=== PATIENT | male | born 1975 | race African-American/Black ===

== ENCOUNTER 2019-08-19 17:01 | Emergency (ER) | payer OTHER, SELFPAY ==
[2019-08-19 17:03] VITALS: BP 161/102; PULSE 132; RESP 18; TEMP 36.7; O2SAT 98; BMI 48.6
--- NOTE | 2019-08-19 17:07 | EKG12_ITS ---
Test Reason : DYSRHYTHMIA Blood Pressure : / mmHG Vent. Rate : 125 BPM Atrial Rate : 125 BPM P-R Int : 154 ms QRS Dur : 088 ms QT Int : 326 ms P-R-T Axes : 057 200 031 degrees QTc Int : 470 ms Sinus tachycardia with occasional Premature ventricular complexes Poor R wave progression Confirmed by AYLIN NAM, YOLANDA ([id number]), magazine editor CAHNTELL SERNA ([id number]) on 08/21/2019 11:11:12 AM Referred By: SKYLA Confirmed By:YOLANDA VIERA MD
--- NOTE | 2019-08-19 17:12 | ED.VIS.GEN ---
History of Present Illness Informant: Patient Onset: Today Context: Sudden Onset Timing: Continuous Quality: Palpitations Location: Chest Current Severity: Severe Maximum Severity: Severe Worsened by: Nothing Relieved by: nothing Associated Symptoms: Lightheadedness Narrative: 43-year-old male with a history of hypertension currently on Lisinopril hydrochlorothiazide presents with palpitations and lightheadedness. Patient ate an edible about an hour ago first time he never done that and now he feels palpitations and lightheadedness. No chest pain. No diaphoresis. No nausea or vomiting. No hallucinations. No recent travel or surgery. No history of DVT or PE. No leg pain or swelling. Over the past several months he has not had any illnesses hospitalizations and has been feeling well <Antione Ramachandran - Last Filed: 08/19/19 17:44> <Elio Ann - Last Filed: 08/19/19 18:33> Chief Complaint: Palpitations Past Medical History Prior records reviewed: Yes Past Medical History: - - HTN Surgical History: no surgical history Lives: With Family Smoking Status: Never smoker Alcohol: Occasional Drugs: Marijuana <Antione Ramachandran - Last Filed: 08/19/19 17:44> <Elio Ann - Last Filed: 08/19/19 18:33> - Allergies and Home Meds Allergies/Adverse Reactions: Allergies No Known Allergies Allergy (Verified 08/19/19 17:05) Primary Care Physician: Neli Flor [Primary Care Provider] - Review of Systems All systems negative except as indicated General: Denies: Chills, Fever, Sweats Eyes: Denies: Visual changes - bilaterally, Diplopia ENT: Denies: Rhinorrhea, Sore throat Cardiovascular: Reports: Palpitations, Heart racing. Denies: Chest pain Respiratory: Denies: Dyspnea, Cough, Dyspnea on exertion Gastrointestinal: Denies: Abdominal pain, Nausea, Vomiting, Diarrhea, Melena, Hematochezia Genitourinary: Denies: Dysuria, Hematuria, Frequency Musculoskeletal: Denies: Back pain, Extremity Pain Skin: Denies: Rash, Wounds Neurological: Denies: Headache, Weakness, Numbness <Antione Ramachandran - Last Filed: 08/19/19 17:44> Physical Exam Vital Signs/Narrative: Vital Signs Temp Pulse Resp BP Pulse Ox 08/19/19 17:03 98.1 F 132 H 18 161/102 H 98 Inital Vital Signs reviewed: Yes General: Well nourished, Well developed, No Acute Distress Head: Normocephalic, Atraumatic Eyes: Perrl, EOMI ENT: Moist mucous membranes, No rhinorrhea Neck: Supple, Nontender Cardiovascular: Regular rhythm, No murmurs, Tachycardia Respiratory: No distress, CTA bilaterally, Chest nontender Abdomen: Soft, Nontender, Nondistended, Normal bowel sounds Back: Nontender, Normal Inspection. Negative for: CVA tenderness, Spinal tenderness Extremities: Nontender, No edema. Negative for: Tenderness, Edema, Calf Tenderness Skin: Normal color, No rash Neurological: Alert, Oriented x3, Cranial nerves II-XII grossly intact, Normal Strength, Normal Sensation, Normal Gait Psychological: Normal affect, Normal Mood <Antione Ramachandran - Last Filed: 08/19/19 17:44> Vital Signs/Narrative: Vital Signs Temp Pulse Resp BP Pulse Ox 08/19/19 17:03 98.1 F 132 H 18 161/102 H 98 <Elio Ann - Last Filed: 08/19/19 18:33> Diagnostic/Tx/Re-eval - Rhythm Strip Rhythm Strip: Sinus Tach Rate: 125 Ectopy: None - EKG Initial EKG Interpretation: Sinus Tachycardia Prior: No Prior - Medical Decision Making EKG was sinus tachycardia rate of 125 bpm with premature ventricular complexes noted but no signs of ischemia. Patient likely having a reaction from the edible. His vital signs stable. 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 Labs are pending. <Antione Ramachandran - Last Filed: 08/19/19 17:44> - Medical Decision Making I supervised the PA and have performed my own pertinent history and physical. Results and treatment plan were discussed. HPI: Patient reports that he ate a marijuana infused gummy. He does not know how much THC he was in this. States that he does not use marijuana typically. Reports that shortly thereafter he began having palpitations and feeling anxious. PE: Vitals: Stable. Afebrile. General: Well-nourished and well-developed. Head: Normocephalic atraumatic. Neck: Supple, no lymphadenopathy. No JVD. Nontender. Cardiovascular: Tachycardic regular rhythm. No murmurs. Respiratory: No respiratory distress. Clear to auscultation bilaterally. Abdominal: Soft, nontender, nondistended, normal bowel sounds. No guarding, rebound, or peritoneal signs. Back: Nontender. Extremities: Nontender, no edema. Skin: Normal color, no rash. Neurologic: Alert and oriented ?3. Cranial nerves II through XII are intact. Normal strength and sensation. Psych: Normal affect. Test results: Abnormal Lab Results 08/19/19 08/19/19 17:20 17:20 WBC 7.2 RBC 5.14 Hgb 14.8 Hct 45.7 MCV 88.9 MCH 28.8 MCHC 32.4 RDW Std Deviation 44.4 H RDW Coeff of Steve 13.7 Plt Count 264 MPV 11.0 Immature Gran % (Auto) 0.100 Neut % (Auto) 41.7 L Lymph % (Auto) 45.6 H [place] % (Auto) 9.0 Eos % (Auto) 3.2 Baso % (Auto) 0.4 Absolute Neuts (auto) 3.0 Absolute Lymphs (auto) 3.29 Nucleated RBC % 0 Sodium 142 Potassium 2.7 L* Chloride 105 Carbon Dioxide 30.0 Anion Gap 7 BUN 13 Creatinine 1.16 Estim Creat Clear Calc 104.55 Est GFR (MDRD) Af Amer 89 Est GFR (MDRD) Non-Af 73 BUN/Creatinine Ratio 11.2 Glucose 118 H Calcium 9.0 TSH 0.55 Emergency Department course: Patient was observed over the course of an hour and a half. His heart rate is decreased into the 90s. He was given 60 mEq of K-Dur p.o. He was also given half a milligram of Ativan p.o. He is resting comfortably. Treatment Plan: The patient is on lisinopril/hydrochlorothiazide. He will have this changed to lisinopril alone. Is given a prescription for 5 days of potassium and instructed to follow-up with his primary care physician to have a repeat potassium obtained and changes in his blood pressure medication if needed. Return to the emergency department for any worsening symptoms. Disposition: Discharged in improved condition. This note was generated with Cortexaation software. It may contain incorrect words, spelling, and punctuation that were not noted in review of the chart prior to signing. <Elio Ann - Last Filed: 08/19/19 18:33> ED Disposition <Antione Ramachandran - Last Filed: 08/19/19 17:44> <Elio Ann - Last Filed: 08/19/19 18:33> - Plan for ED Patient: Disposition: Home or Assisted Living Diagnosis: PVC (premature ventricular contraction), Palpitations, Use of cannabinoid edibles Instructions: Premature Ventricular Contractions, ED Palpitations, Hypokalemia Prescriptions: Potassium Chloride [K-Dur] 40 meq PO DAILY #10 tablet Lisinopril 20 mg PO DAILY #30 tablet Referrals: [facility] Zoraida,Neli Canales [Primary Care Provider] - 3-5 Days
[2019-08-19 17:40] VITALS: BP 143/97; PULSE 105; RESP 18; O2SAT 98
[2019-08-19 17:43] LABS: Absolute Lymphocyte Count 3.29 X10^3/uL (0.83-4.51); Basophil# 0.03 X10^3/uL; Basophil% 0.4 % (0-1); Eosinophil# 0.23 X10^3/uL; Eosinophils% 3.2 % (0-5); Hematocrit 45.7 % (40-54); Hemoglobin 14.8 g/dL (13.0-16.5); Lymphocyte # 3.29 X10^3/ul (4.0); Lymphocyte % 45.6 % (19-41); Mean Corp Hgb Conc 32.4 g/dL (32-36); Mean Corpuscular Hgb 28.8 pg (27.0-32.0); Mean Corpuscular Volume 88.9 fL (80-94); Monocyte# 0.65 X10^3/uL; NRBC Flagged by Analyzer 0 % (0-5); Neutrophil % 41.7 % (47-70); Platelet Count 264 K/mm3 (150-450); RBC Distribution Width CV 13.7 % (11.6-14.6); RBC Distribution Width SD 44.4 fl (35.1-43.9); Red Blood Count 5.14 M/mm3 (4.6-6.2); White Blood Count 7.2 K/mm3 (4.4-11.0)
[2019-08-19 18:16] LABS: Anion Gap 7 (5-15); BUN 13 mg/dL (7-18); BUN/Creat Ratio 11.2 RATIO (10-20); Chloride 105 mmol/L (98-107); Creatinine, Serum 1.16 mg/dL (0.70-1.30); EST Glomerular Filtration Rate 73 mL/min (>60); Est Glom Filt Rate - Afr Amer 89 mL/min (>60); Estimated Creatinine Clearance 104.55 ml/min; Glucose 118 mg/dL (74-106); Sodium Level 142 mmol/L (136-145); Thyroid Stim Hormone (TSH) 0.55 uIU/mL (0.358-3.74)
[2019-08-19 18:17] LABS: Potassium 2.7 mmol/L (3.5-5.1)
[2019-08-19 18:46] VITALS: BP 136/84; PULSE 99; RESP 16; O2SAT 99
[2019-08-19] MEDS: LORazepam 0.5 MG Tablet PO (18:46)
== END 2019-08-19 19:10 | disposition home or self-care (01) ==
PROVIDERS: Emergency Provider Physician Assistant Medical
DX: I49.3 Ventricular premature depolarization (principal); F12.90 Cannabis use, unspecified, uncomplicated; I10 Essential (primary) hypertension; Z79.899 Other long term (current) drug therapy
CPT/HCPCS: 36415; 80048; 84443; 85025; 93005; 99284; A4216

== ENCOUNTER → 2020-01-11 08:51 | Outpatient (CLI) | payer OTHER, SELFPAY ==
[2020-01-11 10:03] LABS: ALB/GLOB Ratio 0.8 RATIO (0.9-2.4); AST(SGOT) 21 U/L (15-37); Alanine Aminotransfer ALT/SGPT 32 U/L (16-61); Albumin, Serum 3.4 g/dL (3.2-5.0); Alkaline Phosphatase 46 U/L (45-117); Anion Gap 7 (5-15); BUN 14 mg/dL (7-18); BUN/Creat Ratio 13.9 RATIO (10-20); Chloride 106 mmol/L (98-107); Creatinine, Serum 1.01 mg/dL (0.70-1.30); EST Glomerular Filtration Rate 86 mL/min (>60); Est Glom Filt Rate - Afr Amer 104 mL/min (>60); Globulin 4.2 g/dL (2.2-4.2); Glucose 102 mg/dL (74-106); Potassium 3.3 mmol/L (3.5-5.1); Protein, Total 7.6 g/dL (6.4-8.2); Sodium Level 141 mmol/L (136-145)
[2020-01-11 10:06] LABS: Vitamin D,25 Hydroxy 27.6 ng/mL
[2020-01-11 10:12] LABS: Hemoglobin A1c 5.7 % (3.8-5.6)
== END ==
LOC: LAB 08:57
PROVIDERS: Visit Provider Family Medicine
DX: I10 Essential (primary) hypertension (principal); R73.01 Impaired fasting glucose; E55.9 Vitamin D deficiency, unspecified
CPT/HCPCS: 36415; 80053; 82306; 83036

== ENCOUNTER 2020-01-11 09:22 | Inpatient (IN) | payer OTHER, SELFPAY ==
[2020-01-11] VITALS (29 sets, daily range): BP systolic 108–160; BP diastolic 59–102; PULSE 83–153; RESP 13–22; TEMP 36.6–37; O2SAT 96–100; BMI 48.8; BMI 48.7
--- NOTE | 2020-01-11 10:06 | ED.DCSUM_ITS ---
History of Present Illness Chief Complaint: Palpitations Informant: Patient Narrative: 44-year old male presenting with a couple of days of upper back pain and slight chest pressure associated with a feeling of dizziness. He denies any cardiac history. He is not had a fever or a cough. He does feel like he short of breath. States that he has an ingrown hair follicle in the back of his head which he thinks is making him feel this way. History of DVT/PE. Patient has sleep apnea and wears a CPAP at night. Otherwise his only medical problem is hypertension. Past Medical History - Allergies and Home Meds Allergies/Adverse Reactions: Allergies No Known Allergies Allergy (Verified 01/11/20 09:22) [facility] - Prior records reviewed: Yes Past Medical History: - - Hypertension, sleep apnea Surgical History: no surgical history Smoking Status: Never smoker Alcohol: Occasional Drugs: None Review of Systems General: Denies: Chills, Fever Eyes: Denies: Visual changes - bilaterally, Diplopia ENT: Denies: Rhinorrhea, Sore throat Cardiovascular: Reports: Chest pain, Palpitations Respiratory: Reports: Dyspnea, Dyspnea on exertion. Denies: Cough Gastrointestinal: Denies: Abdominal pain, Nausea, Vomiting, Diarrhea, Melena, Hematochezia Genitourinary: Denies: Dysuria, Hematuria, Frequency Musculoskeletal: Denies: Back pain, Extremity Pain Skin: Denies: Rash, Wounds Neurological: Denies: Headache, Weakness, Numbness Physical Exam Vital Signs/Narrative: Vital Signs Temp Pulse Resp BP Pulse Ox 01/11/20 09:39 153 H 20 H 118/66 99 01/11/20 09:23 98.5 F 152 H 16 122/102 H 100 General: Obese, No Acute Distress Head: Normocephalic, Atraumatic Eyes: Perrl, EOMI ENT: Moist mucous membranes, No rhinorrhea Cardiovascular: Regular rhythm, Tachycardia Respiratory: No distress, CTA bilaterally Abdomen: Soft Extremities: Nontender, No edema Skin: Normal color, No rash. Negative for: Diaphoresis Neurological: Alert, Oriented x3 Psychological: Normal affect, Normal Mood Diagnostic/Tx/Re-eval Clinical Impression(s) from Imaging Studies Chest X-Ray 01/11/20 11:00 IMPRESSION: Hyperinflation. Electronically Signed: Alphonso Dick, at 12:30 EST , Service support , Laboratory Data 01/11/20 01/11/20 01/11/20 09:50 10:25 10:25 WBC 5.8 RBC 5.02 Hgb 14.6 Hct 45.3 MCV 90.2 MCH 29.1 MCHC 32.2 RDW Std Deviation 46.3 H RDW Coeff of Steve 14.1 Plt Count 239 MPV 11.4 Immature Gran % (Auto) 0.300 Neut % (Auto) 53.4 Lymph % (Auto) 32.2 [place] % (Auto) 11.0 H Eos % (Auto) 2.6 Baso % (Auto) 0.5 Absolute Neuts (auto) 3.1 Absolute Lymphs (auto) 1.87 Nucleated RBC % 0 D-Dimer Quant (PE/DVT) 0.46 Sodium 141 Potassium 3.6 Chloride 104 Carbon Dioxide 32.0 Anion Gap 5 BUN 14 Creatinine 1.02 Estim Creat Clear Calc 117.68 Est GFR (MDRD) Af Amer 103 Est GFR (MDRD) Non-Af 85 BUN/Creatinine Ratio 13.7 Glucose 100 Lactic Acid Calcium 9.0 Total Bilirubin 0.80 AST 18 ALT 33 Alkaline Phosphatase 44 L Troponin I 0.088 H Total Protein 7.7 Albumin 3.4 Globulin 4.3 H Albumin/Globulin Ratio 0.8 L 01/11/20 10:25 WBC RBC Hgb Hct MCV MCH MCHC RDW Std Deviation RDW Coeff of Steve Plt Count MPV Immature Gran % (Auto) Neut % (Auto) Lymph % (Auto) [place] % (Auto) Eos % (Auto) Baso % (Auto) Absolute Neuts (auto) Absolute Lymphs (auto) Nucleated RBC % D-Dimer Quant (PE/DVT) Sodium Potassium Chloride Carbon Dioxide Anion Gap BUN Creatinine Estim Creat Clear Calc Est GFR (MDRD) Af Amer Est GFR (MDRD) Non-Af BUN/Creatinine Ratio Glucose Lactic Acid 1.2 Calcium Total Bilirubin AST ALT Alkaline Phosphatase Troponin I Total Protein Albumin Globulin Albumin/Globulin Ratio - EKG Initial EKG Interpretation: Atrial Flutter - Medical Decision Making Patient presents with feeling of lightheadedness and shortness of breath. This did trigger Covid?19 precautions and is kept in isolation. His initial EKG showed that he was in a flutter and he was given Cardizem twice which did control his rate. He was then given p.o. metoprolol. His chest pressure did improve. X-ray is negative. D-dimer is negative. Troponin was slightly elevated. He was given aspirin. I did address the ingrown hair on the back of his scalp. After further discussion he states this is a sebaceous cyst with Dr. Santos told him did not need to be removed. She did incise and drain it once before. I did crisis intervention counselor him that I could do an incision and drainage on it however this would not be curative the cyst actually has to be removed for it to go away. At this point he does not want me to do any procedure. there is small dense area on the right occiput. He states he will follow-up with Dr. Santos. Impression: 1. Chest pain 2. A flutter 3. Shortness of breath 4. Sebaceous cyst 5. Elevated troponin ED Disposition - Plan for ED Patient: Disposition: Acute Care Hospital [facility] -
[2020-01-11 10:38] LABS: Absolute Lymphocyte Count 1.87 X10^3/uL (0.83-4.51); Absolute Neutrophil Count 3.1 X10^3/uL (2.0-7.7); Basophil# 0.03 X10^3/uL; Basophil% 0.5 % (0-1); Eosinophil# 0.15 X10^3/uL; Eosinophils% 2.6 % (0-5); Hematocrit 45.3 % (40-54); Hemoglobin 14.6 g/dL (13.0-16.5); Lymphocyte # 1.87 X10^3/ul (4.0); Lymphocyte % 32.2 % (19-41); Mean Corp Hgb Conc 32.2 g/dL (32-36); Mean Corpuscular Hgb 29.1 pg (27.0-32.0); Mean Corpuscular Volume 90.2 fL (80-94); Mean Platelet Vol. 11.4 fl (6.2-12.0); Monocyte# 0.64 X10^3/uL; NRBC Flagged by Analyzer 0 % (0-5); Neutrophil # 3.09 X10^3/uL (2.7-7.7); Neutrophil % 53.4 % (47-70); Platelet Count 239 K/mm3 (150-450); RBC Distribution Width CV 14.1 % (11.6-14.6); RBC Distribution Width SD 46.3 fl (35.1-43.9); Red Blood Count 5.02 M/mm3 (4.6-6.2); White Blood Count 5.8 K/mm3 (4.4-11.0)
[2020-01-11 10:47] LABS: D-Dimer Quantitative (DVT/PE) 0.46 FEU/ug/m (0.27-0.49)
[2020-01-11 10:53] LABS: ALB/GLOB Ratio 0.8 RATIO (0.9-2.4); AST(SGOT) 18 U/L (15-37); Alanine Aminotransfer ALT/SGPT 33 U/L (16-61); Albumin, Serum 3.4 g/dL (3.2-5.0); Alkaline Phosphatase 44 U/L (45-117); Anion Gap 5 (5-15); BUN 14 mg/dL (7-18); BUN/Creat Ratio 13.7 RATIO (10-20); Chloride 104 mmol/L (98-107); Creatinine, Serum 1.02 mg/dL (0.70-1.30); EST Glomerular Filtration Rate 85 mL/min (>60); Est Glom Filt Rate - Afr Amer 103 mL/min (>60); Estimated Creatinine Clearance 117.68 ml/min; Globulin 4.3 g/dL (2.2-4.2); Glucose 100 mg/dL (74-106); Potassium 3.6 mmol/L (3.5-5.1); Protein, Total 7.7 g/dL (6.4-8.2); Sodium Level 141 mmol/L (136-145)
[2020-01-11] MEDS: Aspirin 81 MG TAB.CHEW 324 MG PO (10:54)
[2020-01-11] MEDS: 0.9% Normal Saline 1,000 ML 1000 ML IV (10:54)
[2020-01-11 10:55] LABS: Lactic Acid 1.2 mmol/L (0.4-1.9)
[2020-01-11] MEDS: dilTIAZem 25 MG/5 ML Vial IV BOLUS ×2 (10:55→11:45)
--- NOTE | 2020-01-11 11:00 | RAD_ITS ---
STUDY: X-RAY CHEST REASON FOR EXAM: Male, 44 years old. COUGH -- PALPATIONS -- DIZZINESS TECHNIQUE: Single AP portable view of the chest. COMPARISON: Comparison is made with prior study dated 10/25/2012. FINDINGS: Hyperinflation. The lungs are clear. The lungs are clear and expanded. There is no demonstrated pleural abnormality. Normal size heart. Normal mediastinum and shannan. Normal visualized pulmonary arteries. Normal visualized aortic arch and descending thoracic aorta. Normal visualized thoracic spine. Normal visualized ribs, clavicles, and shoulders. There is no demonstrated abnormality of the visualized soft tissue structures of the upper abdomen. RAD/Chest 1 View (Portable) IMPRESSION: Hyperinflation. Electronically Signed: Alphonso Dick, at 12:30 EST , Service support ,
[2020-01-11] MEDS: Metoprolol Tartrate 25 MG Tablet PO (13:19)
[2020-01-11] MEDS: Metoprolol Tartrate 5 MG/5 ML Vial IV (15:01)
--- NOTE | 2020-01-11 15:07 | HP.PCM_ITS ---
Problem List (1) Atrial fibrillation Status: Acute (2) Elevated troponin Status: Acute (3) Infected sebaceous cyst Status: Chronic (4) CHRISTOPHER on CPAP Status: Chronic Comment: Wears CPAP at HS with 14 cmH2O (5) HTN, goal below 130/80 Status: Chronic History of Present Illness Date of Admission: 01/11/20 Chief Complaint: Palpitations, lightheadedness, SOB Mr Patricia is a 44 year old AAM with a PMH of HTN, CHRISTOPHER, infected sebaceous cyst and MO who presented to the ED at [facility] on 01/11/2020 with palpitations, lightheadedness and SOB. He states that he started to have sx on Tuesday while sitting at the bar drinking a Daiquiri and he admits that he has had it ever sin ce then. He came in today because he had and episode where he felt like he was going to pass out. In the ED he was found to have a HR of 150+ and EKG shows A- fib. He was given Cardizem initially and now Metoprolol and his HR are coming down but he remains > 100 BMP. He is afebrile, RR is 16-20 and he is satting 97-99% on RA. Lab work is overall unimpressive except for a troponin of 0.088.His D-dimer was WNL. He also has an infected Sebacceous cyst on the back of his head which he has been dealing with for a good part of 2019. He had an I&D by derm but the sac was not removed. It the recurred but ruptured spontaneously and now occurred for the 3rd time. He states that this happens after he gets his haircut. He is currently on Keflex but it is not improving. I&D was done in the ED today. He admits that he drinks about 2 doubles of vodka and 3 12 oz beers every other day but can go long periods of time without drinking and never has a problem. Past Medical History Past Medical History (Chronic Problems): Chronic Problems Infected sebaceous cyst (Chronic) CHRISTOPHER on CPAP (Chronic) Wears CPAP at HS with 14 cmH2O HTN, goal below 130/80 (Chronic) Allergies No Known Allergies Allergy (Verified 01/11/20 09:22) Home Medications: Ambulatory Orders Medication Instructions Recorded Hydrochlorothiazide [Hctz] 25 mg PO DAILY 01/11/20 Lisinopril 40 mg PO DAILY 01/11/20 Westgate-3/Dha/Epa/Fish Oil [[place] 3 1 cap PO DAILY 01/11/20 500 Softgel] Zinc Sulfate (50mg elemental) 220 mg PO DAILY 01/11/20 [Zinc Sulfate] Surgical History: no surgical history Psychiatric History: No pertinent psych hx Lives: With Family Smoking Status: Never smoker Tobacco Use: Non-smoker Alcohol: Heavy Drugs: None Review of Systems Constitutional: Denies: Anorexia, Chills, Fever, Night Sweats, Malaise, Weakness, Weight Change, Fatigue Eyes: Denies: Blurred vision, Double vision, Drainage, Eyelid Inflammation, Pain, Redness, Vision Change HEENT: Denies: Difficulty Hearing, Difficulty Swallowing, Head Aches, Nasal bleeding, Nasal Congestion, Post Nasal Drip, Sinus Congestion, Sinus Drainage, Sore Throat, Visual Changes Cardiovascular: Reports: Palpitations, - - presyncope. Denies: Chest Pain, Chest Pressure, Chest Tightness, Edema, Heaviness, Light Headedness, Orthopnea, Paroxysmal Noc. Dyspnea, Syncope Respiratory: Reports: Shortness of Breath, Shortness of breath at rest, Shortness of breath upon exertion. Denies: Cough, Hemoptysis, Pleuritic Pain, Sputum production, Wheezing Gastrointestinal: Denies: Abdominal Pain, Constipation, Diarrhea, Dyspepsia, Hematemesis, Hematochezia, Nausea, Melena, Vomiting Genitourinary: Denies: Dysuria, Frequency, Hematuria, Hesitancy, Incontinence, Nocturia, Retention, Urgency Musculoskeletal: Denies: Back Pain, Joint Pain, Joint stiffness, Joint swelling, Joint Tenderness, Muscle pain, Neck Pain Skin: Denies: Dryness, Jaundice, Lesions, Pruritis, Rash, Skin Changes, Wounds Neurological: Denies: Balance problems, Blurred vision, Double vision, Change in Speech, Slurred speech, Confusion, Difficulty swallowing, Focal weakness, Headaches, Incoordination, Numbness, Tingling, Tremor, Seizures Psychiatric: Denies: Anxiety, Depression Endocrine: Denies: Change in Body Habitus, Heat/ Cold Intolerance, Polydipsia Hematologic/ Lymphatic: Denies: Adenopathy, Anemia, Easy Bruising, Easy Bleeding, Petechiae, Purpura VTE Information - Inpt Only VTE Present on Admission: No VTE Mechan Device Prophylaxis: None VTE Pharm Prophylaxis ordered?: Yes - Physical Exam Vitals/I&O's: Vital Signs Temp Pulse Resp BP Pulse Ox 98.5 F 114 H 20 H 119/84 H 100 01/11/20 09:23 01/11/20 15:01 01/11/20 15:01 01/11/20 15:01 01/11/20 15:01 Oxygen Delivery Method Room Air Weight: 186.7 kg Body Mass Index (BMI) 48.8 Intake and Output for Last 24 Hours 01/09/20 01/10/20 01/11/20 23:59 23:59 23:59 Intake Total 1000 / 1000 Balance 1000 / 1000 General: Alert, Oriented x3, Cooperative, Well developed, Well nourished, - - very pleasant MO AAM sitting up in bed talking on phone HEENT: Atraumatic, PERRLA, EOMI, Normocephalic, EAC Clear Oral: Moist Mucosa, No Gingival or Mucosal Lesions/ Ulcerations, - - Mallampati 3-4 Neck: Supple, No JVD, Negative Carotid Bruits, Negative Hepatojugular Reflux, No Nodes, No Nuchal Rigidity, Trachea Midline, Thyroid Normal Size and Texture, - - short thick neck Lungs: Clear to auscultation, Normal air movement, No rhonchi, No wheeze, No rales, - - distant Cardiovascular: Normal S1, Normal S2, No murmurs, Irregular Rate, No rub noted, No Gallop, Tachycardic Abdomen: Bowel Sounds Present, Soft, Non Tender, Non-Distended, No Hepato- splenomegaly, Obese Extremities: No clubbing, No cyanosis, No edema, Capillary Refill Less than 3 Seconds, Peripheral Pulses Normal Skin: No rashes, No breakdown Musculoskeletal: No Tenderness to Palpation of Joints or Extremities, No Muscle Wasting Lymphatic: No Cervical, Supraclavicular, or Inguinal Adenopathy Neurological: Cranial nerves II-XII grossly intact, Deep Tendon Reflexes 2+/4 and Symmetrical, Neuro grossly intact, Motor Exam 5/5 strength throughout, Muscle tone normal, Sensory exam intact to light touch and pain, Coordination normal Psych/Mental Status: Normal Affect, Appropriate Laboratory Results 01/11/20 09:50: D-Dimer Quant (PE/DVT) 0.46 01/11/20 10:15: COVID-19 (TAI) Pending 01/11/20 10:25: WBC 5.8, RBC 5.02, Hgb 14.6, Hct 45.3, MCV 90.2, MCH 29.1, MCHC 32.2, RDW Std Deviation 46.3 H, RDW Coeff of Steve 14.1, Plt Count 239, MPV 11.4, Immature Gran % (Auto) 0.300, Neut % (Auto) 53.4, Lymph % (Auto) 32.2, [place] % (Auto) 11.0 H, Eos % (Auto) 2.6, Baso % (Auto) 0.5, Absolute Neuts (auto) 3.1, Absolute Lymphs (auto) 1.87, Nucleated RBC % 0 01/11/20 10:25: Sodium 141, Potassium 3.6, Chloride 104, Carbon Dioxide 32.0, Anion Gap 5, BUN 14, Creatinine 1.02, Estim Creat Clear Calc 117.68, Est GFR (MDRD) Af Amer 103, Est GFR (MDRD) Non-Af 85, BUN/Creatinine Ratio 13.7, Glucose 100, Calcium 9.0, Total Bilirubin 0.80, AST 18, ALT 33, Alkaline Phosphatase 44 L, Troponin I 0.088 H, Total Protein 7.7, Albumin 3.4, Globulin 4.3 H, Albumin/Globulin Ratio 0.8 L 01/11/20 10:25: Lactic Acid 1.2 Assessment/Plan All Active Problems Atrial fibrillation (Acute) Elevated troponin (Acute) New Onset Atrial Fibrillation -heparin ggt -Metoprolol 100 mg BID -check TSH/tox screen -recommend EtOH cessation -ECHO -Stress test in am -NPO after MN -consult cardiology Elevated Troponin -cycle enzymes -may be only from tachycardia -stress and Echo ordered -check lipids -start baby asa CHRISTOPHER -compliant with CPAP -14 cm H2O with CPAP at HS -device ordered HTN -Hold HCTZ for now -Metoprolol 100 mg BID for HR -hold lisinopril as well (40 mg daily) but use PRN Enaliprilat q 6 hr until we see what that much BB does to BP Infected Sebaceous Cyst -I&D per ED -Bactrim DSto Cover MRSA -blood cx sent but no cx from I&D noted -will need f/u with Derm for sac removal in future MO -recommend wgt loss EtOH Use -recommend cessation -no s/o withdrawal and no drink since yesterday -monitor DVT Prophylaxis -heparin ggt Code Status -Full Inpatient E&M: 00466 Init Hosp L3
--- NOTE | 2020-01-11 18:56 | ECHOCS_ITS ---
Reason For Study: NEW AFIB Procedure This was a 2D Doppler, Color Flow transthoracic echocardiogram. The study was technically difficult. Contrast injection was performed. Exam performed portable in patient room. Left Ventricle Moderately dilated left ventricle. Moderate segmental systolic dysfunction (see wall motion). The estimated ejection fraction is 30 %. There is evidence of diastolic dysfunction. Posterior-Basal: Hypokinetic. Mid-Anterior : Hypokinetic. Mid-Lateral : Hypokinetic. Mid-Posterior: Hypokinetic. Mid- Inferior: Hypokinetic. Mid-inferoseptal : Hypokinetic. Mid-anteroseptal : Hypokinetic. Anterior [place] : Hypokinetic. Inferior [place] : Hypokinetic. Lateral [place] : Hypokinetic. Septal [place] : Hypokinetic. Right Ventricle Normal RV size. Normal systolic function. Atria The left atrium is mildly enlarged. Normal right atrium. No doppler evidence for ASD. Mitral Valve There is no mitral annular calcification. Normal mitral valve. Mild (1+) mitral valve insufficiency. Tricuspid Valve Normal tricuspid valve. Mild tricuspid valve insufficiency. Right ventricular systolic pressure estimated to be 37 mmHg. Aortic Valve The aortic valve is not well visualized. Pulmonic Valve The pulmonic valve is not well visualized. Great Vessels Mildly dilated aortic root. Pericardium/Pleural No pericardial effusion. Medication Diluted definity 3.0ml given slow IV push to enhance endocardial definition. MMode/2D Measurements & Calculations LVIDd: 6.7 cm IVSd: 0.91 cm Ao root diam: 4.0 cm LVIDs: 5.8 cm LVPWd: 0.94 cm RVDd: 3.6 cm FS: 13.1 % LAV(MOD-bp): 59.6 ml LVAd ap4: 50.5 cm2 SV(MOD-sp4): 66.2 ml LAV(MOD-bp) Indexed: 19.6 ml/m2 EDV(MOD-sp4): 231.2 ml LAV(MOD-sp2): 67.2 ml EDV(sp4-el): 237.7 ml LAV(MOD-sp4): 51.6 ml LVAs ap4: 40.8 cm2 ESV(MOD-sp4): 165.0 ml ESV(sp4-el): 162.8 ml EF(MOD-sp4): 28.6 % EF(sp4-el): 31.5 % SV(sp4-el): 74.9 ml LA A4 area: 18.9 cm2 LA dimension(2D): 3.9 cm Time Measurements MV dec time: 0.22 sec Doppler Measurements & Calculations MV E max mal: 115.3 cm/sec Lat Peak E' Mal: 5.4 cm/sec Med Peak E' Mal: 5.9 cm/sec MV A max mal: 68.0 cm/sec E/E' lat: 21.5 E/E' med: 19.4 MV E/A: 1.7 TR max mal: 291.4 cm/sec TR max P.0 mmHg Interpretation Summary The study was technically difficult. Contrast injection was performed. Moderately dilated left ventricle. Moderate segmental systolic dysfunction (see wall motion). The estimated ejection fraction is 30 %. The left atrium is mildly enlarged. Mild (1+) mitral valve insufficiency. Mild tricuspid valve insufficiency. Mildly dilated aortic root. Right ventricular systolic pressure estimated to be 37 mmHg. There is evidence of diastolic dysfunction. Ordering Physician: Marcela Marino Referring Physician: THERON CARBAJAL Performed By: Zoë Ruvalcaba RDCS, KWAME
[2020-01-11] MEDS: dilTIAZem 25 MG/5 ML Vial 20 MG IV BOLUS (20:12)
[2020-01-11 20:45] LABS: International Normalized Ratio 1.1; Prothrombin Time (Protime)PT. 13.7 SECONDS (11.7-14.9)
[2020-01-11 20:46] LABS: Partial Thromboplast Time 26.9 Seconds (24.1-36.2)
[2020-01-11] MEDS: Amiodarone 360 MG in Dextrose 5% Viaflo Bag 192.8 ML 33.3 MG CONT INF (20:56)
[2020-01-11] MEDS: Heparin Injection (Vial) 5,000 UNIT/ML VIAL 15000 UNIT IV (21:14)
[2020-01-11] MEDS: HEPARIN/D5w 25,000 UNITS 25,000 UNITS/250 ML IV.SOLN. 22 UNITS IV (21:15)
[2020-01-11] MEDS: Smz/Tmp Ds Tablet 2 TABLET PO (21:47)
[2020-01-11] MEDS: Digoxin 250 MCG/ML Ampul 500 MCG IV (22:55)
[2020-01-12] VITALS (28 sets, daily range): BP systolic 93–141; BP diastolic 61–100; PULSE 72–91; RESP 15–20; TEMP 36.2–37.1; O2SAT 94–99
[2020-01-12] MEDS: Amiodarone 360 MG in Dextrose 5% Viaflo Bag 192.8 ML 16.7 MG CONT INF (03:15)
[2020-01-12 04:34] LABS: Absolute Lymphocyte Count 2.94 X10^3/uL (0.83-4.51); Absolute Neutrophil Count 3.8 X10^3/uL (2.0-7.7); Basophil# 0.03 X10^3/uL; Basophil% 0.4 % (0-1); Eosinophil# 0.29 X10^3/uL; Eosinophils% 3.8 % (0-5); Hematocrit 42.1 % (40-54); Hemoglobin 13.2 g/dL (13.0-16.5); Lymphocyte # 2.94 X10^3/ul (4.0); Lymphocyte % 38.4 % (19-41); Mean Corp Hgb Conc 31.4 g/dL (32-36); Mean Corpuscular Hgb 28.6 pg (27.0-32.0); Mean Corpuscular Volume 91.1 fL (80-94); Mean Platelet Vol. 11.5 fl (6.2-12.0); Monocyte# 0.61 X10^3/uL; NRBC Flagged by Analyzer 0 % (0-5); Neutrophil # 3.77 X10^3/uL (2.7-7.7); Neutrophil % 49.1 % (47-70); Platelet Count 231 K/mm3 (150-450); RBC Distribution Width CV 14.3 % (11.6-14.6); RBC Distribution Width SD 47.9 fl (35.1-43.9); Red Blood Count 4.62 M/mm3 (4.6-6.2); White Blood Count 7.7 K/mm3 (4.4-11.0)
[2020-01-12 04:35] LABS: Partial Thromboplast Time 76.7 Seconds (24.1-36.2)
[2020-01-12 04:56] LABS: Anion Gap 8 (5-15); BUN 14 mg/dL (7-18); BUN/Creat Ratio 14.3 RATIO (10-20); Calcium,Total 8.3 mg/dL (8.5-10.1); Chloride 105 mmol/L (98-107); Cholesterol 138 mg/dL (200); Creatinine, Serum 0.98 mg/dL (0.70-1.30); EST Glomerular Filtration Rate 89 mL/min (>60); Est Glom Filt Rate - Afr Amer 107 mL/min (>60); Estimated Creatinine Clearance 122.49 ml/min; Glucose 110 mg/dL (74-106); High Density Lipoprotein 41 mg/dL; Potassium 3.3 mmol/L (3.5-5.1); Sodium Level 140 mmol/L (136-145); Thyroid Stim Hormone (TSH) 3.16 uIU/mL (0.358-3.74); Triglycerides 121 mg/dL; Very Low Density Lipoprotein 24 mg/dL (5-40)
--- NOTE | 2020-01-12 07:31 | EKG12_ITS ---
Test Reason : AM EKG Blood Pressure : / mmHG Vent. Rate : 076 BPM Atrial Rate : 076 BPM P-R Int : 164 ms QRS Dur : 090 ms QT Int : 402 ms P-R-T Axes : 056 238 017 degrees QTc Int : 452 ms Normal sinus rhythm Normal ECG When compared with ECG of 12-JAN-2020 07:44, MANUAL COMPARISON REQUIRED, DATA IS UNCONFIRMED Confirmed by PEPE NAM, BRETT ([id number]), book or script editor JOSEPHINE COHEN ([id number]) on 01/15/2020 11:13:52 AM Referred By: LAYLA Confirmed By:BRETT CANTU MD
[2020-01-12] MEDS: HEPARIN/D5w 25,000 UNITS 25,000 UNITS/250 ML IV.SOLN. 22 UNITS IV (07:59)
[2020-01-12 10:55] LABS: Partial Thromboplast Time > 250.0 Seconds (24.1-36.2)
--- NOTE | 2020-01-12 11:02 | NURSING ---
Echo in progress
--- NOTE | 2020-01-12 11:41 | CON.PCM_ITS ---
Problem List (1) Atrial fibrillation/flutter Status: Acute (2) Elevated troponin Status: Acute (3) HTN (hypertension) Status: Chronic (4) CHRISTOPHER on CPAP Status: Chronic Comment: Wears CPAP at HS with 14 cmH2O Reason for Consult Date of Consultation: 01/12/20 History of Present Illness: The patient is a 44 year old -Polish male who presents for evaluation of atrial fibrillation/flutter and abnormal troponin I levels superimposed upon hypertension and CHRISTOPHER. He states for several days now he has been noticing a difference in his underlying heart rate/rhythm. Based upon symptoms yesterday along with having chest discomfort and having episodes of being somewhat lightheaded he presented to the [facility] emergency department for further evaluation. He was found to be in atrial flutter with a rapid ventricular response. He required multiple medications in attempt to slow his rate including IV beta-blockers, IV calcium channel antagonist, and IV digitalis. He was eventually placed on IV calcium channel antagonist and IV amiodarone. Over time his rhythm did slow and he has subsequently converted to sinus rhythm. He states he is usually up and active. On his good days he does feel good with no concerning symptoms. However he states the last several days he has noted the ongoing concerns. He has had no obvious acute orthopnea or PND or worsening peripheral pitting edema. He denies any near-syncope or syncope. He states he has had an occasional alcoholic beverage and noted some change in his sensation of his heart rate following an alcoholic beverage. He states he is also been using an [id number] decongestant prescribed for his mother. He is unsure of the chemical make-up. He states he has occasionally used marijuana to relieve stress. However he states he does not do that on a daily basis. He has been noted to have indeterminate troponin I levels. His ECG demonstrated the appearance of atrial flutter with poor R wave progression with an inferior AR pattern of indeterminate age. His follow-up ECG demonstrated sinus rhythm with poor R wave progression. He states he was evaluated by cardiology many years ago. 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 He does not recall what type of cardiovascular studies he had performed. He believes this was all related to hypertension. States when he does take his antihypertensive therapy his blood pressure is under reasonably good control. He notes there are times that his medications run out. When they do he does not feel good and he states he will ask somebody to drive him to the pharmacy to collect his medications. [] Past Medical History Allergies/Adverse Reactions: Allergies No Known Allergies Allergy (Verified 01/11/20 09:22) Home Medications: Ambulatory Orders Medication Instructions Recorded Hydrochlorothiazide [Hctz] 25 mg PO DAILY 01/11/20 Lisinopril 40 mg PO QHS 01/11/20 Freehold-3/Dha/Epa/Fish Oil [Freehold 3 1 cap PO DAILY 01/11/20 500 Softgel] Zinc Sulfate (50mg elemental) 220 mg PO DAILY 01/11/20 [Zinc Sulfate] Past Medical History (Chronic Problems): Chronic Problems Infected sebaceous cyst (Chronic) CHRISTOPHER on CPAP (Chronic) Wears CPAP at with 14 cmH2O HTN, goal below 130/80 (Chronic) HTN (hypertension) (Chronic) Surgical History: no surgical history Psychiatric History: No pertinent psych hx Lives: With Family Smoking Status: Never smoker Tobacco Use: Non-smoker Alcohol: Occasional Drugs: None Review of Systems - Review of Systems General: Denies: Fever, Night Sweats, Fatigue Cardiovascular: Reports: Chest Discomfort, Chest Discomfort at Rest, Palpitations, Lightheadedness Respiratory: Denies: Cough, Sputum Production, Hemoptysis Gastrointestinal: Denies: Hematemesis, Hematochezia, Melena Genitourinary: Denies: Dysuria, Hematuria Skin: Denies: Rash Subjectve: This is a 44-year-old -Polish male who appears to be resting comfortably in no acute distress. Objective: Vital Signs Temp Pulse Resp BP Pulse Ox 98.1 F 72 18 104/66 96 01/12/20 08:15 01/12/20 09:37 01/12/20 09:37 01/12/20 09:37 01/12/20 09:37 Oxygen Delivery Method Room Air Weight: 411 lb Body Mass Index (BMI) 48.7 Intake and Output for Last 24 Hours 01/10/20 01/11/20 01/12/20 23:59 23:59 23:59 Intake Total 1133.08 / 1508.08 997.23 / 997.23 Balance 1133.08 / 1508.08 997.23 / 997.23 General: Awake, Alert, Oriented x 3, Cooperative, No Acute Distress, Obese HEENT: Atraumatic, Normocephalic, PERRL, EOMI, Sclera Non Icteric Neck: Supple, Good ROM, No JVD Lungs: Clear to auscultation Cardiovascular: Regular Rhythm, Normal S1, Normal S2 Abdomen: Bowel Sounds Present, Soft Extremities: No edema Neurological: No Focal Motor or Sensory Deficit Psych/Mental Status: Appropriate 01/11/20 19:54: Troponin I 0.097 H 01/11/20 19:54: PT 13.7, INR 1.1, APTT 26.9 01/11/20 23:03: Troponin I 0.082 H 01/12/20 01:50: Troponin I 0.130 H 01/12/20 04:00: WBC 7.7, RBC 4.62, Hgb 13.2, Hct 42.1, MCV 91.1, MCH 28.6, MCHC 31.4 L, Plt Count 231, MPV 11.5, Immature Gran % (Auto) 0.300, Neut % (Auto) 49.1, Lymph % (Auto) 38.4, [place] % (Auto) 8.0, Eos % (Auto) 3.8, Baso % (Auto) 0.4, Absolute Neuts (auto) 3.8, Nucleated RBC % 0 01/12/20 04:05: Sodium 140, Potassium 3.3 L, Chloride 105, Carbon Dioxide 27.0, Anion Gap 8, BUN 14, Creatinine 0.98, Est GFR (MDRD) Af Amer 107, Est GFR (MDRD) Non-Af 89, BUN/Creatinine Ratio 14.3, Glucose 110 H, Calcium 8.3 L, Triglycerides 121, Cholesterol 138, LDL Cholesterol 73, VLDL Cholesterol 24, HDL Cholesterol 41 01/12/20 04:05: APTT 76.7 H 01/12/20 10:17: APTT > 250.0 H* Rhythm: Sinus rhythm EKG: As noted above CXR: Preliminary evaluation: No acute cardiopulmonary disease process appreciated: Please see official report Assessment/Plan 1. Atrial fibrillation/flutter The patient presented with findings on ECG compatible with atrial flutter. On his reference test clerk there have been questions of paroxysmal atrial fibrillation. He has been treated with rate control therapy, antiarrhythmic therapy, and anticoagulant therapy. He has had conversion to sinus rhythm. An attempt will be made to alter his IV medications with respect to his rate control and antiarrhythmic medications to oral rate control therapy. Hopefully he will not require long-term antiarrhythmic therapy, however, depending upon his ongoing cardiac rhythm he may need to be considered for this option. Eventually he will be converted from his IV anticoagulant therapy to an oral anticoagulant. In the meantime he is pending further evaluation with a transthoracic echocardiogram to evaluate his atrial and ventricular size as well as his ventricular function. 2. Abnormal cardiac enzymes He does have abnormal troponin I levels. This may be secondary to his atrial dysrhythmia with rapid ventricular response and a type II response. However underlying CAD has not necessarily been excluded. At the present time we will continue his evaluation care as noted. Based upon his concerning symptoms and his objective findings it would not be unreasonable to consider him for further definitive evaluation with diagnostic cardiac catheterization. 3. Hypertension His blood pressure will be followed. He may need readjustment of his antihypertensive therapy. As part of his antihypertensive therapy he was on HCTZ. This may contribute to why his potassium level is somewhat low. He will be receiving potassium supplements. His potassium level can be rechecked. 4. CHRISTOPHER He does have a report of CHRISTOPHER and uses a CPAP therapy. This may be a contributing factor to his atrial dysrhythmia. Overall at the present time it is recommended the patient continue to be monitored, continue medical therapy with adjustment, continue his noninvasive valuation, and be considered for further invasive evaluation as noted. The above has been discussed with the patient. He states he will consider his options, although, he states that he would like to be released home as soon as possible and not remain in the hospital. The patient's case is also been discussed with Tiffany Hannah CNP, of the [facility] staff. This note was generated using a voice recognition system and there may be incorrect words, spelling or punctuation that were not noted when reviewing the office note prior to saving.
[2020-01-12] MEDS: Metoprolol Tartrate 50 MG Tablet PO ×2 (12:07→21:55)
[2020-01-12] MEDS: Smz/Tmp Ds Tablet 2 TABLET PO ×2 (12:07→21:54)
[2020-01-12] MEDS: Aspirin 81 MG TAB.CHEW PO (12:08)
--- NOTE | 2020-01-12 13:25 | PN_ITS ---
<Tiffany Hannah SHAFTING WORKER - Last Filed: 01/12/20 13:39> Patient Problems: Active and Suspected Problems Atrial fibrillation (Acute) Elevated troponin (Acute) Atrial fibrillation/flutter (Acute) Subjective: Patient seen and examined. Denies chest pain. Denies further palpitations, shortness of breath. - Physical Exam Vitals/I&O's: Vital Signs Temp Pulse Resp BP Pulse Ox 98.1 F 80 15 117/87 H 95 01/12/20 08:15 01/12/20 12:07 01/12/20 12:04 01/12/20 12:04 01/12/20 12:04 Oxygen Delivery Method Room Air Weight: 411 lb Body Mass Index (BMI) 48.7 Intake and Output for Last 24 Hours 01/10/20 01/11/20 01/12/20 23:59 23:59 23:59 Intake Total 1133.08 / 1508.08 997.23 / 997.23 Balance 1133.08 / 1508.08 997.23 / 997.23 General: Alert, Oriented x3, Cooperative HEENT: Atraumatic, PERRLA, EOMI, Normocephalic Neck: Supple, No JVD, Negative Carotid Bruits Lungs: Clear to auscultation, Normal air movement Cardiovascular: Regular rate, No murmurs Abdomen: Bowel Sounds Present, Soft, Non Tender, Non-Distended, Obese Extremities: No clubbing, No cyanosis, No edema Skin: No rashes, No breakdown, - - Sebaceous cyst posterior scalp Musculoskeletal: No Tenderness to Palpation of Joints or Extremities Neurological: Cranial nerves II-XII grossly intact, Neuro grossly intact Psych/Mental Status: Normal Affect, Appropriate Microbiology Past 72 Hours 01/11/20 18:05 Mucosa - Nose - Final 01/11/20 10:46 Mucosa - Nasopharyngeal Respiratory Panel (PCR) - Final Laboratory Results 01/11/20 19:54: Troponin I 0.097 H 01/11/20 19:54: PT 13.7, INR 1.1, APTT 26.9 01/11/20 23:03: Troponin I 0.082 H 01/12/20 01:50: Troponin I 0.130 H 01/12/20 04:00: WBC 7.7, RBC 4.62, Hgb 13.2, Hct 42.1, MCV 91.1, MCH 28.6, MCHC 31.4 L, RDW Std Deviation 47.9 H, RDW Coeff of Steve 14.3, Plt Count 231, MPV 11.5, Immature Gran % (Auto) 0.300, Neut % (Auto) 49.1, Lymph % (Auto) 38.4, [place] % (Auto) 8.0, Eos % (Auto) 3.8, Baso % (Auto) 0.4, Absolute Neuts (auto) 3.8, Absolute Lymphs (auto) 2.94, Nucleated RBC % 0 01/12/20 04:05: Sodium 140, Potassium 3.3 L, Chloride 105, Carbon Dioxide 27.0, Anion Gap 8, BUN 14, Creatinine 0.98, Estim Creat Clear Calc 122.49, Est GFR (MDRD) Af Amer 107, Est GFR (MDRD) Non-Af 89, BUN/Creatinine Ratio 14.3, Glucose 110 H, Calcium 8.3 L, Triglycerides 121, Cholesterol 138, LDL Cholesterol 73, VLDL Cholesterol 24, HDL Cholesterol 41, TSH 3.16 01/12/20 04:05: APTT 76.7 H 01/12/20 10:17: APTT > 250.0 H* Current Medications Acetaminophen (Acetaminophen 325 Mg Tablet) 650 mg PO Q6H PRN PRN PRN Reason: Pain Score 1-10/Temp > 100.7 F Al Hydroxide/Mg Hydroxide (Mag Hydrox/Al Hydrox/Simeth 30 Ml Udc) 30 ml PO Q6H PRN PRN PRN Reason: Gastric Burning Albuterol Sulfate (Albuterol 2.5 Mg/3 Ml Vial.Neb.) 2.5 mg INHALATION Q2H PRN PRN PRN Reason: SOB/Wheezing Aspirin (Aspirin 81 Mg Tab.Chew) 81 mg PO DAILY@0800 [place] Last Admin: 01/12/20 12:08 Dose: 81 mg Documented by: Enalaprilat (Enalaprilat 1.25 Mg/Ml Vial) 0.625 mg IV Q6H PRN PRN Reason: SBP> 160 Heparin Sodium (Porcine) (Heparin Injection (Vial) 5,000 Unit/Ml Vial) 0 unit IV UD PRN; Protocol PRN Reason: dose adjustment Diltiazem HCl 125 mg/ Dextrose 125 mls @ 10 mls/hr IV .[id number] [facility]; Protocol Last Admin: 01/12/20 10:48 Dose: 5 mg/hr, 5 mls/hr Documented by: Heparin Sodium/Dextrose () 25,000 units in 250 mls @ 22 mls/hr IV .[id number] [facility]; Protocol Last Titration: 01/12/20 13:15 Dose: 1,900 units/hr, 19 mls/hr Documented by: Ibuprofen (Ibuprofen 400 Mg Tablet) 400 mg PO Q4H PRN PRN PRN Reason: Pain Score 1-10/Temp > 100.7 F Lisinopril (Lisinopril 20 Mg Tablet) 20 mg PO BID [facility] Melatonin (Melatonin 3 Mg Tablet) 3 mg PO QHS PRN PRN PRN Reason: INSOMNIA Metoprolol Tartrate (Metoprolol Tartrate 50 Mg Tablet) 50 mg PO BID [facility] Last Admin: 01/12/20 12:07 Dose: 50 mg Documented by: Ondansetron HCl (Ondansetron 4 Mg/2 Ml Vial) 4 mg IV Q8H PRN PRN PRN Reason: NAUSEA/VOMITING Senna/Docusate Sodium (Senna/Docusate Sodium 1 Tablet) 2 tablet PO BID PRN PRN PRN Reason: Constipation Sodium Chloride (0.9% Saline Lock 10 Ml Syringe) 10 - 40 ml IV UD PRN PRN Reason: SALINE FLUSH Trimethoprim/Sulfamethoxazole (Smz/Tmp Ds Tablet) 2 tablet PO BID [facility] Last Admin: 01/12/20 12:07 Dose: 2 tablet Documented by: Zinc Sulfate (Zinc Sulfate (50mg Elemental) 220 Mg Capsule) 220 mg PO DAILY [facility] Last Admin: 01/12/20 12:08 Dose: 220 mg Documented by: Medical Necessity - Tobacco Use Smoking Status: Never smoker Tobacco Use: Non-smoker Assessment/Plan All Active Problems Atrial fibrillation (Acute) Elevated troponin (Acute) Atrial fibrillation/flutter (Acute) 1. New onset atrial fibrillation-previously on Cardizem drip, converted to sinus rhythm. Continue metoprolol. Heparin drip. Possible cath on Tuesday due to elevated troponin. Echocardiogram pending. 2. Indeterminate troponin-cardiology following, plan per above. Possible demand ischemia as result of #1. 3. Infected sebaceous cyst-posterior skull, neck. On Bactrim. Will need outpatient follow-up with Dr. Santos for removal who has performed I&D in the past. 4. Hypertension-stable, continue lisinopril. HCTZ on hold. 5. CHRISTOPHER-continue home CPAP regimen. 6. Alcohol dependence-encouraged cessation. 7. Morbid obesity-encouraged diet and lifestyle modifications. DVT prophylaxis-Heparin drip This patient was seen by NESSA Denson under the supervision of Dr. Orlando. <Ariadna Orlando - Last Filed: 01/12/20 14:09> - Physical Exam Vitals/I&O's: Vital Signs Temp Pulse Resp BP Pulse Ox 98.1 F 80 15 117/87 H 95 01/12/20 08:15 01/12/20 12:07 01/12/20 12:04 01/12/20 12:04 01/12/20 12:04 Oxygen Delivery Method Room Air Weight: 411 lb Body Mass Index (BMI) 48.7 Intake and Output for Last 24 Hours 01/10/20 01/11/20 01/12/20 23:59 23:59 23:59 Intake Total 1133.08 / 1508.08 1159.78 / 1159.78 Balance 1133.08 / 1508.08 1159.78 / 1159.78 Microbiology Past 72 Hours 01/11/20 18:05 Mucosa - Nose - Final 01/11/20 10:46 Mucosa - Nasopharyngeal Respiratory Panel (PCR) - Final Laboratory Results 01/11/20 19:54: Troponin I 0.097 H 01/11/20 19:54: PT 13.7, INR 1.1, APTT 26.9 01/11/20 23:03: Troponin I 0.082 H 01/12/20 01:50: Troponin I 0.130 H 01/12/20 04:00: WBC 7.7, RBC 4.62, Hgb 13.2, Hct 42.1, MCV 91.1, MCH 28.6, MCHC 31.4 L, RDW Std Deviation 47.9 H, RDW Coeff of Steve 14.3, Plt Count 231, MPV 11.5, Immature Gran % (Auto) 0.300, Neut % (Auto) 49.1, Lymph % (Auto) 38.4, [place] % (Auto) 8.0, Eos % (Auto) 3.8, Baso % (Auto) 0.4, Absolute Neuts (auto) 3.8, Absolute Lymphs (auto) 2.94, Nucleated RBC % 0 01/12/20 04:05: Sodium 140, Potassium 3.3 L, Chloride 105, Carbon Dioxide 27.0, Anion Gap 8, BUN 14, Creatinine 0.98, Estim Creat Clear Calc 122.49, Est GFR (MDRD) Af Amer 107, Est GFR (MDRD) Non-Af 89, BUN/Creatinine Ratio 14.3, Glucose 110 H, Calcium 8.3 L, Triglycerides 121, Cholesterol 138, LDL Cholesterol 73, VLDL Cholesterol 24, HDL Cholesterol 41, TSH 3.16 01/12/20 04:05: APTT 76.7 H 01/12/20 10:17: APTT > 250.0 H* Current Medications Acetaminophen (Acetaminophen 325 Mg Tablet) 650 mg PO Q6H PRN PRN PRN Reason: Pain Score 1-10/Temp > 100.7 F Al Hydroxide/Mg Hydroxide (Mag Hydrox/Al Hydrox/Simeth 30 Ml Udc) 30 ml PO Q6H PRN PRN PRN Reason: Gastric Burning Albuterol Sulfate (Albuterol 2.5 Mg/3 Ml Vial.Neb.) 2.5 mg INHALATION Q2H PRN PRN PRN Reason: SOB/Wheezing Aspirin (Aspirin 81 Mg Tab.Chew) 81 mg PO DAILY@0800 [facility] Last Admin: 01/12/20 12:08 Dose: 81 mg Documented by: Enalaprilat (Enalaprilat 1.25 Mg/Ml Vial) 0.625 mg IV Q6H PRN PRN Reason: SBP> 160 Heparin Sodium (Porcine) (Heparin Injection (Vial) 5,000 Unit/Ml Vial) 0 unit IV UD PRN; Protocol PRN Reason: dose adjustment Diltiazem HCl 125 mg/ Dextrose 125 mls @ 10 mls/hr IV .[id number] [facility]; Protocol Last Titration: 01/12/20 13:15 Dose: 0 mg/hr, 0 mls/hr Documented by: Heparin Sodium/Dextrose () 25,000 units in 250 mls @ 22 mls/hr IV .[id number] [facility]; Protocol Last Titration: 01/12/20 13:15 Dose: 1,900 units/hr, 19 mls/hr Documented by: Ibuprofen (Ibuprofen 400 Mg Tablet) 400 mg PO Q4H PRN PRN PRN Reason: Pain Score 1-10/Temp > 100.7 F Lisinopril (Lisinopril 20 Mg Tablet) 20 mg PO BID [facility] Melatonin (Melatonin 3 Mg Tablet) 3 mg PO QHS PRN PRN PRN Reason: INSOMNIA Metoprolol Tartrate (Metoprolol Tartrate 50 Mg Tablet) 50 mg PO BID [facility] Last Admin: 01/12/20 12:07 Dose: 50 mg Documented by: Ondansetron HCl (Ondansetron 4 Mg/2 Ml Vial) 4 mg IV Q8H PRN PRN PRN Reason: NAUSEA/VOMITING Senna/Docusate Sodium (Senna/Docusate Sodium 1 Tablet) 2 tablet PO BID PRN PRN PRN Reason: Constipation Sodium Chloride (0.9% Saline Lock 10 Ml Syringe) 10 - 40 ml IV UD PRN PRN Reason: SALINE FLUSH Trimethoprim/Sulfamethoxazole (Smz/Tmp Ds Tablet) 2 tablet PO BID [facility] Last Admin: 01/12/20 12:07 Dose: 2 tablet Documented by: Zinc Sulfate (Zinc Sulfate (50mg Elemental) 220 Mg Capsule) 220 mg PO DAILY [facility] Last Admin: 01/12/20 12:08 Dose: 220 mg Documented by: Assessment/Plan Patient seen by NESSA Denson under my supervision. Patient seen and examined. He was admitted with a complaint of palpitations and was found to be in A. fib. He has been managed for new onset A. fib with RVR. Patient has no complaints this morning and feels well. He is on Cardizem drip but had converted to sinus rhythm. Cardizem drip therefore weaned off and started on metoprolol. He remains on heparin drip. He has no complaints and review of systems otherwise negative. Labs and vitals reviewed. O/E; Vital Signs Temp Pulse Resp BP Pulse Ox 98.1 F 80 15 117/87 H 95 01/12/20 08:15 01/12/20 12:07 01/12/20 12:04 01/12/20 12:04 01/12/20 12:04 General: Alert, Oriented x3, Cooperative HEENT: Atraumatic, PERRLA, EOMI, Normocephalic Neck: Supple, No JVD, Negative Carotid Bruits Lungs: Clear to auscultation, Normal air movement Cardiovascular: Regular rate and rhythm, no murmurs Abdomen: Bowel Sounds Present, Soft, Non Tender, Non-Distended, Obese Extremities: No clubbing, No cyanosis, No edema Skin: No rashes, No breakdown, - - Sebaceous cyst posterior scalp Musculoskeletal: No Tenderness to Palpation of Joints or Extremities Neurological: Cranial nerves II-XII grossly intact, Neuro grossly intact Psych/Mental Status: Normal Affect, Appropriate Plan is to continue patient on metoprolol and heparin drip. For cardiac cath on Tuesday. Potassium is mildly low at 3.3 and this will be replaced. Of note, troponins were initially 0.088 with peaked at 0.130 so as mentioned he is to have a cardiac cath on Tuesday. Patient counseled about his weight since he has CHRISTOPHER which is a contributory factor to A. fib. Patient said he is considering getting a gastric bypass and want to follow-up with his primary care doctor for appropriate referral as needed. Rest as per NESSA Denson's notes which I have reviewed and endorsed. Inpatient E&M: [id number] Subs Hosp L3
[2020-01-12 19:17] LABS: Partial Thromboplast Time 34.7 Seconds (24.1-36.2)
[2020-01-12] MEDS: Heparin Injection (Vial) 5,000 UNIT/ML VIAL IV (20:11)
--- NOTE | 2020-01-12 20:22 | NURSING ---
PTT RESULT OF 34.7 NOTED. HEPARIN BOLUS 3000 UNITS IV GIVEN AND HEPARIN GTT INCREASED BY 2 UNITS HR. HEPARIN NOW INFUSING AT 2100 UNITS/HR. REPEAT PTT IN 6 HRS ORDERED.
[2020-01-12] MEDS: Lisinopril 20 MG Tablet PO (22:41)
[2020-01-12] MEDS: HEPARIN/D5w 25,000 UNITS 25,000 UNITS/250 ML IV.SOLN. 21 UNITS IV (22:43)
[2020-01-13] VITALS (12 sets, daily range): BP systolic 116–130; BP diastolic 62–81; PULSE 53–84; RESP 16–18; TEMP 36.6–36.9; O2SAT 94–98
[2020-01-13 02:51] LABS: Partial Thromboplast Time 56.9 Seconds (24.1-36.2)
[2020-01-13 02:55] LABS: Anion Gap 5 (5-15); BUN 13 mg/dL (7-18); BUN/Creat Ratio 12.4 RATIO (10-20); Calcium,Total 8.5 mg/dL (8.5-10.1); Chloride 109 mmol/L (98-107); Creatinine, Serum 1.05 mg/dL (0.70-1.30); EST Glomerular Filtration Rate 82 mL/min (>60); Est Glom Filt Rate - Afr Amer 99 mL/min (>60); Estimated Creatinine Clearance 114.32 ml/min; Glucose 108 mg/dL (74-106); Potassium 3.3 mmol/L (3.5-5.1); Sodium Level 139 mmol/L (136-145)
--- NOTE | 2020-01-13 03:49 | NURSING ---
0230: PTT RESULT NOTED AT 56.9. REQUIRES NO ADJUSTMENTS. HEPARIN DRIP CONTINUES TO INFUSE AT 2100 UNITS/HR. NEXT PTT DUE IN 6 HOURS= 0830
[2020-01-13] MEDS: Smz/Tmp Ds Tablet 2 TABLET PO ×2 (08:55→22:15)
[2020-01-13] MEDS: Aspirin 81 MG TAB.CHEW PO (08:55)
[2020-01-13] MEDS: Metoprolol Tartrate 50 MG Tablet PO ×2 (08:56→22:16)
[2020-01-13] MEDS: Lisinopril 20 MG Tablet PO ×2 (08:56→22:16)
[2020-01-13] MEDS: HEPARIN/D5w 25,000 UNITS 25,000 UNITS/250 ML IV.SOLN. 21 UNITS IV ×2 (09:02→20:48)
--- NOTE | 2020-01-13 11:04 | PN_ITS ---
<Tiffany Hannah MARKETING PERFORMANCE ANALYST - Last Filed: 01/13/20 11:10> Patient Problems: Active and Suspected Problems Atrial fibrillation (Acute) Elevated troponin (Acute) Atrial fibrillation/flutter (Acute) Subjective: Patient seen and examined. Reports mild lightheadedness with ambulation to the restroom last night. No further episodes since. Denies palpitations, shortness of breath. Amenable to heart cath in a.m. - Physical Exam Vitals/I&O's: Vital Signs Temp Pulse Resp BP Pulse Ox 98.4 F 78 18 116/65 96 01/13/20 08:52 01/13/20 08:56 01/13/20 08:52 01/13/20 08:56 01/13/20 08:52 Oxygen Delivery Method Room Air Weight: 411 lb Body Mass Index (BMI) 48.7 Intake and Output for Last 24 Hours 01/11/20 01/12/20 01/13/20 23:59 23:59 23:59 Intake Total 1133.08 / 1508.08 1342.68 / 1342.68 316.65 / 316.65 Balance 1133.08 / 1508.08 1342.68 / 1342.68 316.65 / 316.65 General: Alert, Oriented x3, Cooperative HEENT: Atraumatic, PERRLA, EOMI, Normocephalic Neck: Supple, No JVD, Negative Carotid Bruits Lungs: Clear to auscultation, Normal air movement Cardiovascular: Regular rate, No murmurs Abdomen: Bowel Sounds Present, Soft, Non Tender, Obese Extremities: No clubbing, No cyanosis, No edema, Capillary Refill Less than 3 Seconds Skin: No rashes, No breakdown Musculoskeletal: No Tenderness to Palpation of Joints or Extremities Neurological: Cranial nerves II-XII grossly intact, Neuro grossly intact Psych/Mental Status: Normal Affect, Appropriate Microbiology Past 72 Hours 01/11/20 12:55 Blood Culture (Wb) - Anticubital Right Blood Culture - Preliminary No growth in 48 hours. 01/11/20 10:25 Blood Culture (Wb) - Anticubital Right Blood Culture - Preliminary No growth in 48 hours. 01/11/20 18:05 Mucosa - Nose - Final 01/11/20 10:46 Mucosa - Nasopharyngeal Respiratory Panel (PCR) - Final Laboratory Results 01/12/20 18:59: APTT 34.7 11/08/20 02:30: Sodium 139, Potassium 3.3 L, Chloride 109 H, Carbon Dioxide 25.0, Anion Gap 5, BUN 13, Creatinine 1.05, Estim Creat Clear Calc 114.32, Est GFR (MDRD) Af Amer 99, Est GFR (MDRD) Non-Af 82, BUN/Creatinine Ratio 12.4, Glucose 108 H, Calcium 8.5 01/13/20 02:30: APTT 56.9 H 01/13/20 08:22: APTT 57.0 H Current Medications Acetaminophen (Acetaminophen 325 Mg Tablet) 650 mg PO Q6H PRN PRN PRN Reason: Pain Score 1-10/Temp > 100.7 F Al Hydroxide/Mg Hydroxide (Mag Hydrox/Al Hydrox/Simeth 30 Ml Udc) 30 ml PO Q6H PRN PRN PRN Reason: Gastric Burning Albuterol Sulfate (Albuterol 2.5 Mg/3 Ml Vial.Neb.) 2.5 mg INHALATION Q2H PRN PRN PRN Reason: SOB/Wheezing Aspirin (Aspirin 81 Mg Tab.Chew) 81 mg PO DAILY@0800 [facility] Last Admin: 01/13/20 08:55 Dose: 81 mg Documented by: Enalaprilat (Enalaprilat 1.25 Mg/Ml Vial) 0.625 mg IV Q6H PRN PRN Reason: SBP> 160 Heparin Sodium (Porcine) (Heparin Injection (Vial) 5,000 Unit/Ml Vial) 0 unit IV UD PRN; Protocol PRN Reason: dose adjustment Last Admin: 01/12/20 20:11 Dose: 3,000 unit Documented by: Heparin Sodium/Dextrose () 25,000 units in 250 mls @ 22 mls/hr IV .[id number] [facility]; Protocol Last Admin: 01/13/20 09:02 Dose: 2,100 units/hr, 21 mls/hr Documented by: Ibuprofen (Ibuprofen 400 Mg Tablet) 400 mg PO Q4H PRN PRN PRN Reason: Pain Score 1-10/Temp > 100.7 F Lisinopril (Lisinopril 20 Mg Tablet) 20 mg PO BID [facility] Last Admin: 01/13/20 08:56 Dose: 20 mg Documented by: Melatonin (Melatonin 3 Mg Tablet) 3 mg PO QHS PRN PRN PRN Reason: INSOMNIA Metoprolol Tartrate (Metoprolol Tartrate 50 Mg Tablet) 50 mg PO BID [facility] Last Admin: 01/13/20 08:56 Dose: 50 mg Documented by: Ondansetron HCl (Ondansetron 4 Mg/2 Ml Vial) 4 mg IV Q8H PRN PRN PRN Reason: NAUSEA/VOMITING Senna/Docusate Sodium (Senna/Docusate Sodium 1 Tablet) 2 tablet PO BID PRN PRN PRN Reason: Constipation Sodium Chloride (0.9% Saline Lock 10 Ml Syringe) 10 - 40 ml IV UD PRN PRN Reason: SALINE FLUSH Trimethoprim/Sulfamethoxazole (Smz/Tmp Ds Tablet) 2 tablet PO BID [facility] Last Admin: 01/13/20 08:55 Dose: 2 tablet Documented by: Zinc Sulfate (Zinc Sulfate (50mg Elemental) 220 Mg Capsule) 220 mg PO DAILY [facility] Last Admin: 01/13/20 08:57 Dose: 220 mg Documented by: Medical Necessity - Tobacco Use Smoking Status: Never smoker Tobacco Use: Non-smoker Assessment/Plan All Active Problems Atrial fibrillation (Acute) Elevated troponin (Acute) Atrial fibrillation/flutter (Acute) 1. New onset atrial fibrillation-previously on Cardizem drip, converted to sinus rhythm. Continue metoprolol 50 mg twice daily. Heparin drip. Plan for cath on Tuesday due to elevated troponin and systolic dysfunction. Echocardiogram demonstrates an EF of 30%, moderate segmental systolic dysfunctio n, mild mitral valve insufficiency, mild tricuspid valve insufficiency, RVSP estimated to be 37 mmHg. 2. Indeterminate troponin-cardiology following, plan per above. 3. Moderate systolic dysfunction-echocardiogram as noted above. Heart cath in a.m. for further evaluation. Continue medical management 4. Infected sebaceous cyst-posterior skull, neck. On Bactrim. Will need outpatient follow-up with Dr. Santos for removal who has performed I&D in the past. 5. Hypertension-stable, continue lisinopril. HCTZ on hold. 6. CHRISTOPHER-continue home CPAP regimen. 7. Alcohol dependence-encouraged cessation. 8. Morbid obesity-encouraged diet and lifestyle modifications. 9. Mild hypokalemia-replace per protocol. DVT prophylaxis-Heparin drip This patient was seen by NESSA Denson under the supervision of Dr. Orlando. <Ariadna Orlando - Last Filed: 01/13/20 13:19> - Physical Exam Vitals/I&O's: Vital Signs Temp Pulse Resp BP Pulse Ox 98.4 F 78 18 116/65 96 01/13/20 08:52 01/13/20 08:56 01/13/20 08:52 01/13/20 08:56 01/13/20 08:52 Oxygen Delivery Method Room Air Weight: 411 lb Body Mass Index (BMI) 48.7 Intake and Output for Last 24 Hours 01/11/20 01/12/20 01/13/20 23:59 23:59 23:59 Intake Total 1133.08 / 1508.08 1342.68 / 1342.68 316.65 / 316.65 Balance 1133.08 / 1508.08 1342.68 / 1342.68 316.65 / 316.65 Microbiology Past 72 Hours 01/11/20 12:55 Blood Culture (Wb) - Anticubital Right Blood Culture - Preliminary No growth in 48 hours. 01/11/20 10:25 Blood Culture (Wb) - Anticubital Right Blood Culture - Preliminary No growth in 48 hours. 01/11/20 18:05 Mucosa - Nose - Final 01/11/20 10:46 Mucosa - Nasopharyngeal Respiratory Panel (PCR) - Final Laboratory Results 01/12/20 18:59: APTT 34.7 01/13/20 02:30: Sodium 139, Potassium 3.3 L, Chloride 109 H, Carbon Dioxide 25.0, Anion Gap 5, BUN 13, Creatinine 1.05, Estim Creat Clear Calc 114.32, Est GFR (MDRD) Af Amer 99, Est GFR (MDRD) Non-Af 82, BUN/Creatinine Ratio 12.4, Glucose 108 H, Calcium 8.5 01/13/20 02:30: APTT 56.9 H 01/13/20 02:30: Magnesium 2.0 01/13/20 08:22: APTT 57.0 H 01/13/20 12:00: Urine Opiates Screen NEGATIVE, Urine Methadone Screen NEGATIVE, Ur Barbiturates Screen NEGATIVE, Ur Phencyclidine Scrn NEGATIVE, Ur Amphetamines Screen NEGATIVE, U Methamphetamin-MDMA NEGATIVE, U Benzodiazepines Scrn NEGATIVE, Urine Cocaine Screen NEGATIVE, U Cannabinoids Screen NEGATIVE, Ur Drug Screen Comment Current Medications Acetaminophen (Acetaminophen 325 Mg Tablet) 650 mg PO Q6H PRN PRN PRN Reason: Pain Score 1-10/Temp > 100.7 F Al Hydroxide/Mg Hydroxide (Mag Hydrox/Al Hydrox/Simeth 30 Ml Udc) 30 ml PO Q6H PRN PRN PRN Reason: Gastric Burning Albuterol Sulfate (Albuterol 2.5 Mg/3 Ml Vial.Neb.) 2.5 mg INHALATION Q2H PRN PRN PRN Reason: SOB/Wheezing Aspirin (Aspirin 81 Mg Tab.Chew) 81 mg PO DAILY@0800 [facility] Last Admin: 01/13/20 08:55 Dose: 81 mg Documented by: Enalaprilat (Enalaprilat 1.25 Mg/Ml Vial) 0.625 mg IV Q6H PRN PRN Reason: SBP> 160 Heparin Sodium (Porcine) (Heparin Injection (Vial) 5,000 Unit/Ml Vial) 0 unit IV UD PRN; Protocol PRN Reason: dose adjustment Last Admin: 01/12/20 20:11 Dose: 3,000 unit Documented by: Heparin Sodium/Dextrose () 25,000 units in 250 mls @ 22 mls/hr IV .[id number] [facility]; Protocol Last Admin: 01/13/20 09:02 Dose: 2,100 units/hr, 21 mls/hr Documented by: Sodium Chloride () 1,000 mls @ 15 mls/hr IV .Q48H [facility] Ibuprofen (Ibuprofen 400 Mg Tablet) 400 mg PO Q4H PRN PRN PRN Reason: Pain Score 1-10/Temp > 100.7 F Lisinopril (Lisinopril 20 Mg Tablet) 20 mg PO BID [facility] Last Admin: 01/13/20 08:56 Dose: 20 mg Documented by: Melatonin (Melatonin 3 Mg Tablet) 3 mg PO QHS PRN PRN PRN Reason: INSOMNIA Metoprolol Tartrate (Metoprolol Tartrate 50 Mg Tablet) 50 mg PO BID [facility] Last Admin: 01/13/20 08:56 Dose: 50 mg Documented by: Ondansetron HCl (Ondansetron 4 Mg/2 Ml Vial) 4 mg IV Q8H PRN PRN PRN Reason: NAUSEA/VOMITING Senna/Docusate Sodium (Senna/Docusate Sodium 1 Tablet) 2 tablet PO BID PRN PRN PRN Reason: Constipation Sodium Chloride (0.9% Saline Lock 10 Ml Syringe) 10 - 40 ml IV UD PRN PRN Reason: SALINE FLUSH Trimethoprim/Sulfamethoxazole (Smz/Tmp Ds Tablet) 2 tablet PO BID [facility] Last Admin: 01/13/20 08:55 Dose: 2 tablet Documented by: Zinc Sulfate (Zinc Sulfate (50mg Elemental) 220 Mg Capsule) 220 mg PO DAILY [facility] Last Admin: 01/13/20 08:57 Dose: 220 mg Documented by: Assessment/Plan Patient seen by NESSA Denson under my supervision. Patient seen and examined. He has no complaints this morning. Review of signs otherwise negative. He is for cardiac cath tomorrow. O/E; Vital Signs Temp Pulse Resp BP Pulse Ox 98.4 F 78 18 116/65 96 01/13/20 08:52 01/13/20 08:56 01/13/20 08:52 01/13/20 08:56 01/13/20 08:52 General: Alert, Oriented x3, Cooperative HEENT: Atraumatic, PERRLA, EOMI, Normocephalic Neck: Supple, No JVD, Negative Carotid Bruits Lungs: Clear to auscultation, Normal air movement Cardiovascular: Regular rate and rhythm, no murmurs; afib converted to sinus rhythm. Abdomen: Bowel Sounds Present, Soft, Non Tender, Non-Distended, Obese Extremities: No clubbing, No cyanosis, No edema Skin: No rashes, No breakdown, - - Sebaceous cyst posterior scalp Musculoskeletal: No Tenderness to Palpation of Joints or Extremities Neurological: Cranial nerves II-XII grossly intact, Neuro grossly intact Psych/Mental Status: Normal Affect, Appropriate Plan is to continue patient on metoprolol and heparin drip. For cardiac cath on Tuesday. Potassium still remains 3.3 today and will be corrected. For cardiac cath tomorrow. Rest as per NESSA Denson's notes which I have reviewed and endorsed. Inpatient E&M: 10812 Subs Hosp L2
--- NOTE | 2020-01-13 11:29 | PN.CARD_ITS ---
Subjectve: The patient is awake and alert. He denies any recurrent palpitations. He states yesterday evening while having a bowel movement he felt transiently lightheaded. There is been no new chest discomfort or difficulty breathing. Objective: Vital Signs Temp Pulse Resp BP Pulse Ox 98.4 F 78 18 116/65 96 01/13/20 08:52 01/13/20 08:56 01/13/20 08:52 01/13/20 08:56 01/13/20 08:52 Oxygen Delivery Method Room Air Weight: 411 lb Body Mass Index (BMI) 48.7 Intake and Output for Last 24 Hours 01/11/20 01/12/20 01/13/20 23:59 23:59 23:59 Intake Total 1133.08 / 1508.08 1342.68 / 1342.68 316.65 / 316.65 Balance 1133.08 / 1508.08 1342.68 / 1342.68 316.65 / 316.65 General: Awake, Alert, Oriented x 3, Cooperative, No Acute Distress, Obese HEENT: Atraumatic, Normocephalic, PERRL, EOMI, Sclera Non Icteric Neck: Supple, Good ROM, No JVD Lungs: Clear to auscultation Cardiovascular: Regular Rhythm, Normal S1, Normal S2 Vascular: Normal Radial Pulses Abdomen: Bowel Sounds Present, Soft Extremities: No edema Neurological: No Focal Motor or Sensory Deficit Psych/Mental Status: Appropriate 01/12/20 18:59: APTT 34.7 01/13/20 02:30: Sodium 139, Potassium 3.3 L, Chloride 109 H, Carbon Dioxide 25.0, Anion Gap 5, BUN 13, Creatinine 1.05, Est GFR (MDRD) Af Amer 99, Est GFR (MDRD) Non-Af 82, BUN/Creatinine Ratio 12.4, Glucose 108 H, Calcium 8.5 01/13/20 02:30: APTT 56.9 H 01/13/20 08:22: APTT 57.0 H Rhythm: Sinus rhythm Echocardiogram: Interpretation Summary The study was technically difficult. Contrast injection was performed. Moderately dilated left ventricle. Moderate segmental systolic dysfunction (see wall motion). The estimated ejection fraction is 30 %. The left atrium is mildly enlarged. Mild (1+) mitral valve insufficiency. Mild tricuspid valve insufficiency. Mildly dilated aortic root. Right ventricular systolic pressure estimated to be 37 mmHg. There is evidence of diastolic dysfunction. Medical Necessity - Tobacco Use Smoking Status: Never smoker Tobacco Use: Non-smoker Assessment/Plan 1. Atrial fibrillation/flutter The patient presented with findings on ECG compatible with atrial flutter. On his remedy developer there have been questions of paroxysmal atrial fibrillation. He has been treated with rate control therapy, antiarrhythmic therapy, and anticoagulant therapy. He has had conversion to sinus rhythm. He is now on oral rate limiting medication. Eventually he will be converted from his IV anticoagulant therapy to an oral anticoagulant. He has undergone evaluation with a transthoracic echocardiogram. The results are as noted. It does raise concern of an underlying cardiomyopathy. At the current time the question is whether this is related to his atrial dysrhythmia/tachycardia dysrhythmia or an underlying CAD mediated process. Thus he has been recommended for further evaluation with diagnostic cardiac catheterization. The procedure and risks were discussed with him. He was agreeable to this approach. 2. Abnormal cardiac enzymes He does have abnormal troponin I levels. This may be secondary to his atrial dysrhythmia with rapid ventricular response and a type II response. However un derlying CAD has not necessarily been excluded. Based upon his concerning symptoms and his objective findings it would not be unreasonable to consider him for further definitive evaluation with diagnostic cardiac catheterization. 3. Hypertension His blood pressure will be followed. He may need readjustment of his antihypertensive therapy. As part of his antihypertensive therapy he was on HCTZ. This may contribute to why his potassium level is somewhat low. He will be receiving potassium supplements. His potassium level can be rechecked. 4. CHRISTOPHER He does have a report of CHRISTOPHER and uses a CPAP therapy. This may be a contributing factor to his atrial dysrhythmia. This note was generated using a voice recognition system and there may be incorrect words, spelling or punctuation that were not noted when reviewing the office note prior to saving. Procedure Criteria Procedure Type: Elective COVID Risk Discussion: The surgeon/proceduralist and patient have discussed in detail the risk of exposure to and/or potential harm posed by the COVID-19 virus with having a surgery/procedure at this time versus the risk of delaying the surgery/procedure. It is not possible to know either the risk of delaying the surgery or procedure or chance of getting an infection with perfect accuracy, but a joint decision was made between the patient and the surgeon/proceduralist to proceed at this time with the scheduled surgery/procedure as indicated on the consent form.
[2020-01-13 12:22] LABS: Amphetamine Urine VISTA NEGATIVE (<1000 ng/mL); Barbiturate Urine VISTA NEGATIVE (< 200 ng/mL); Benzodiazepine Urine VISTA NEGATIVE (< 200 ng/mL); Cocaine Urine VISTA NEGATIVE (< 300 ng/mL); Ecstacy Urine VISTA NEGATIVE (< 500 ng/mL); Methadone Urine VISTA NEGATIVE (< 300 ng/mL); PCP Urine VISTA NEGATIVE (< 25 ng/mL); THC Urine VISTA NEGATIVE (< 50 ng/mL); Vista UDS pH Range 7
[2020-01-14] VITALS (10 sets, daily range): BP systolic 112–142; BP diastolic 64–86; PULSE 70–84; RESP 16–24; TEMP 36.3–36.6; O2SAT 94–100
--- NOTE | 2020-01-14 00:26 | CPS ---
Patient's CPAP increased to 13. This is his home setting per patient.
--- NOTE | 2020-01-14 01:04 | NURSING ---
Heparin gtt on hold per Dr. Glass for potential heart cath 01/13. WILLIAM Newberry
--- NOTE | 2020-01-14 05:55 | EKG12_ITS ---
Test Reason : CONVERSION TO SINUS Blood Pressure : / mmHG Vent. Rate : 076 BPM Atrial Rate : 076 BPM P-R Int : 172 ms QRS Dur : 088 ms QT Int : 448 ms P-R-T Axes : 059 211 037 degrees QTc Int : 504 ms Sinus rhythm with occasional Premature ventricular complexes Prolonged QT Abnormal ECG When compared with ECG of 11-JAN-2020 09:36, MANUAL COMPARISON REQUIRED, DATA IS UNCONFIRMED Confirmed by PEPE NAM, BRETT ([id number]), advertising editor JOSEPHINE COHEN ([id number]) on 01/15/2020 11:18:18 AM Referred By: YURI Confirmed By:BRETT CANTU MD
[2020-01-14] MEDS: Lisinopril 20 MG Tablet PO (06:09)
[2020-01-14] MEDS: 0.9% Normal Saline 1,000 ML 15 ML IV (06:09)
[2020-01-14] MEDS: Aspirin 81 MG TAB.CHEW PO (06:10)
[2020-01-14] MEDS: Metoprolol Tartrate 50 MG Tablet PO (06:10)
[2020-01-14 06:16] LABS: Hematocrit 42.1 % (40-54); Hemoglobin 13.4 g/dL (13.0-16.5); Mean Corp Hgb Conc 31.8 g/dL (32-36); Mean Corpuscular Hgb 28.8 pg (27.0-32.0); Mean Corpuscular Volume 90.3 fL (80-94); Mean Platelet Vol. 10.9 fl (6.2-12.0); Platelet Count 198 K/mm3 (150-450); RBC Distribution Width CV 14.2 % (11.6-14.6); RBC Distribution Width SD 46.4 fl (35.1-43.9); Red Blood Count 4.66 M/mm3 (4.6-6.2); White Blood Count 6.2 K/mm3 (4.4-11.0)
[2020-01-14 06:33] LABS: Partial Thromboplast Time 26.2 Seconds (24.1-36.2)
[2020-01-14 06:40] LABS: Anion Gap 6 (5-15); BUN 12 mg/dL (7-18); BUN/Creat Ratio 11.1 RATIO (10-20); Calcium,Total 8.8 mg/dL (8.5-10.1); Chloride 106 mmol/L (98-107); Creatinine, Serum 1.08 mg/dL (0.70-1.30); EST Glomerular Filtration Rate 79 mL/min (>60); Est Glom Filt Rate - Afr Amer 96 mL/min (>60); Estimated Creatinine Clearance 111.15 ml/min; Glucose 86 mg/dL (74-106); Potassium 3.6 mmol/L (3.5-5.1); Sodium Level 139 mmol/L (136-145)
--- NOTE | 2020-01-14 11:51 | PCM.DC ---
- Discharge Diagnoses Current Active Problems: Current Active and Chronic Problems 1. New onset atrial fibrillation 2. Indeterminate troponin 3. Moderate systolic dysfunction 4. Infected sebaceous cyst 5. Hypertension 6. CHRISTOPHER 7. Positive covid-19 You will use the following diet at home:: Cardiac Discharge Activity: Return to Normal Activity Call your doctor if you observe: Shortness of breath, Dizziness, Fainting spells, Chest pain Allergies/Adverse Reactions: Allergies No Known Allergies Allergy (Verified 01/11/20 09:22) Medications to take at Discharge Lisinopril 40 mg PO QHS 01/11/20 [place]-3/Dha/Epa/Fish Oil [[place] 3 500 Softgel] 1 cap PO DAILY 01/11/20 Zinc Sulfate (50mg elemental) [Zinc Sulfate] 220 mg PO DAILY 01/11/20 Aspirin [Aspirin, Baby] 81 mg PO DAILY@0800 #30 tab.chew 01/14/20 Metoprolol Tartrate [Lopressor (beta cl)] 50 mg PO BID #60 tab 01/14/20 Rivaroxaban [Xarelto] 20 mg PO DAILY #30 tab 01/14/20 Smz/Tmp Ds [Bactrim Ds] 2 tab PO BID #20 tab 01/14/20 The following prescriptions were given: Aspirin [Aspirin, Baby] 81 mg PO DAILY@0800 #30 tab.chew Transmission Status: Pending to [facility] #30 Smz/Tmp Ds [Bactrim Ds] 2 tab PO BID #20 tab Transmission Status: Pending to [facility] #30 Metoprolol Tartrate [Lopressor (beta cl)] 50 mg PO BID #60 tab Transmission Status: Pending to [facility] #30 Rivaroxaban [Xarelto] 20 mg PO DAILY #30 tab Transmission Status: Pending to [facility] #30 Primary Care Physician: [facility] Neli Jimenez [Primary Care Provider] - Please follow up with your Primary Care Physician in: 1 Week Test Results: Test results from this visit will be discussed in further detail at your follow-up appointment, if applicable. Please Follow Up With: Lc Glass MD When: Office to call you with heart cath date/time Please Follow Up With: Odalys Santos MD When: Call for follow up for sebaceous cyst Proposed Discharge Date: 01/14/20
--- NOTE | 2020-01-14 12:22 | PHA.DC.MR ---
Pharmacy Service has performed discharge medication reconciliation for this patient. Patient currently in isolation precautions, medrec completed. Home Medications Lisinopril 40 mg PO QHS 01/11/20 [place]-3/Dha/Epa/Fish Oil [[place] 3 500 Softgel] 1 cap PO DAILY 01/11/20 Zinc Sulfate (50mg elemental) [Zinc Sulfate] 220 mg PO DAILY 01/11/20 Aspirin [Aspirin, Baby] 81 mg PO DAILY@0800 #30 tab.chew 01/14/20 Metoprolol Tartrate [Lopressor (beta cl)] 50 mg PO BID #60 tab 01/14/20 Smz/Tmp Ds [Bactrim Ds] 2 tab PO BID #20 tab 01/14/20 The patient's discharge medication list was reviewed for discrepancies and discrepancies were resolved.
--- NOTE | 2020-01-14 12:28 | DS.PCM_ITS ---
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 New onset atrial fibrillation 2. Indeterminate troponin 3. Moderate systolic dysfunction 4. Infected sebaceous cyst 5. Hypertension 6. CHRISTOPHER 7. Alcohol dependence 8. Morbid obesity 9. Mild hypokalemia 10. COVID-19 positive - Secondary Discharge Diagnosis Chronic Problems: Chronic Problems Infected sebaceous cyst (Chronic) CHRISTOPHER on CPAP (Chronic) Wears CPAP at HS with 14 cmH2O HTN, goal below 130/80 (Chronic) HTN (hypertension) (Chronic) Hospital Course and Treatment Imaging Results: Diagnostic Data Chest X-Ray 01/11/20 11:00 IMPRESSION: Hyperinflation. Electronically Signed: Alphonso Kapil, at 12:30 EST , Service support , Dr. Glass- Cardiology Operations: None Procedures: 2-D Echocardiogram Summary of Care Provided: The patient is a 44 year old M admitted 01/11/2020 due to palpitations, lightheadedness and shortness of breath. 1. New onset atrial fibrillation-initially on Cardizem drip, converted to sinus rhythm. Continue metoprolol 50 mg twice daily. Patient has remained in sinus rhythm. Echocardiogram demonstrates an EF of 30%, moderate segmental systolic dysfunction, mild mitral valve insufficiency, mild tricuspid valve insufficiency, RVSP estimated to be 37 mmHg. Initially planned on a heart cath however patient was found to be Covid positive. Patient will complete quarantine per recommendations and then return for outpatient heart cath. Initiated on Xarelto 20 mg daily. Cardiology will contact patient with heart cath arrangements and notify him when to stop Xarelto prior to procedure. 2. Indeterminate troponin-plan per above. 3. Moderate systolic dysfunction-echocardiogram as noted above. Continue medical management. Outpatient cath as noted above. 4. Infected sebaceous cyst-posterior skull, neck. Continue Bactrim at discharge to complete course. Will need outpatient follow-up with Dr. Santos for removal who has performed I&D in the past. 5. Hypertension-stable, continue lisinopril. HCTZ discontinued. Metoprolol added. 6. CHRISTOPHER-continue home CPAP regimen. 7. Alcohol dependence-encouraged cessation. 8. Morbid obesity-encouraged diet and lifestyle modifications. 9. Mild hypokalemia-replace per protocol. 10. COVID-19 positive-ID recommended 14-day quarantine from test date which is 01/11/2020. Patient is asymptomatic. Discussed extensively precautions and quarantine protocol. General: Alert, Oriented x3, Cooperative HEENT: Atraumatic, PERRLA, EOMI, Normocephalic Neck: Supple, No JVD, Negative Carotid Bruits Lungs: Clear to auscultation, Normal air movement Cardiovascular: Regular rate, No murmurs Abdomen: Bowel Sounds Present, Soft, Non Tender, Obese Extremities: No clubbing, No cyanosis, No edema, Capillary Refill Less than 3 Seconds Skin: No rashes, No breakdown Musculoskeletal: No Tenderness to Palpation of Joints or Extremities Neurological: Cranial nerves II-XII grossly intact, Neuro grossly intact Psych/Mental Status: Normal Affect, Appropriate Patient seen and examined prior to discharge. Physical assessment as noted above. Patient is stable for discharge with follow up recommendations as noted above. This patient was seen by NESSA Denson under the supervision of Dr. Marino. Patient Problems: Active and Suspected Problems Atrial fibrillation (Acute) Elevated troponin (Acute) Atrial fibrillation/flutter (Acute) - Physical Exam Vitals/I&O's: Vital Signs Temp Pulse Resp BP Pulse Ox 97.3 F L 84 24 H 112/73 94 01/14/20 09:43 01/14/20 09:43 01/14/20 09:43 01/14/20 09:43 01/14/20 12:00 Oxygen Delivery Method Room Air Weight: 410 lb 15.066 oz Body Mass Index (BMI) 48.7 Intake and Output for Last 24 Hours 01/12/20 01/13/20 01/14/20 23:59 23:59 23:59 Intake Total 1342.68 / 1342.68 1523.75 / 1523.75 88.2 / 88.2 Balance 1342.68 / 1342.68 1523.75 / 1523.75 88.2 / 88.2 Microbiology Past 72 Hours 01/11/20 12:55 Blood Culture (Wb) - Anticubital Right Blood Culture - Preliminary No growth in 48 hours. 01/11/20 10:25 Blood Culture (Wb) - Anticubital Right Blood Culture - Preliminary No growth in 48 hours. 01/11/20 18:05 Mucosa - Nose - Final 01/11/20 10:46 Mucosa - Nasopharyngeal Respiratory Panel (PCR) - Final Laboratory Results 01/11/20 10:15: COVID-19 (TAI) Detected H 01/13/20 16:15: COVID-19 (TAI) Not Detected 01/14/20 06:10: Sodium 139, Potassium 3.6, Chloride 106, Carbon Dioxide 27.0, Anion Gap 6, BUN 12, Creatinine 1.08, Estim Creat Clear Calc 111.15, Est GFR (MDRD) Af Amer 96, Est GFR (MDRD) Non-Af 79, BUN/Creatinine Ratio 11.1, Glucose 86, Calcium 8.8 01/14/20 06:10: APTT 26.2 01/14/20 06:10: WBC 6.2, RBC 4.66, Hgb 13.4, Hct 42.1, MCV 90.3, MCH 28.8, MCHC 31.8 L, RDW Std Deviation 46.4 H, RDW Coeff of Steve 14.2, Plt Count 198, MPV 10.9 Current Medications Acetaminophen (Acetaminophen 325 Mg Tablet) 650 mg PO Q6H PRN PRN PRN Reason: Pain Score 1-10/Temp > 100.7 F Al Hydroxide/Mg Hydroxide (Mag Hydrox/Al Hydrox/Simeth 30 Ml Udc) 30 ml PO Q6H PRN PRN PRN Reason: Gastric Burning Albuterol Sulfate (Albuterol 2.5 Mg/3 Ml Vial.Neb.) 2.5 mg INHALATION Q2H PRN PRN PRN Reason: SOB/Wheezing Aspirin (Aspirin 81 Mg Tab.Chew) 81 mg PO DAILY@0800 [facility] Last Admin: 01/14/20 06:10 Dose: 81 mg Documented by: Enalaprilat (Enalaprilat 1.25 Mg/Ml Vial) 0.625 mg IV Q6H PRN PRN Reason: SBP> 160 Heparin Sodium (Porcine) (Heparin Injection (Vial) 5,000 Unit/Ml Vial) 0 unit IV UD PRN; Protocol PRN Reason: dose adjustment Last Admin: 01/12/20 20:11 Dose: 3,000 unit Documented by: Heparin Sodium/Dextrose () 25,000 units in 250 mls @ 22 mls/hr IV .[id number] [facility]; Protocol Last Titration: 01/14/20 01:00 Dose: 0 units/hr, 0 mls/hr Documented by: Sodium Chloride () 1,000 mls @ 15 mls/hr IV .Q48H [facility] Last Admin: 01/14/20 06:09 Dose: 15 mls/hr Documented by: Ibuprofen (Ibuprofen 400 Mg Tablet) 400 mg PO Q4H PRN PRN PRN Reason: Pain Score 1-10/Temp > 100.7 F Lisinopril (Lisinopril 20 Mg Tablet) 20 mg PO BID [facility] Last Admin: 01/14/20 06:09 Dose: 20 mg Documented by: Melatonin (Melatonin 3 Mg Tablet) 3 mg PO QHS PRN PRN PRN Reason: INSOMNIA Metoprolol Tartrate (Metoprolol Tartrate 50 Mg Tablet) 50 mg PO BID [facility] Last Admin: 01/14/20 06:10 Dose: 50 mg Documented by: Ondansetron HCl (Ondansetron 4 Mg/2 Ml Vial) 4 mg IV Q8H PRN PRN PRN Reason: NAUSEA/VOMITING Senna/Docusate Sodium (Senna/Docusate Sodium 1 Tablet) 2 tablet PO BID PRN PRN PRN Reason: Constipation Sodium Chloride (0.9% Saline Lock 10 Ml Syringe) 10 - 40 ml IV UD PRN PRN Reason: SALINE FLUSH Trimethoprim/Sulfamethoxazole (Smz/Tmp Ds Tablet) 2 tablet PO BID [facility] Last Admin: 01/13/20 22:15 Dose: 2 tablet Documented by: Zinc Sulfate (Zinc Sulfate (50mg Elemental) 220 Mg Capsule) 220 mg PO DAILY [facility] Last Admin: 01/13/20 08:57 Dose: 220 mg Documented by: Discharge Diet: Low fat/ Low Cholesterol Discharge Activity: Return to Normal Activity Call your doctor if you observe: Shortness of breath, Dizziness, Fainting spells, Chest pain Home Medications: Medications to take at Discharge Lisinopril 40 mg PO QHS 01/11/20 [place]-3/Dha/Epa/Fish Oil [[place] 3 500 Softgel] 1 cap PO DAILY 01/11/20 Zinc Sulfate (50mg elemental) [Zinc Sulfate] 220 mg PO DAILY 01/11/20 Aspirin [Aspirin, Baby] 81 mg PO DAILY@0800 #30 tab.chew 01/14/20 Metoprolol Tartrate [Lopressor (beta cl)] 50 mg PO BID #60 tab 01/14/20 Rivaroxaban [Xarelto] 20 mg PO DAILY #30 tab 01/14/20 Smz/Tmp Ds [Bactrim Ds] 2 tab PO BID #20 tab 01/14/20 Following Prescriptions Were Given to Patient: Aspirin [Aspirin, Baby] 81 mg PO DAILY@0800 #30 tab.chew Transmission Status: Received by [facility] Smz/Tmp Ds [Bactrim Ds] 2 tab PO BID #20 tab Transmission Status: Received by [facility] Metoprolol Tartrate [Lopressor (beta cl)] 50 mg PO BID #60 tab Transmission Status: Received by [facility] Rivaroxaban [Xarelto] 20 mg PO DAILY #30 tab Transmission Status: Received by [facility] - Please follow up with your Primary Care Physician in: 1 Week Please Follow Up With: Lc Glass MD When: Office to call you with heart cath date/time Please Follow Up With: Odalys Santos MD When: Call for follow up for sebaceous cyst Disposition: Home Minutes spent on discharge:: 35 Patient Condition:: Stable Medical Necessity - Tobacco Use Smoking Status: Never smoker Tobacco Use: Non-smoker Meaningful Use Info Meaningful Use Diagnoses (Choose all that apply): None applicable <Marcela Marino - Last Filed: 01/14/20 14:38> Discharge Date and Diagnosis - Primary Discharge Diagnosis Acute Problems: Active Problems Atrial fibrillation (Acute) Elevated troponin (Acute) Atrial fibrillation/flutter (Acute) - Secondary Discharge Diagnosis Chronic Problems: Chronic Problems Infected sebaceous cyst (Chronic) CHRISTOPHER on CPAP (Chronic) Wears CPAP at HS with 14 cmH2O HTN, goal below 130/80 (Chronic) HTN (hypertension) (Chronic) Hospital Course and Treatment Summary of Care Provided: I agree with the above and the following is a representation of my own independent history and physical exam Mr Patricia is a 44 year old AAM with a PMH of HTN, CHRISTOPHER, infected sebaceous cyst and MO who presented to the ED at [facility] on 01/11/2020 with palpitations, lightheadedness and SOB. He states that he started to have sx on Tuesday while sitting at the bar drinking a Daiquiri and he admits that he has had it ever since then. He came in because he had and episode where he felt like he was going to pass out. In the ED he was found to have a HR of 150+ and EKG showed A- fib. He was given Cardizem initially and Metoprolol and his HR did come down but he remained > 100 and he was started on amiodarone. He was afebrile, RR is 16- 20 and he was satting 97-99% on RA. Lab work was overall unimpressive except for a troponin of 0.088.His D-dimer was WNL. He also has an infected Sebacceous cyst on the back of his head which he has been dealing with for a good part of 2019. He had an I&D by derm but the sac was not removed. It the recurred but ruptured spontaneously and now occurred for the 3rd time. He states that this happens after he gets his haircut. He was on Keflex but it was not improving. He admitted that he drinks about 2 doubles of vodka and 3 12 oz beers every other day but can go long periods of time without drinking and never has a problem. He was admitted to PCU after and initial COVID test was neg but a sent out was found to be + with a repeat rapid that was negative today. Per ID recommenda tions the send out is more accurate and the pt will self quarantine from the time of the + test (01/10) for 14 days. He has been asymptomatic throughout his stay with regards to this. An ECHO revealed an EF of 30% with global hypokinesis and diastolic dysfunction, there was mild LAE and his RVSP was 37 mmHg. He converted to NSR and is to be d/c on Metoprolol 50 mg BID and NOAC. He will need a LHC but this was delayed 2/2 COVID-19 test positivity and will be done after his quarantine is complete. He was continued on Bactrim for his infected sebaceous cyst and is to f/u with ID. D/C time > 31 min - Physical Exam Vitals/I&O's: Vital Signs Temp Pulse Resp BP Pulse Ox 97.3 F L 78 16 142/85 H 98 01/14/20 13:59 01/14/20 13:59 01/14/20 13:59 01/14/20 13:59 01/14/20 13:59 Oxygen Delivery Method Room Air Weight: 186.4 kg Body Mass Index (BMI) 48.7 Intake and Output for Last 24 Hours 01/12/20 01/13/20 01/14/20 23:59 23:59 23:59 Intake Total 1342.68 / 1342.68 1523.75 / 1523.75 210.95 / 210.95 Balance 1342.68 / 1342.68 1523.75 / 1523.75 210.95 / 210.95 General: Alert, Oriented x3, Cooperative, No apparent distress, Well developed, Well nourished, - - MO AAM sitting up in a chair watching TV, looks well HEENT: Atraumatic, Normocephalic Oral: Moist Mucosa, No Gingival or Mucosal Lesions/ Ulcerations Neck: Supple, Trachea Midline Lungs: Clear to auscultation, Normal air movement, No rhonchi, No wheeze Cardiovascular: Regular rate, Regular Rhythm, Normal S1, Normal S2, No murmurs, No Ectopic Activity, No rub noted, No Gallop Abdomen: Bowel Sounds Present, Soft, Non Tender, Non-Distended, Obese Extremities: No clubbing, No cyanosis, No edema, Capillary Refill Less than 3 Seconds, Peripheral Pulses Normal Skin: No rashes Musculoskeletal: No Tenderness to Palpation of Joints or Extremities, No Muscle Wasting Lymphatic: No Cervical, Supraclavicular, or Inguinal Adenopathy Neurological: Cranial nerves II-XII grossly intact, Neuro grossly intact Psych/Mental Status: Normal Affect, Appropriate, - - very pleasant Microbiology Past 72 Hours 01/11/20 12:55 Blood Culture (Wb) - Anticubital Right Blood Culture - Preliminary No growth in 48 hours. 01/11/20 10:25 Blood Culture (Wb) - Anticubital Right Blood Culture - Preliminary No growth in 48 hours. 01/11/20 18:05 Mucosa - Nose - Final 01/11/20 10:46 Mucosa - Nasopharyngeal Respiratory Panel (PCR) - Final Laboratory Results 01/13/20 16:15: COVID-19 (TAI) Not Detected 01/14/20 06:10: Sodium 139, Potassium 3.6, Chloride 106, Carbon Dioxide 27.0, Anion Gap 6, BUN 12, Creatinine 1.08, Estim Creat Clear Calc 111.15, Est GFR (MDRD) Af Amer 96, Est GFR (MDRD) Non-Af 79, BUN/Creatinine Ratio 11.1, Glucose 86, Calcium 8.8 01/14/20 06:10: APTT 26.2 01/14/20 06:10: WBC 6.2, RBC 4.66, Hgb 13.4, Hct 42.1, MCV 90.3, MCH 28.8, MCHC 31.8 L, RDW Std Deviation 46.4 H, RDW Coeff of Steve 14.2, Plt Count 198, MPV 10.9 Current Medications Acetaminophen (Acetaminophen 325 Mg Tablet) 650 mg PO Q6H PRN PRN PRN Reason: Pain Score 1-10/Temp > 100.7 F Al Hydroxide/Mg Hydroxide (Mag Hydrox/Al Hydrox/Simeth 30 Ml Udc) 30 ml PO Q6H PRN PRN PRN Reason: Gastric Burning Albuterol Sulfate (Albuterol 2.5 Mg/3 Ml Vial.Neb.) 2.5 mg INHALATION Q2H PRN PRN PRN Reason: SOB/Wheezing Aspirin (Aspirin 81 Mg Tab.Chew) 81 mg PO DAILY@0800 [facility] Last Admin: 01/14/20 06:10 Dose: 81 mg Documented by: Enalaprilat (Enalaprilat 1.25 Mg/Ml Vial) 0.625 mg IV Q6H PRN PRN Reason: SBP> 160 Heparin Sodium (Porcine) (Heparin Injection (Vial) 5,000 Unit/Ml Vial) 0 unit IV UD PRN; Protocol PRN Reason: dose adjustment Last Admin: 01/12/20 20:11 Dose: 3,000 unit Documented by: Heparin Sodium/Dextrose () 25,000 units in 250 mls @ 22 mls/hr IV .[id number] [facility]; Protocol Last Titration: 01/14/20 14:21 Dose: Infused Documented by: Sodium Chloride () 1,000 mls @ 15 mls/hr IV .Q48H [facility] Last Infusion: 01/14/20 14:20 Dose: Infused Documented by: Ibuprofen (Ibuprofen 400 Mg Tablet) 400 mg PO Q4H PRN PRN PRN Reason: Pain Score 1-10/Temp > 100.7 F Lisinopril (Lisinopril 20 Mg Tablet) 20 mg PO BID [facility] Last Admin: 01/14/20 06:09 Dose: 20 mg Documented by: Melatonin (Melatonin 3 Mg Tablet) 3 mg PO QHS PRN PRN PRN Reason: INSOMNIA Metoprolol Tartrate (Metoprolol Tartrate 50 Mg Tablet) 50 mg PO BID [facility] Last Admin: 01/14/20 06:10 Dose: 50 mg Documented by: Ondansetron HCl (Ondansetron 4 Mg/2 Ml Vial) 4 mg IV Q8H PRN PRN PRN Reason: NAUSEA/VOMITING Senna/Docusate Sodium (Senna/Docusate Sodium 1 Tablet) 2 tablet PO BID PRN PRN PRN Reason: Constipation Sodium Chloride (0.9% Saline Lock 10 Ml Syringe) 10 - 40 ml IV UD PRN PRN Reason: SALINE FLUSH Trimethoprim/Sulfamethoxazole (Smz/Tmp Ds Tablet) 2 tablet PO BID [facility] Last Admin: 01/14/20 13:57 Dose: 2 tablet Documented by: Zinc Sulfate (Zinc Sulfate (50mg Elemental) 220 Mg Capsule) 220 mg PO DAILY [facility] Last Admin: 01/14/20 13:58 Dose: 220 mg Documented by: Inpatient E&M: [id number] [facility]
--- NOTE | 2020-01-14 12:44 | CASEMGMT ---
WILLIAM ANDERSON assessment: Phone interview with patient for initial transition planning/care coordination assessment as pt possibly COVID positive. WILLIAM ANDERSON introduced self and role at [facility], pt voices understanding and consents to assessment at this time. Pt is A/Ox4 at this time and answers all questions appropriately at this time. Care providers, pharmacy, and demographics verified at this time. Presentation: Pt arrives to ED w/ palpitations, dizziness, and 'infected hair' Admitting dx: New onset Afib PCP: Neli Canales Specialists: Pt states no current specialists at this time. Preferred Pharmacy: [facility] [place] Insurance: [employer] Prescription Benefit: Pt states has Rx coverage thru insurance. Living Will/HPOA: Pt states does not have LW/HPOA and declines AD info at this time. LNOK: Chica Patricia, mother Living Arrangements: Pt states lives alone in apt and states no concerns at home at this time. Pt states is independent with ADL's. Transportation: Pt states drives self and states no transportation concerns at this time. DME/HHC: Pt states has a cpap that he bought and states no need for any further DME at this time. Pt states no hx of HHC or SNF in the past. Pt states no concerns with going home at time of discharge. 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 Pt states does not smoke cigarettes but does drink ETOH 1-3 times/week. Pt voices no further concerns/needs at this time. CM to follow for any further discharge planning/needs. Advised pt to ask for CM if any further questions/concerns/needs arise, voices understanding. Pt Goal: Home Plan: [place] WILLIAM ANDERSON
--- NOTE | 2020-01-14 12:48 | PCM.WORK.EX ---
Work/School Excuse Work/School Excuse for:: Patient Please excuse this person from:: Work From: 01/11/20 through: 01/25/20
--- NOTE | 2020-01-14 12:52 | PN.CARD_ITS ---
Subjectve: The patient was evaluated earlier this day. He denied any ongoing palpitations or chest discomfort or obvious shortness of breath or dyspnea. There has been no near syncope or syncope. He appeared to be tolerating his medication adjustment well. Objective: Vital Signs Temp Pulse Resp BP Pulse Ox 97.3 F L 84 24 H 112/73 94 01/14/20 09:43 01/14/20 09:43 01/14/20 09:43 01/14/20 09:43 01/14/20 12:00 Oxygen Delivery Method Room Air Weight: 410 lb 15.066 oz Body Mass Index (BMI) 48.7 Intake and Output for Last 24 Hours 01/12/20 01/13/20 01/14/20 23:59 23:59 23:59 Intake Total 1342.68 / 1342.68 1523.75 / 1523.75 88.2 / 88.2 Balance 1342.68 / 1342.68 1523.75 / 1523.75 88.2 / 88.2 General: Awake, Alert, Oriented x 3, Cooperative, No Acute Distress, Obese HEENT: Atraumatic, Normocephalic, PERRL, EOMI, Sclera Non Icteric Neck: Supple, Good ROM, No JVD Lungs: Clear to auscultation Cardiovascular: Regular Rhythm, Normal S1, Normal S2 Abdomen: Bowel Sounds Present, Soft Extremities: No edema Neurological: No Focal Motor or Sensory Deficit Psych/Mental Status: Appropriate 01/14/20 06:10: Sodium 139, Potassium 3.6, Chloride 106, Carbon Dioxide 27.0, Anion Gap 6, BUN 12, Creatinine 1.08, Est GFR (MDRD) Af Amer 96, Est GFR (MDRD) Non-Af 79, BUN/Creatinine Ratio 11.1, Glucose 86, Calcium 8.8 01/14/20 06:10: APTT 26.2 01/14/20 06:10: WBC 6.2, RBC 4.66, Hgb 13.4, Hct 42.1, MCV 90.3, MCH 28.8, MCHC 31.8 L, Plt Count 198, MPV 10.9 Rhythm: Sinus rhythm Medical Necessity - Tobacco Use Smoking Status: Never smoker Tobacco Use: Non-smoker Assessment/Plan 1. Atrial fibrillation/flutter The patient presented with findings on ECG compatible with atrial flutter. On his satellite project site monitor there have been questions of paroxysmal atrial fibrillation. He has been treated with rate control therapy, antiarrhythmic therapy, and anticoagulant therapy. He has had conversion to sinus rhythm. He is now on oral rate limiting medication. He will be placed on oral anticoagulant therapy. He has undergone evaluation with a transthoracic echocardiogram. The results are as noted. It does raise concern of an underlying cardiomyopathy. At the current time the question is whether this is related to his atrial dysrhythmia/tachycardia dysrhythmia or an underlying CAD mediated process. Thus he has been recommended for further evaluation with diagnostic cardiac catheterization. The procedure and risks were discussed with him. He was agree able to this approach. However, this procedure is now on hold secondary to concerns of the patient being COVID-19 positive. 2. Abnormal cardiac enzymes He does have abnormal troponin I levels. This may be secondary to his atrial dysrhythmia with rapid ventricular response and a type II response. However underlying CAD has not necessarily been excluded. Based upon his concerning symptoms and his objective findings it would not be unreasonable to consider him for further definitive evaluation with diagnostic cardiac catheterization. 3. Hypertension His blood pressure will be followed. He may need readjustment of his antihypertensive therapy. As part of his antihypertensive therapy he was on HCTZ. This may contribute to why his potassium level is somewhat low. He will be receiving potassium supplements. His potassium level has improved. He will continue his medical regimen without his HCTZ. 4. CHRISTOPHER He does have a report of CHRISTOPHER and uses a CPAP therapy. This may be a contributing factor to his atrial dysrhythmia. 5. COVID-19 positive The patient had an original send out COVID-19 test prior to his admission to the PCU. The results of this test were pending at that time. Thus he subsequently underwent the COVID-19 antigen test which was reported as negative prior to his arrival in the PCU. Yesterday his original COVID-19 send out test was reported as positive. He then underwent a repeat in-house COVID-19 PCR test which was reported as negative. His case has been discussed via telephone between the [facility] staff and infectious disease. At the present time the recommendation from infectious disease has been that the patient be treated as he is COVID-19 positive with appropriate additional evaluation/medical therapy, which thus far he has not required for COVID-19 positive status, and a 14-day quarantine. After that time, barring a change in his clinical status, he has been told that he can be released from quarantine and proceed with his cardiac evaluation. Thus at this time, noting that he is symptomatically and hemodynamically stable, his cardiac catheterization procedure will be placed on temporary hold until his COVID-19 positive status resolves/quarantine time resolves, and then if no other concerning events hopefully he will be able to proceed with his additional cardiovascular studies. The patient's case has been reviewed with the patient and the [facility] staff. This note was generated using a voice recognition system and there may be incorrect words, spelling or punctuation that were not noted when reviewing the office note prior to saving.
--- NOTE | 2020-01-14 13:20 | CASEMGMT ---
Pt to be sent home on Xarelto at discharge and med e-scribed to [facility] previously. Call to [facility] and per tech, pt does not have Rx coverage, only a discount card at this time. There is no PCN or Bin number on pt's scanned card here at this time, so this RN CM unable to provide info to pharmacy at this time. Pt to be given a Xarelto 30 day free trial card and co-pay card at this time with instructions. Pt had told this WILLIAM ANDERSON that his insurance did cover meds. SStlamonte THOMAS CM
[2020-01-14] MEDS: Smz/Tmp Ds Tablet 2 TABLET PO (13:57)
== END 2020-01-14 14:48 | disposition home or self-care (01) | DRG 308 ==
LOC: ED 16:46 → PCU 17:38
PROVIDERS: Internal Medicine Cardiovascular Disease; Nurse Practitioner Family; Student in an Organized Health Care Education/Training Program; Admitting Provider Internal Medicine; Emergency Provider Student in an Organized Health Care Education/Training Program; Visit Provider Internal Medicine
DX: I48.91 Unspecified atrial fibrillation (principal); U07.1 COVID-19; Z68.42 Body mass index [BMI] 45.0-49.9, adult; I48.92 Unspecified atrial flutter; I34.0 Nonrheumatic mitral (valve) insufficiency; I36.1 Nonrheumatic tricuspid (valve) insufficiency; I11.9 Hypertensive heart disease without heart failure; F10.20 Alcohol dependence, uncomplicated; E66.01 Morbid (severe) obesity due to excess calories; E87.6 Hypokalemia; G47.33 Obstructive sleep apnea (adult) (pediatric); L72.3 Sebaceous cyst; Z79.899 Other long term (current) drug therapy; Z86.711 Personal history of pulmonary embolism; Z86.718 Personal history of other venous thrombosis and embolism; Z79.01 Long term (current) use of anticoagulants; F12.90 Cannabis use, unspecified, uncomplicated; I25.2 Old myocardial infarction
CPT/HCPCS: 36415; 71045; 80048; 80053; 80061; 80307; 83605; 83735; 84443; 84484; 85025; 85027; 85379; 85610; 85730; 87040; 87426; 87633; 87635; 93005; 93306; 94003; 94660; 99251; 99285; J7030; Q9957; A4216; C8929; G0463; U0002; U0003

== ENCOUNTER → 2020-03-18 09:30 | Outpatient (CLI) | payer SELFPAY ==
[2020-02-26 13:10] VITALS: BMI 47.9
[2020-03-12 16:02] LABS: Absolute Lymphocyte Count 2.04 X10^3/uL (0.83-4.51); Basophil# 0.01 X10^3/uL; Basophil% 0.2 % (0-1); Eosinophil# 0.17 X10^3/uL; Hematocrit 44.5 % (40-54); Hemoglobin 14.1 g/dL (13.0-16.5); Lymphocyte # 2.04 X10^3/ul (4.0); Mean Corp Hgb Conc 31.7 g/dL (32-36); Mean Corpuscular Hgb 28.1 pg (27.0-32.0); Mean Corpuscular Volume 88.6 fL (80-94); Mean Platelet Vol. 12.2 fl (6.2-12.0); Monocyte# 0.39 X10^3/uL; Monocyte% 6.9 % (0-10); NRBC Flagged by Analyzer 0 % (0-5); Neutrophil # 3.04 X10^3/uL (2.7-7.7); Neutrophil % 53.7 % (47-70); Platelet Count 211 K/mm3 (150-450); RBC Distribution Width CV 14.1 % (11.6-14.6); RBC Distribution Width SD 45.9 fl (35.1-43.9); Red Blood Count 5.02 M/mm3 (4.6-6.2); White Blood Count 5.7 K/mm3 (4.4-11.0)
[2020-03-12 16:28] LABS: Anion Gap 5 (5-15); BUN 16 mg/dL (7-18); BUN/Creat Ratio 17.5 RATIO (10-20); Calcium,Total 8.9 mg/dL (8.5-10.1); Chloride 107 mmol/L (98-107); Creatinine, Serum 0.91 mg/dL (0.70-1.30); EST Glomerular Filtration Rate 96 mL/min (>60); Est Glom Filt Rate - Afr Amer 117 mL/min (>60); Glucose 98 mg/dL (74-106); Potassium 3.6 mmol/L (3.5-5.1); Sodium Level 138 mmol/L (136-145)
[2020-03-12 16:51] LABS: International Normalized Ratio 1.1; Partial Thromboplast Time 27.8 Seconds (24.1-36.2); Prothrombin Time (Protime)PT. 13.5 SECONDS (11.7-14.9)
[2020-03-17 08:07] VITALS: BMI 47.9
--- NOTE | 2020-03-18 05:00 | HP_ITS ---
HPI HPI History of Present Illness Details: This is a 44-year-old -Domin[place] male presents to the office today for a cardiovascular outpatient follow-up. He has a history of paroxysmal atrial fibrillation, hypertension, and obstructive sleep apnea. He was evaluated [facility] in January 2020 with atrial fibrillation with a non-ST elevated myocardial infarction thought to be a type II response. His echocardiogram showed a reduced ejection fraction of 30%. There was concern that this might be ischemia related versus rate and rhythm related. It was recommend he undergo heart cath catheterization. However, this was placed on hold due to COVID-19 diagnosis. He converted to sinus rhythm. Heart catheterization was decided to be pursued on an outpatient basis. Since he has been home he has not had any chest pain. He does not have any worsening SOB. He has not had any palpitations since he was here last. He does occasionally have lightheadedness. He does not have any edema. Intake Vital Signs 02/26/20 BP 130/80 H 02/26/20 Height 6 ft 5 in 02/26/20 Weight: 404 lb 02/26/20 BMI 47.9 02/26/20 BP 158/83 H 02/26/20 Blood Pressure Location Lt brachial 02/26/20 Position Sitting 02/26/20 Respiration 18 02/26/20 Pulse 67 02/26/20 Pulse Source Monitor 02/26/20 Pulse Oximetry (%) 96 Intake Visit Reasons: S/P [facility] PER LN Field Technical Support Consultant Required: No Accompanied by: None Is patient in pain?: No Allergies hydrochlorothiazide Adverse Reaction (Intermediate, Verified 02/26/20 13:29) low K+ Medications Lisinopril 40 mg PO QHS 01/11/20 [History Confirmed 02/26/20] Amana-3/Dha/Epa/Fish Oil [Amana 3 500 Softgel] 1 cap PO DAILY 01/11/20 [History Confirmed 02/26/20] Zinc Sulfate (50mg elemental) [Zinc Sulfate] 220 mg PO DAILY 01/11/20 [History Confirmed 02/26/20] Aspirin [Aspirin, Baby] 81 mg PO DAILY@0800 #30 tab.chew 01/14/20 [Rx Confirmed 02/26/20] Smz/Tmp Ds [Bactrim Ds] 2 tab PO BID #20 tab 01/14/20 [Rx Confirmed 02/26/20] apixaban 5 mg tablet 5 mg PO BID #60 tab 02/21/20 [Rx Confirmed 02/26/20] metoprolol tartrate 50 mg tablet 50 mg PO BID #60 tab 02/21/20 [Rx Confirmed 02/26/20] [facility] Medical History (Updated 02/26/20 @ 13:24 by Yoli WHITTINGTON, PA) Cardiomyopathy in disease classified elsewhere (Acute) Atrial fibrillation (Acute) CHRISTOPHER on CPAP (Chronic) HTN (hypertension) (Chronic) Family History (Updated 02/26/20 @ 13:32 by Yoli WHITTINGTON, PA) Mother Hypertension Cancer ovarian Social History (Updated 02/27/20 @ 15:30 by Yoli WHITTINGTON, PA) household members: none current occupational status: employed leisure activities: exercise Smoking Status: Never smoker alcohol intake: current alcohol intake frequency: a few times a week substance use type: marijuana, other details: occasional ROS Const Const: Negative for fatigue, weakness, fever(s) or headache(s) Eyes Eyes: Negative for blind spots, loss of peripheral vision or transient loss of vision ENT ENT: Negative for headache(s), dizziness, tinnitus or Nosebleed/epistaxis Cardio Chest Pain: No Palpitations: Yes Edema: None Muscle aches with walking: None Resp Respiratory: Negative for SOB with activity, SOB at rest, SOB orthopnea\SOB lying down or Cough GI GI: Negative nausea, vomiting, heartburn or vomiting blood/hematemesis : Negative for hematuria Musc Musc: Negative for muscle aches/ myalgia Neuro Neuro: Negative for dizziness, lightheadedness, near syncope, syncope, orthostatic symptoms, headache(s) or weakness Gold Hematologic/Lymphatic: Negative for easy bleeding Endo Endo: Negative for fatigue Cardiology Exam Const Appearance: cooperative, no acute distress and well developed Nutritional Appearance: obese Orientation: alert, awake and oriented x3 Head Head: normocephalic and atraumatic Mouth: moist mucous membranes Eyes General: appearance normal, both eyes and all related structures Conjunctivae: conjunctivae normal Pupils: PERRL EOM: EOM intact bilaterally Neck Neck: normal visual inspection, no lymphadenopathy and no JVD Carotids: Negative bruit Neck Mass: Negative Neck mass Chest Chest inspection: normal inspection of the chest and symmetric chest movement Auscultation: Bilateral: Clear to Auscultation Cardio Palpation: normal PMI Rate: regular rate Rhythm: regular rhythm Heart sounds: S1 normal and S2 normal; negative rub, gallop or murmur GI GI: normal to inspection, soft, no hepatosplenomegaly, bowel sounds present and obese; negative tender Neuro General: alert, awake, oriented x3, CN's II-XI intact bilaterally and moves all extremities Extremities Pulses: Normal: Right Posterior Tibial Pulse, Left Posterior Tibial Pulse, Right Radial Pulse, Left Radial Pulse Lower Extremity Edema: None: Bilateral Psych Psychological: normal affect Assessment & Plan 1. Subsequent non-ST elevation (NSTEMI) myocardial infarction I22.2 Plan With patient's elevated troponin during his hospital stay and cardiomyopathy would like to pursue a diagnostic heart catheterization to further assess. As mentioned above this was not pursued during his hospital stay due to his diagnosis of Covid. Patient is agreeable to proceed with this. He will be called with the date and time of procedure. His Eliquis will need to be held prior to his heart catheterization. 2. Atrial fibrillation I48.91 Plan Patient has not had any symptomatic recurrence. He will continue with his metoprolol and his Eliquis. Orders Orders: Basic Metabolic Profile (BMP) 02/26/20 Partial Thromboplast Time 02/26/20 Prothrombin Time w/INR 02/26/20 CBC W/Diff, Automated 02/26/20 3. CHRISTOPHER on CPAP G47.33; Z99.89 Wears CPAP at HS with 14 cmH2O Plan Encouraged compliance with his CPAP. 4. HTN (hypertension) I10 Plan Slightly elevated however for now we will continue to monitor. It did improve upon recheck. At this time do not feel that I can increase patient's lisinopril would consider adding additional medication. Orders Orders: Basic Metabolic Profile (BMP) 02/26/20 Partial Thromboplast Time 02/26/20 Prothrombin Time w/INR 02/26/20 CBC W/Diff, Automated 02/26/20 5. Cardiomyopathy in disease classified elsewhere I43 Plan Patient does have a decreased ejection fraction. For now he will continue with his metoprolol and lisinopril. After heart catheterization will continue to optimize patient's medications. Orders Orders: Basic Metabolic Profile (BMP) 02/26/20 Partial Thromboplast Time 02/26/20 Prothrombin Time w/INR 02/26/20 CBC W/Diff, Automated 02/26/20 6. Elevated troponin R77.8 Orders Orders: Basic Metabolic Profile (BMP) 02/26/20 Partial Thromboplast Time 02/26/20 Prothrombin Time w/INR 02/26/20 CBC W/Diff, Automated 02/26/20 Coding Level of Care Code Off vis,est,level 4 Diagnoses Subsequent non-ST elevation (NSTEMI) myocardial infarction I22.2 Atrial fibrillation I48.91 CHRISTOPHER on CPAP G47.33; Z99.89 HTN (hypertension) I10 Cardiomyopathy in disease classified elsewhere I43 Elevated troponin R77.8 Coding Level of Care Code Off vis,est,level 4 Diagnoses Subsequent non-ST elevation (NSTEMI) myocardial infarction I22.2 Atrial fibrillation I48.91 CHRISTOPHER on CPAP G47.33; Z99.89 HTN (hypertension) I10 Cardiomyopathy in disease classified elsewhere I43 Elevated troponin R77.8 Supplemental Info Supplemental Information Echocardiogram 2020: The study was technically difficult. Contrast injection was performed. Moderately dilated left ventricle. Moderate segmental systolic dysfunction (see wall motion). The estimated ejection fraction is 30 %. The left atrium is mildly enlarged. Mild (1+) mitral valve insufficiency. Mild tricuspid valve insufficiency. Mildly dilated aortic root. Right ventricular systolic pressure estimated to be 37 mmHg. There is evidence of diastolic dysfunction. Labs LDL Cholesterol 73 mg/dL (0-130) 01/12/20 HDL Cholesterol 41 mg/dL (40-) 01/12/20 Triglycerides 121 mg/dL (-199) 01/12/20 VLDL Cholesterol 24 mg/dL (5-40) 01/12/20 Diagnostics Electrocardiogram 01/14/20 Echocardiogram 01/11/20 Chest X-Ray 01/11/20 I have re-examined the patient. There are no clinical changes since date of exam. The surgeon/proceduralist and patient have discussed in detail the risk of exposure to and/or potential harm posed by the COVID-19 virus with having a surgery/procedure at this time versus the risk of delaying the surgery/procedure. It is not possible to know either the risk of delaying the surgery or procedure or chance of getting an infection with perfect accuracy, but a joint decision was made between the patient and the surgeon/proceduralist to proceed at this time with the scheduled surgery/procedure as indicated on the consent form.
== END ==
LOC: PAT 04-24 15:28
PROVIDERS: Physician Assistant Medical; Referring Provider Internal Medicine Cardiovascular Disease; Visit Provider Internal Medicine Cardiovascular Disease
DX: I10 Essential (primary) hypertension (principal); I43 Cardiomyopathy in diseases classified elsewhere; I48.91 Unspecified atrial fibrillation; R77.8 Other specified abnormalities of plasma proteins
CPT/HCPCS: 36415; 80048; 85025; 85610; 85730

== ENCOUNTER 2020-11-09 00:46 | Inpatient (IN) | payer OTHER, SELFPAY ==
[2020-11-09] VITALS (22 sets, daily range): BP systolic 119–167; BP diastolic 79–108; PULSE 100–154; RESP 16–36; TEMP 35.6–38.4; O2SAT 93–98; BMI 50.8; BMI 49.9
--- NOTE | 2020-11-09 01:00 | EKG12_ITS ---
Test Reason : CP Blood Pressure : / mmHG Vent. Rate : 151 BPM Atrial Rate : 302 BPM P-R Int : 000 ms QRS Dur : 084 ms QT Int : 238 ms P-R-T Axes : 095 039 -24 degrees QTc Int : 377 ms Atrial flutter Nonspecific ST and T wave abnormality Abnormal ECG Confirmed by JOANIE NAM, KENNEDY ([id number]), city editor JOSEPHINE COHEN ([id number]) on 11/11/2020 8:05:03 AM Referred By: WILLIAM Confirmed By:AMBREEN NAIR MD
[2020-11-09] MEDS: Aspirin 81 MG TAB.CHEW 324 MG PO (01:06)
[2020-11-09] MEDS: Metoprolol Tartrate 5 MG/5 ML Vial IV ×3 (01:11→01:31)
[2020-11-09 01:15] LABS: Absolute Lymphocyte Count 0.89 X10^3/uL (0.83-4.51); Absolute Neutrophil Count 4.7 X10^3/uL (2.0-7.7); Basophil# 0.02 X10^3/uL; Basophil% 0.3 % (0-1); Eosinophil# 0.01 X10^3/uL; Eosinophils% 0.2 % (0-5); Hematocrit 41.1 % (40-54); Hemoglobin 13.5 g/dL (13.0-16.5); Lymphocyte # 0.89 X10^3/ul (0.83-4.51); Lymphocyte % 14.6 % (19-41); Mean Corp Hgb Conc 32.8 g/dL (32-36); Mean Corpuscular Hgb 28.7 pg (27.0-32.0); Mean Corpuscular Volume 87.4 fL (80-94); Mean Platelet Vol. 11.2 fl (6.2-12.0); Monocyte# 0.47 X10^3/uL; Monocyte% 7.7 % (0-10); NRBC Flagged by Analyzer 0 % (0-5); Neutrophil % 76.9 % (47-70); Platelet Count 184 K/mm3 (150-450); RBC Distribution Width SD 44.9 fl (35.1-43.9); White Blood Count 6.1 K/mm3 (4.4-11.0)
--- NOTE | 2020-11-09 01:16 | RAD_ITS ---
STUDY: X-RAY CHEST REASON FOR EXAM: Male, 44 years old. chest pain TECHNIQUE: 1 view COMPARISON: 01/11/2020 FINDINGS: Cardiac silhouette is enlarged. Mild pulmonary vascular congestion is seen. There is questionable small right-sided pleural effusion.. Lungs are clear. The trachea is midline. There is no pneumothorax. The bones are grossly intact. RAD/Chest 1 View (Portable) IMPRESSION: Cardiomegaly with mild pulmonary vascular congestion and questionable small right-sided pleural effusion. Electronically Signed: Gonzales Lamas MD at 2:02 EDT Tel , Service support ,
[2020-11-09 01:26] LABS: Anion Gap 5 (5-15); BUN 13 mg/dL (7-18); BUN/Creat Ratio 12.3 RATIO (10-20); Calcium,Total 8.6 mg/dL (8.5-10.1); Chloride 104 mmol/L (98-107); Creatinine, Serum 1.06 mg/dL (0.70-1.30); EST Glomerular Filtration Rate 81 mL/min (>60); Est Glom Filt Rate - Afr Amer 98 mL/min (>60); Estimated Creatinine Clearance 113.24 ml/min; Glucose 101 mg/dL (74-106); Potassium 3.5 mmol/L (3.5-5.1); Sodium Level 135 mmol/L (136-145); Troponin-I HS 62 pg/mL (3.0-78.0)
--- NOTE | 2020-11-09 01:42 | EDS_ITS ---
HPI History of Present Illness Chief Complaint: Chest Pain Informant: patient Onset/Context/Timing Onset: Days Quality: Positive for Heaviness Narrative Narrative: Patient presenting with intermittent chest tightness palpitations lightheaded symptoms since Tuesday. States more at night. This evening more intense. Reports diagnosed previously atrial fibrillation currently on metoprolol 50 mg twice a day denies any missed doses. States when he was hospitalized blood pressure medicines were changed with hydrochlorothiazide being removed with metoprolol being added. He denies taking daily aspirin or any blood thinners currently. Denies cough symptoms. No history of [place]. Denies diabetes or hypercholesterolemia. Denies tobacco history. Denies family histor y of WI at a young age. Review of the records he was admitted back in January 2020 new onset atrial fibrillation. Found to have cardiomyopathy with EF of 30%. Apparently hospitalization complicated with Covid infection cardiac cath was delayed as an outpatient. Patient states he followed up and saw nurse practitioner 2 to 3 months ago however catheterization has not been started. In addition he was sent home on Xarelto with plan holding Xarelto for procedure however patient states he thought it was for treatment prior to catheterization. Has not taken it since shortly since being discharged. Prior Similar Symptoms: Yes Recent Illness/Hospitalization: No CVD Risk Factors: Positive for Hypertension PE Risk Factors: Negative for Recent Travel/Surgery, Recent Immobilization, Prior DVT or PE, Cancer and OCP + Smoking + >/=35 PFSH PFSH Medical History Atrial fibrillation Cardiomyopathy in disease classified elsewhere HTN (hypertension) CHRISTOPHER on CPAP Home Medications lisinopril 40 mg PO QHS 01/11/20 [History Last Taken 01/10/20] omega 4-tlj-mut-fish oil 1 cap PO DAILY 01/11/20 [History Last Taken 01/11/20] aspirin 81 mg PO DAILY@0800 #30 tab.chew 01/14/20 [Rx Last Taken Unknown] metoprolol tartrate 50 mg PO BID 11/09/20 [History Last Taken Unknown] multivitamin 1 tab PO DAILY 11/09/20 [History Last Taken Unknown] potassium chloride 20 meq PO DAILY 11/09/20 [History Last Taken Unknown] Allergy/AdvReac Type Severity Reaction Status Date / Time hydrochlorothiazide AdvReac Intermediate low K+ Verified 11/09/20 00:46 Family History Mother Hypertension Cancer ovarian Social History household members: none current occupational status: employed leisure activities: exercise Smoking Status: Former smoker alcohol intake: current alcohol intake frequency: a few times a week substance use type: marijuana and other details: occasional ROS ROS ED Constitutional Constitutional ED: Denies chills, fever(s) or sweats Eyes Eyes: Denies change in vision ENT ENT ED: Denies dysphagia or sore throat Cardiovascular Cardiovascular: Reports chest pain and palpitations; Denies leg edema or racing heartbeat Respiratory/Chest Respiratory/Chest: Reports dyspnea and dyspnea on exertion; Denies cough Gastrointestinal Gastrointestinal: Denies abdominal pain, diarrhea, nausea or vomiting Genitourinary Genitourinary ED: Denies dysuria, hematuria or urinary frequency Musculoskeletal Musculoskeletal: Denies back pain, extremity pain or neck pain Integumentary Denies rash or wounds Neurologic Neurologic: Denies headache(s), paresthesias or weakness EXAM Physical Exam Const Vital Signs: 11/09/20 00:49 11/09/20 00:56 11/09/20 01:06 Temperature 97.8 F Temperature Source Temporal Pulse Rate 150 H Respiratory Rate 36 H Respiratory Effort Short of Breath Respiratory Pattern Tachypnea Blood Pressure 151/93 H Blood Pressure Mean 112 Pulse Ox 96 Oxygen Delivery Method Room Air Room Air Oxygen Flow Rate (L/min) 11/09/20 01:22 11/09/20 02:00 Temperature Temperature Source Pulse Rate 149 H 103 H Respiratory Rate 33 H 23 H Respiratory Effort Respiratory Pattern Blood Pressure 154/108 H 152/81 H Blood Pressure Mean 123 104 Pulse Ox 93 93 Oxygen Delivery Method Room Air Nasal Cannula Oxygen Flow Rate (L/min) 2 Positive well nourished and well developed General Appearance ED: well developed and NAD HEENT Reports moist mucous membranes normocephalic and atraumatic Eyes PERRL, EOMs intact bilaterally and conjunctivae normal General Eye ED: Yes normal appearance of both eyes Neck no lymphadenopathy and supple General: Negative for tenderness Chest Wall Chest: Negative for tenderness Resp normal respiratory effort and normal air movement Effort and Inspection: symmetric chest movement; Negative for respiratory distress Cardio regular rhythm and no murmurs Rate: tachycardic Peripheral Pulses: pulses 2+ throughout GI normal to inspection, nondistended, normoactive bowel sounds and non-tender Palpation: Negative for guarding or rebound tenderness present Back/Spine no CVA tenderness and no thoracic nor lumbar tenderness Extremity normal to inspection General Extremety ED: Negative for edema or tenderness General Extremity: Negative for edema Neuro oriented x3 and no sensory deficits noted Sensorium / Orientation: awake and alert Skin no rashes or lesions noted and no wounds Heart Score History: Slightly/Non-Suspicious ECG: Normal Age: </= 45 years Risk Factors: >/= 3 Risk Factors or History of CAD Troponin: </= Normal Limit Score: 2 MDM MDM MDM Narrative Medical decision making narrative: Patient presenting chest pains palpitations EKG with atrial flutter RVR rate of 151. Aspirin given. Was given 3 rounds of Lopressor IV with minimal improvement of heart rate. He is given IV Cardizem heart rate down to the 100s to 110s. His symptoms were improving. Chest x-ray noting pulmonary vascular congestion with questionable small right-sided pleural effusion. He has no leg swelling. He is complaining of increasing dyspnea worse with exertion. He does have cardiomyopathy with EF of 30% back in January. He is currently not on diuretic. BNP added will give Lasix 40 mg. Will give oral Cardizem to help maintain rate. Cardiac work-up is thus far negative. He was chest pain-free on examination with rate control. Patient discharge in January into normal sinus rhythm. With his history likely has been in atrial fib relation with a flutter for the past 5 days. Will discuss with hospitalist for admission. 0250: Spoke with Dr. Del Real for admission to PCU. Lab Data Labs: Laboratory Results - last 24 hr 11/09/20 11/09/20 00:55 00:55 WBC 6.1 RBC 4.70 Hgb 13.5 Hct 41.1 MCV 87.4 MCH 28.7 MCHC 32.8 RDW Std Deviation 44.9 H RDW Coeff of Steve 14.0 Plt Count 184 MPV 11.2 Immature Gran % (Auto) 0.300 Neut % (Auto) 76.9 H Lymph % (Auto) 14.6 L [place] % (Auto) 7.7 Eos % (Auto) 0.2 Baso % (Auto) 0.3 Absolute Neuts (auto) 4.7 Absolute Lymphs (auto) 0.89 Nucleated RBC % 0 Sodium 135 L Potassium 3.5 Chloride 104 Carbon Dioxide 26.0 Anion Gap 5 BUN 13 Creatinine 1.06 Estim Creat Clear Calc 113.24 Est GFR (MDRD) Af Amer 98 Est GFR (MDRD) Non-Af 81 BUN/Creatinine Ratio 12.3 Glucose 101 Calcium 8.6 Troponin I High Sens 62 Radiography Chest X-Ray - ED: 1 View, Read by ED Physician and Read by Radiologist Diagnostic Testing: Radiology Impression Chest X-Ray 11/09/20 01:16 IMPRESSION: Cardiomegaly with mild pulmonary vascular congestion and questionable small right-sided pleural effusion. Electronically Signed: Gonzales Lamas MD at 2:02 EDT Tel , Service support , EKG Initial EKG: Attestation: I personally reviewed and interpreted this EKG as follows: Comments: Atrial flutter rate of 151, no ST or T wave changes. Discharge Plan Triage Chief Complaint: Chest Pain ED Provider: Juan Perez Dx/Rx/DC Orders Clinical Impression: Atrial fibrillation/flutter, Chest pain, Acute CHF Prescriptions: No Action lisinopril 40 MG tablet 40 mg PO QHS RF: 0 omega 8-qno-qls-fish oil 1 EACH capsule 1 cap PO DAILY RF: 0 aspirin 81 MG tablet,chewable 81 mg PO DAILY@0800 Qty: 30 RF: 0 multivitamin Tablet 1 tab PO DAILY RF: 0 potassium chloride 20 mEq Tablet Extended Release 20 meq PO DAILY RF: 0 metoprolol tartrate 50 mg tablet 50 mg PO BID RF: 0 Primary Care Provider: [facility] Neli Jimenez [facility] [Primary Care Provider] - Disposition Disposition: Acute Care Hospital [facility]
[2020-11-09] MEDS: dilTIAZem 25 MG/5 ML Vial 15 MG IV BOLUS (01:49)
[2020-11-09] MEDS: dilTIAZem 60 MG Tablet PO ×3 (02:52→23:03)
[2020-11-09] MEDS: Furosemide 40 MG/4 ML Vial IV ×3 (02:52→16:30)
--- NOTE | 2020-11-09 03:10 | PCM.HP.STD ---
[facility] - General General Date of Admission: 11/09/20 HPI Narrative VICK PATTEN, is a 44 M with a significant history of hypertension; paroxysmal A. fib; combined systolic and diastolic heart failure; and obstructive sleep apnea who presents to emergency department with 1 week history of progressively worsening chest pain. His chest pain is substernal. His chest pain is nonradiating. He described the chest pain as pressure. Moving too fast aggravates the chest pain. He denies any ameliorating factors to the chest pain. He denies any nausea; vomiting or chest pain. Associated with symptoms and is shortness of breath at rest. His shortness of breath increases markedly with exertion. Further he has lightheadedness. Also he has fatigue and weakness. Moreover he noticed a decrease in his urination. Of note in January 2020 patient was diagnosed with combined systolic and diastolic heart failure as well as non-ST elevation DC. Cardiac catheter was recommended but postponed secondary to COVID-19 diagnosis. Patient was placed on Eliquis with plan to do cardiac cath later on but to hold Eliquis prior to cardiac cath. However patient thought that the Eliquis was preoperative treatment for cardiac catheter and because he could not do the cardiac cath secondary to insurance issues he stopped Eliquis Xarelto. Also previously he was on hydrochlorothiazide. He reported that hydrochlorothiazide was depleting his potassium. Hydrochlorothiazide was stopped and patient now is on metoprolol and lisinopril. 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 Home Medications lisinopril 40 mg PO QHS 01/11/20 [History Last Taken 01/10/20] omega 8-exv-pby-fish oil 1 cap PO DAILY 01/11/20 [History Last Taken 01/11/20] aspirin 81 mg PO DAILY@0800 #30 tab.chew 01/14/20 [Rx Last Taken Unknown] metoprolol tartrate 50 mg PO BID 11/09/20 [History Last Taken Unknown] multivitamin 1 tab PO DAILY 11/09/20 [History Last Taken Unknown] potassium chloride 20 meq PO DAILY 11/09/20 [History Last Taken Unknown] Allergy/AdvReac Type Severity Reaction Status Date / Time hydrochlorothiazide AdvReac Intermediate low K+ Verified 11/09/20 00:46 Family History (Updated 11/09/20 @ 03:[address] Shemar Del Real MD) Mother Hypertension Cancer ovarian Other Anxiety Hyperlipidemia no surgical history Social History household members: none current occupational status: employed leisure activities: exercise Smoking Status: Former smoker alcohol intake: current alcohol intake frequency: a few times a week substance use type: marijuana and other details: occasional ROS ROS Narrative Constitutional: Denies anorexia and change in weight Eyes: Denies blurry vision, change in eye color, change in vision, discharge from eye(s), double vision, erythema, eye pain, loss of vision or other HEENT: Denies abnormal hearing, dysphagia, ear pain, epistaxis, headache(s), hearing loss, nasal congestion, nasal discharge, post nasal drip, sinus pressure, sore throat or other Cardiovascular: Reports chest pain; dyspnea on exertion; orthopnea and paroxysmal nocturnal dyspnea. Respiratory/Chest: Reports shortness of breath. Denies cough, excessive phlegm production, or wheezing. Gastrointestinal: Denies abdominal pain, coffee ground emesis, constipation, diarrhea, dyspepsia, hematemesis, hematochezia, loose stools, melena, nausea, vomiting or other Genitourinary: Reports decrease in urination. Denies burning urination, difficulty urinating, dysuria, hematuria, nocturia, urinary hesitancy, urinary incontinence, urinary urgency or other Musculoskeletal: Denies arthralgias, back pain, joint pain, joint stiffness, joint swelling, myalgias, neck pain or other Neurologic: Denies abnormal gait, abnormal speech, confusion, disequilibrium, dizziness, focal weakness, headache(s), numbness, paresthesias, seizure-like activity, seizures, syncope, tingling, tremor(s) or other Psychiatric: Denies anxiety, depression, homicidal ideation, suicidal ideation or other Endocrinology: Denies change in body appearance, cold intolerance, excessive sweating, heat intolerance, polydipsia, polyuria or other Hematologic/Lymphatic: Denies anemia, easy bleeding, easy bruising, lymphadenopathy or other Integumentary: Denies rashes Allergic/Immunologic: Denies rhinitis, hives, eczema, asthma or other Vital Signs Vital Signs Vital Signs: 11/09/20 00:49 11/09/20 00:56 11/09/20 01:06 Temperature 97.8 F Temperature Source Temporal Pulse Rate 150 H Respiratory Rate 36 H Respiratory Effort Short of Breath Respiratory Pattern Tachypnea Blood Pressure 151/93 H Blood Pressure Mean 112 Pulse Ox 96 Oxygen Delivery Method Room Air Room Air Oxygen Flow Rate (L/min) 11/09/20 01:22 11/09/20 02:00 Temperature Temperature Source Pulse Rate 149 H 103 H Respiratory Rate 33 H 23 H Respiratory Effort Respiratory Pattern Blood Pressure 154/108 H 152/81 H Blood Pressure Mean 123 104 Pulse Ox 93 93 Oxygen Delivery Method Room Air Nasal Cannula Oxygen Flow Rate (L/min) 2 Weight Weight: 194.3 kg Body Mass Index (BMI) 50.8 Physical Exam Narrative Physical exam: General: Well-nourished, well-developed. Head: Normocephalic, atraumatic, no tenderness Eyes: PERRLA, EOMI ENT, no trauma, moist mucous membranes, no rhinorrhea Neck: Nontender, full range of motion, no spinal tenderness, deformities, step-off CVS: Tachycardia. S1-S2 present. No murmur, gallop or rub. Respiratory : Diminished bilaterally, chest wall nontender, no wheezing Abdomen: Soft, nontender, nondistended, normal bowel sounds, no masses : Deferred Back: Nontender, no CVA tenderness, no midline spinal tenderness, deformities, step-offs Extremities: Nontender full range of motion, no trauma Skin: Normal color, no trauma, abrasions Neuro: Alert, oriented, cranial nerves II through XII grossly intact. Psychiatry: Normal mood. Normal affect. Not depressed. Not anxious. Results Lab / Micro Data Result Diagrams: 11/09/20 00:55 11/09/20 00:55 Labs: Laboratory Results - last 24 hr 11/09/20 00:55: WBC 6.1, RBC 4.70, Hgb 13.5, Hct 41.1, MCV 87.4, MCH 28.7, MCHC 32.8, RDW Std Deviation 44.9 H, RDW Coeff of Steve 14.0, Plt Count 184, MPV 11.2, Immature Gran % (Auto) 0.300, Neut % (Auto) 76.9 H, Lymph % (Auto) 14.6 L, [place] % (Auto) 7.7, Eos % (Auto) 0.2, Baso % (Auto) 0.3, Absolute Neuts (auto) 4.7, Absolute Lymphs (auto) 0.89, Nucleated RBC % 0 11/09/20 00:55: Sodium 135 L, Potassium 3.5, Chloride 104, Carbon Dioxide 26.0, Anion Gap 5, BUN 13, Creatinine 1.06, Estim Creat Clear Calc 113.24, Est GFR (MDRD) Af Amer 98, Est GFR (MDRD) Non-Af 81, BUN/Creatinine Ratio 12.3, Glucose 101, Calcium 8.6, Troponin I High Sens 62 Micro: Microbiology 11/09/20 01:49 Nasal Secretion SARS-CoV-2 Antigen (Rapid) - Final Radiology Impression Chest X-Ray 11/09/20 01:16 IMPRESSION: Cardiomegaly with mild pulmonary vascular congestion and questionable small right-sided pleural effusion. Electronically Signed: Gonzales Lamas MD at 2:02 EDT Tel , Service support , Assessment & Plan Assessment/Plan (1) Chest pain: QUALIFIERS: Chest pain type: unspecified Qualified Code(s): R07.9 - Chest pain, unspecified (2) Acute CHF: QUALIFIERS: Heart failure type: systolic Qualified Code(s): I50.21 - Acute systolic (congestive) heart failure (3) Atrial fibrillation/flutter: PLAN: A flutter Patient received metoprolol IV; Cardizem IV and Cardizem p.o. at the emergency department. His heart rate continues to be in high 120s and above. With a flutter and congestive heart failure we will start patient on digoxin. Place on a monitored bed at progressive care unit EKG reviewed at emergency department showed a flutter with ventricular rate of 151. Old EKG on 14 January 2020 showed normal sinus rhythm. Of note patient was diagnosed with new onset A. fib in January 2020. Echocardiogram 01/11/2020: Ejection fraction 30%. Mild mitral valve insufficiency. Mild tricuspid valve insufficiency. Right ventricle systolic pressure was 33 mmHg. We will check magnesium and TSH. Potassium was 3.5. Replacement ordered Lovenox 1 mg/kg every 12 hours ordered. Acute Exacerbation of combined systolic and diastolic heart failure Echocardiogram 01/11/2020: Ejection fraction 30%. And with evidence of diastolic dysfunction. Mild mitral valve insufficiency. Mild tricuspid valve insufficiency. Right ventricle systolic pressure was [address] on monitored bed at the progressive care unit Weight on admission to the floor; and then daily Strict I&O's Impression of chest x-ray by radiology: Cardiomegaly with mild pulmonary vascular congestion and questionable small right-sided pleural effusion. Actual checks x-ray was independently interpreted and agree radiologist interpretation. BNP is 533.4. Of note patient BMI is 49.9 kg/m?. Received Lasix 40 mg IV push at emergency department with good diuresis. Monitor electrolytes and renal function Titrate diuretics and heart failure/blood pressure medications with blood pressure. Fluid restriction of 1500 mls daily Cardiac diet ordered With a previous plan of getting a cardiac cath and with a flutter required multiple medications cardiology will be consulted. Lisinopril continued. Metoprolol 50 mg twice daily continued. With heart failure and a flutter there is room for going up on the metoprolol in due course. Chest pain Place on a monitored bed at [facility] care unit Received aspirin 324 mg at emergency department. ASA 81 mg p.o. daily ordered SL NTG 0.4 mg prn as needed for chest pain ordered We will check lipid panel. Initial high-sensitivity troponin is normal at 62. Serial cardiac enzymes ordered Stat EKG as needed for chest pain Hypertension Blood pressure is not within goal Metoprolol and lisinopril continued. Received digoxin at the emergency department. Trend blood pressure and adjust blood pressure medications. Obstructive sleep apnea Home CPAP continued BMI: 49.9 kilograms per meter square. Complicates care. Lifestyle modification recommended. DVT prophylaxis: Not indicated since patient has been started on therapeutic dose of Lovenox for a flutter. Charges/Coding Visit Charges Inpatient E&M: 74741 Init Hosp L3
[2020-11-09 03:13] LABS: BNP,B-Type NATRIURETIC PEPTIDE 533.4 pg/mL (0-100)
--- NOTE | 2020-11-09 03:51 | PCS.PANDOC ---
PANDEMIC DOCUMENTATION INITIATED: Date: 10/20/2020 Time: 190
[2020-11-09] MEDS: Enoxaparin 100 MG/ML Syringe 190 MG SC ×2 (04:29→21:38)
[2020-11-09] MEDS: Potassium Chloride Oral Tablet 20 MEQ 40 MEQ PO ×2 (04:29→16:30)
[2020-11-09] MEDS: Digoxin 250 MCG/ML Ampul 500 MCG IV (04:30)
[2020-11-09] MEDS: 0.9% Saline Lock 10 ML Syringe IV ×4 (04:47→16:31)
[2020-11-09 05:08] LABS: Troponin-I HS 67 pg/mL (3.0-78.0)
[2020-11-09] MEDS: Metoprolol Tartrate 25 MG Tablet 75 MG PO (06:17)
[2020-11-09 08:11] LABS: ALB/GLOB Ratio 0.8 RATIO (0.9-2.4); AST(SGOT) 24 U/L (15-37); Alanine Aminotransfer ALT/SGPT 43 U/L (16-61); Albumin, Serum 3.2 g/dL (3.2-5.0); Alkaline Phosphatase 38 U/L (45-117); Anion Gap 7 (5-15); BUN 12 mg/dL (7-18); BUN/Creat Ratio 12.2 RATIO (10-20); Calcium,Total 8.3 mg/dL (8.5-10.1); Chloride 103 mmol/L (98-107); Cholesterol 102 mg/dL (200); Creatinine, Serum 0.99 mg/dL (0.70-1.30); EST Glomerular Filtration Rate 88 mL/min (>60); Est Glom Filt Rate - Afr Amer 106 mL/min (>60); Estimated Creatinine Clearance 121.25 ml/min; Globulin 4.1 g/dL (2.2-4.2); Glucose 104 mg/dL (74-106); High Density Lipoprotein 36 mg/dL; Magnesium 1.7 mg/dL (1.6-2.6); Potassium 3.2 mmol/L (3.5-5.1); Protein, Total 7.3 g/dL (6.4-8.2); Sodium Level 136 mmol/L (136-145); Thyroid Stim Hormone (TSH) 0.24 uIU/mL (0.358-3.74); Triglycerides 65 mg/dL; Troponin-I HS 68 pg/mL (3.0-78.0); Very Low Density Lipoprotein 13 mg/dL (5-40)
[2020-11-09 09:15] LABS: Phosphorus 2.7 mg/dL (2.5-4.9)
[2020-11-09] MEDS: Aspirin 81 MG TAB.CHEW PO (10:58)
[2020-11-09] MEDS: Multivitamins,Therapeutic Tablet 1 TABLET PO (10:58)
[2020-11-09] MEDS: Potassium Chloride Oral Tablet 20 MEQ 60 MEQ PO (11:05)
[2020-11-09] MEDS: Omega-3 Acid Ethyl Esters 1 GM Capsule PO (14:17)
--- NOTE | 2020-11-09 15:06 | PCM.CONS.C ---
Assessment & Plan Assessment/Plan (1) Atrial fibrillation/flutter: PLAN: Rate is better. We will increase the metoprolol to100 mg p.o. twice daily. Due to history of LV dysfunction we will discontinue the Cardizem. (2) Chest pain: QUALIFIERS: Chest pain type: unspecified Qualified Code(s): R07.9 - Chest pain, unspecified PLAN: Patient does have history of LV dysfunction and at one point he was supposed to have coronary angiography as an outpatient but was lost to follow-up. Explained to the patient that he would benefit from coronary angiography. Explained the risks and benefits. If his creatinine stays stable he will probably undergo coronary angiography on Tuesday. (3) Acute CHF: QUALIFIERS: Heart failure type: systolic Qualified Code(s): I50.21 - Acute systolic (congestive) heart failure PLAN: Improved. May switch to p.o. Lasix 40 mg p.o. daily tomorrow. (4) Cardiomyopathy in disease classified elsewhere: PLAN: Will be reasonable to repeat his echocardiogram. HPI Consult Data Date of Consult: 11/09/20 HPI Narrative HPI Narrative: 44-year-old male admitted with chest tightness and A. flutter with RVR. Towards the end of last year patient was admitted with a flutter with RVR as well. At that time 1 out of 2 Covid tests were positive. He was also found to have an EF of 30%. His troponin was also elevated. He was treated medically with a plan to undergo coronary angiography as an outpatient. However he has not had this done yet as it appears that he was lost to follow-up. Review of systems: All systems reviewed. 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 on CPAP Home Medications lisinopril 40 mg PO QHS 01/11/20 [History Last Taken 01/10/20] omega 4-mxt-uqk-fish oil 1 cap PO DAILY 01/11/20 [History Last Taken 01/11/20] aspirin 81 mg PO DAILY@0800 #30 tab.chew 01/14/20 [Rx Last Taken Unknown] metoprolol tartrate 50 mg PO BID 11/09/20 [History Last Taken Unknown] multivitamin 1 tab PO DAILY 11/09/20 [History Last Taken Unknown] potassium chloride 20 meq PO DAILY 11/09/20 [History Last Taken Unknown] Allergy/AdvReac Type Severity Reaction Status Date / Time hydrochlorothiazide AdvReac Intermediate low K+ Verified 11/09/20 00:46 Family History (Updated 11/09/20 @ 03:[address] Shemar Del Real MD) Mother Hypertension Cancer ovarian Other Anxiety Hyperlipidemia Social History household members: none current occupational status: employed leisure activities: exercise Smoking Status: Former smoker alcohol intake: current alcohol intake frequency: a few times a week substance use type: marijuana and other details: occasional Physical Exam Const alert and oriented x3 Orientation / Consciousness: awake HEENT normocephalic Neck supple Resp normal respiratory effort Cardio S1 normal heart sound and S2 normal heart sound Cardio Narrative: Irregular rhythm Extremity no pedal edema Skin no rashes or lesions noted Neuro oriented x3 Psych mental status grossly normal Charges/Coding Visit Charges Inpatient E&M: 41198 Init Hosp L3 Objective Data Vital Signs: Vital Signs Temp Pulse Resp BP Pulse Ox 97.8 F 108 H 16 128/81 H 96 11/09/20 14:22 11/09/20 14:22 11/09/20 14:22 11/09/20 14:22 11/09/20 14:22 Oxygen Flow Rate (L/min) 2 Oxygen Delivery Method Room Air Weight: 421 lb 1.326 oz Body Mass Index (BMI) 49.9 Intake & Output: Intake and Output for Last 24 Hours 11/07/20 11/08/20 11/09/20 23:59 23:59 23:59 Intake Total 490 / 490 Output Total 2650 / 2650 Balance -2160 / -2160 Lab / Micro Data Result Diagrams: 11/09/20 00:55 11/09/20 07:07 Labs: Laboratory Results - last 24 hr 11/09/20 00:55: WBC 6.1, RBC 4.70, Hgb 13.5, Hct 41.1, MCV 87.4, MCH 28.7, MCHC 32.8, RDW Std Deviation 44.9 H, RDW Coeff of Steve 14.0, Plt Count 184, MPV 11.2, Immature Gran % (Auto) 0.300, Neut % (Auto) 76.9 H, Lymph % (Auto) 14.6 L, [place] % (Auto) 7.7, Eos % (Auto) 0.2, Baso % (Auto) 0.3, Absolute Neuts (auto) 4.7, Absolute Lymphs (auto) 0.89, Nucleated RBC % 0 11/09/20 00:55: Sodium 135 L, Potassium 3.5, Chloride 104, Carbon Dioxide 26.0, Anion Gap 5, BUN 13, Creatinine 1.06, Estim Creat Clear Calc 113.24, Est GFR (MDRD) Af Amer 98, Est GFR (MDRD) Non-Af 81, BUN/Creatinine Ratio 12.3, Glucose 101, Calcium 8.6, Troponin I High Sens 62 11/09/20 00:55: B-Natriuretic Peptide 533.4 H 11/09/20 04:25: Troponin I High Sens 67 11/09/20 07:07: Sodium 136, Potassium 3.2 L, Chloride 103, Carbon Dioxide 26.0, Anion Gap 7, BUN 12, Creatinine 0.99, Estim Creat Clear Calc 121.25, Est GFR (MDRD) Af Amer 106, Est GFR (MDRD) Non-Af 88, BUN/Creatinine Ratio 12.2, Glucose 104, Calcium 8.3 L, Magnesium 1.7, Total Bilirubin 1.90 H, AST 24, ALT 43, Alkaline Phosphatase 38 L, Troponin I High Sens 68, Total Protein 7.3, Albumin 3.2, Globulin 4.1, Albumin/Globulin Ratio 0.8 L, Triglycerides 65, Cholesterol 102, LDL Cholesterol 53, VLDL Cholesterol 13, HDL Cholesterol 36 L, TSH 0.24 L 11/09/20 07:07: Magnesium Cancelled 11/09/20 07:07: Phosphorus 2.7 Micro: Microbiology 11/09/20 01:49 Nasal Secretion SARS-CoV-2 Antigen (Rapid) - Final Cardiology Labs/Tests 11/09/20 00:55: WBC 6.1, RBC 4.70, Hgb 13.5, Hct 41.1, MCV 87.4, MCH 28.7, MCHC 32.8, Plt Count 184, MPV 11.2, Immature Gran % (Auto) 0.300, Neut % (Auto) 76.9 H, Lymph % (Auto) 14.6 L, [place] % (Auto) 7.7, Eos % (Auto) 0.2, Baso % (Auto) 0.3, Absolute Neuts (auto) 4.7, Nucleated RBC % 0 11/09/20 00:55: Sodium 135 L, Potassium 3.5, Chloride 104, Carbon Dioxide 26.0, Anion Gap 5, BUN 13, Creatinine 1.06, Est GFR (MDRD) Af Amer 98, Est GFR (MDRD) Non-Af 81, BUN/Creatinine Ratio 12.3, Glucose 101, Calcium 8.6 11/09/20 00:55: B-Natriuretic Peptide 533.4 H 11/09/20 07:07: Sodium 136, Potassium 3.2 L, Chloride 103, Carbon Dioxide 26.0, Anion Gap 7, BUN 12, Creatinine 0.99, Est GFR (MDRD) Af Amer 106, Est GFR (MDRD) Non-Af 88, BUN/Creatinine Ratio 12.2, Glucose 104, Calcium 8.3 L, Magnesium 1.7, Total Bilirubin 1.90 H, Triglycerides 65, Cholesterol 102, LDL Cholesterol 53, VLDL Cholesterol 13, HDL Cholesterol 36 L 11/09/20 07:07: Magnesium Cancelled 11/09/20 07:07: Phosphorus 2.7 Rhythm: EKG: ECHO: Stress Test: Cardiac Cath: PCI: CT Surgery: Holter monitor: EPS: PPM: CXR: Chest CT Scan: Radiography Diagnostic Testing: Radiology Impression Chest X-Ray 11/09/20 01:16 IMPRESSION: Cardiomegaly with mild pulmonary vascular congestion and questionable small right-sided pleural effusion. Electronically Signed: Gonzales Lamas MD at 2:02 EDT Tel , Service support ,
[2020-11-09] MEDS: Metoprolol Tartrate 100 MG Tablet PO (18:35)
[2020-11-09] MEDS: Lisinopril 40 MG Tablet PO (21:38)
[2020-11-10] VITALS (13 sets, daily range): BP systolic 128–152; BP diastolic 69–114; PULSE 64–120; RESP 18–20; TEMP 35.9–36.7; O2SAT 95–98
[2020-11-10] MEDS: Acetaminophen 325 MG Tablet 650 MG PO (00:32)
[2020-11-10] MEDS: dilTIAZem 60 MG Tablet PO ×3 (05:25→17:19)
[2020-11-10 06:24] LABS: Absolute Lymphocyte Count 1.79 X10^3/uL (0.83-4.51); Absolute Neutrophil Count 1.5 X10^3/uL (2.0-7.7); Basophil# 0.02 X10^3/uL; Basophil% 0.5 % (0-1); Eosinophil# 0.15 X10^3/uL; Eosinophils% 3.7 % (0-5); Hematocrit 43.6 % (40-54); Lymphocyte # 1.79 X10^3/ul (0.83-4.51); Lymphocyte % 44.1 % (19-41); Mean Corp Hgb Conc 32.1 g/dL (32-36); Mean Corpuscular Hgb 28.6 pg (27.0-32.0); Mean Platelet Vol. 11.9 fl (6.2-12.0); Monocyte# 0.58 X10^3/uL; Monocyte% 14.3 % (0-10); NRBC Flagged by Analyzer 0 % (0-5); Neutrophil # 1.51 X10^3/uL (2.7-7.7); Neutrophil % 37.2 % (47-70); Platelet Count 203 K/mm3 (150-450); RBC Distribution Width CV 14.1 % (11.6-14.6); RBC Distribution Width SD 45.9 fl (35.1-43.9); White Blood Count 4.1 K/mm3 (4.4-11.0)
[2020-11-10 06:57] LABS: Anion Gap 6 (5-15); BUN 15 mg/dL (7-18); BUN/Creat Ratio 15.8 RATIO (10-20); Calcium,Total 8.5 mg/dL (8.5-10.1); Chloride 105 mmol/L (98-107); Creatinine, Serum 0.95 mg/dL (0.70-1.30); EST Glomerular Filtration Rate 91 mL/min (>60); Est Glom Filt Rate - Afr Amer 111 mL/min (>60); Estimated Creatinine Clearance 126.36 ml/min; Glucose 87 mg/dL (74-106); Potassium 3.3 mmol/L (3.5-5.1); Sodium Level 139 mmol/L (136-145)
--- NOTE | 2020-11-10 08:54 | ECHOCS_ITS ---
Reason For Study: CHF Procedure This was a 2D Doppler, Color Flow transthoracic echocardiogram. The study was technically difficult. Due to body habitus. Contrast injection was performed. Exam performed portable in patient room. Left Ventricle Based upon the 2D echocardiographic and contrast enhanced images obtained there appears to be left ventricular dilatation with global left ventricular systolic dysfunction. The estimated ejection fraction is 20 %. Unable to assess diastolic dysfunction. Right Ventricle Normal RV size. Normal systolic function. Atria The left atrium is mildly enlarged. Normal right atrium. No doppler evidence for ASD. Mitral Valve There is no mitral annular calcification. Normal mitral valve. Trivial mitral valve insufficiency. Tricuspid Valve The tricuspid valve is not well visualized. Trivial tricuspid valve insufficiency. Unable to estimate RV systolic pressure/pulmonary artery pressure due to technically difficult study. Aortic Valve The aortic valve is not well visualized. Pulmonic Valve The pulmonic valve is not well visualized. Great Vessels The aortic root is not well visualized. Pericardium/Pleural No pericardial effusion. Medication Diluted definity 5.0ml given slow IV push to enhance endocardial definition. MMode/2D Measurements & Calculations LVIDd: 6.7 cm IVSd: 1.1 cm LAV(MOD-bp): 64.6 ml LVIDs: 5.8 cm LVPWd: 1.3 cm RVDd: 4.3 cm FS: 13.0 % LAV(MOD-bp) Indexed: 21.1 ml/m2 LAV(MOD-sp2): 78.4 ml LAV(MOD-sp4): 53.2 ml LA dimension(2D): 5.4 cm LA A4 area: 18.9 cm2 RA A4 area: 20.0 cm2 Doppler Measurements & Calculations MV E max khai: 84.0 cm/sec Ao V2 max: 108.9 cm/sec LV V1 max: 62.5 cm/sec Ao max P.7 mmHg LV V1 max P.6 mmHg ECHO/Echo Complete W/ Contrast Interpretation Summary The study was technically difficult. Contrast injection was performed. Based upon the 2D echocardiographic and contrast enhanced images obtained there appears to be left ventricular dilatation with global left ventricular systolic dysfunction. The estimated ejection fraction is 20 %. The left atrium is mildly enlarged. Trivial mitral valve insufficiency. Trivial tricuspid valve insufficiency. Unable to estimate RV systolic pressure/pulmonary artery pressure due to techni evan difficult study. Unable to assess diastolic dysfunction. Ordering Physician: Tiffany Hannah Referring Physician: [facility] Performed By: Sandra Oliver, LOVE, RVT
[2020-11-10] MEDS: Aspirin 81 MG TAB.CHEW PO (09:22)
[2020-11-10] MEDS: 0.9% Saline Lock 10 ML Syringe IV (09:22)
[2020-11-10] MEDS: Potassium Chloride Oral Tablet 20 MEQ 40 MEQ PO (09:22)
[2020-11-10] MEDS: Omega-3 Acid Ethyl Esters 1 GM Capsule PO (09:23)
[2020-11-10] MEDS: Digoxin 250 MCG Tablet PO (09:24)
[2020-11-10] MEDS: Metoprolol Tartrate 100 MG Tablet PO ×2 (09:24→21:42)
[2020-11-10] MEDS: Multivitamins,Therapeutic Tablet 1 TABLET PO (09:24)
[2020-11-10] MEDS: Furosemide 40 MG/4 ML Vial IV (09:25)
[2020-11-10] MEDS: Enoxaparin 100 MG/ML Syringe 190 MG SC ×2 (09:26→21:41)
--- NOTE | 2020-11-10 10:23 | PN.HOSP_ITS ---
Documented by User: Tiffany Hannah NP, [employer]-C 11/10/20 10:40 Subjective Subjective Patient seen and examined. Denies further shortness of breath, chest pain. Echo ordered. Plan for heart cath 11/11/2020. Objective Data Objective Data Vital Signs: Vital Signs Temp Pulse Resp BP Pulse Ox 98.1 F 64 18 128/69 H 97 11/10/20 09:15 11/10/20 09:24 11/10/20 09:15 11/10/20 09:24 11/10/20 09:15 Oxygen Flow Rate (L/min) 2 Oxygen Delivery Method Room Air Weight: 408 lb 4.737 oz Body Mass Index (BMI) 49.9 Intake & Output: Intake and Output for Last 24 Hours 11/08/20 11/09/20 11/10/20 23:59 23:59 23:59 Intake Total 640 / 1040 400 / 400 Output Total 5600 / 6375 775 / 775 Balance -4960 / -5335 -375 / -375 Lab / Micro Data Result Diagrams: 11/10/20 04:51 11/10/20 04:51 Labs: Laboratory Results - last 24 hr 11/10/20 04:51: WBC 4.1 L, RBC 4.90, Hgb 14.0, Hct 43.6, MCV 89.0, MCH 28.6, MCHC 32.1, RDW Std Deviation 45.9 H, RDW Coeff of Steve 14.1, Plt Count 203, MPV 11.9, Immature Gran % (Auto) 0.200, Neut % (Auto) 37.2 L, Lymph % (Auto) 44.1 H, [place] % (Auto) 14.3 H, Eos % (Auto) 3.7, Baso % (Auto) 0.5, Absolute Neuts (auto) 1.5 L, Absolute Lymphs (auto) 1.79, Nucleated RBC % 0 11/10/20 04:51: Sodium 139, Potassium 3.3 L, Chloride 105, Carbon Dioxide 28.0, Anion Gap 6, BUN 15, Creatinine 0.95, Estim Creat Clear Calc 126.36, Est GFR (MDRD) Af Amer 111, Est GFR (MDRD) Non-Af 91, BUN/Creatinine Ratio 15.8, Glucose 87, Calcium 8.5 Micro: Microbiology 11/09/20 01:49 Nasal Secretion SARS-CoV-2 Antigen (Rapid) - Final Physical Exam Const alert, oriented x3 and no apparent distress Orientation / Consciousness: awake, oriented to person, oriented to place and oriented to time Nutritional Appearance: obese HEENT normocephalic and moist oral mucous membranes Eyes PERRL, EOMs intact bilaterally and conjunctivae normal Neck no lymphadenopathy Resp normal respiratory effort and clear to auscultation bilaterally Cardio regular rate, regular rhythm and no murmurs Peripheral Pulses: pulses 2+ throughout GI normal to inspection, nondistended, normoactive bowel sounds, non-tender and non-distended Extremity normal to inspection General Extremity: edema bilateral lower extremity Details: mild Skin no rashes or lesions noted Lesions: no lesions Rashes: no rashes Trauma: no lacerations or abrasions Neuro CN's II-XII intact bilaterally, no focal motor deficits, no sensory deficits noted and deep tendon reflexes 2+ bilaterally Psych mental status grossly normal and affect normal Assessment & Plan Assessment/Plan (1) Atrial fibrillation/flutter: (2) Acute CHF: QUALIFIERS: Heart failure type: systolic Qualified Code(s): I50.21 - Acute systolic (congestive) heart failure (3) Chest pain: QUALIFIERS: Chest pain type: unspecified Qualified Code(s): R07.9 - Chest pain, unspecified PLAN: 1. Chest pain-troponin negative. Cardiology following. Plan for outpatient cath following admission January 2020 however patient lost follow- up. Plan for heart cath in a.m. Continue aspirin, metoprolol. Lipid profile fairly normal however if cath notable for CAD, will need initiation of statin. 2. Paroxysmal atrial fibrillation/flutter with RVR-initially diagnosed during prior admission. Patient states he had not been taking his Eliquis at discharge as he thought it was to be taken prior to heart cath. Rate controlled. Continue metoprolol. Therapeutic Lovenox. Will need new Rx for Eliquis at discharge. 3. Acute on chronic heart failure with reduced ejection fraction-BNP 533. Chest x-ray with mild congestion. Echocardiogram 01/2020 demonstrated an EF of 30%, moderate segmental systolic dysfunction, mild mitral valve insufficiency, mild tricuspid valve insufficiency, RVSP estimated to be 37 mmHg. Repeat echo pending. Placed on IV Lasix on admission. Transition to oral Lasix regimen. Strict I&O. Daily weight. 4. Mild hypokalemia-replaced per protocol. Trend BMP. 5 Hypertension-stable, continue lisinopril, digoxin, Cardizem, metoprolol. 6. CHRISTOPHER-continue home CPAP regimen. 7. Alcohol dependence-encouraged reduction/cessation. 8. Morbid obesity-encouraged diet and lifestyle modifications. Nutrition consult. DVT prophylaxis-Lovenox subcu, previously discharged on Eliquis however patient states he has not been taking. Will need new Rx at discharge as noted above. This patient was seen by TASIA DensonC under the supervision of Dr. Marino. Documented by User: Dr. Marcela Marino DO 11/10/20 12:46 Subjective Subjective This patient was seen in conjunction with Tiffany Hannah NP. The following is representation my independent history and physical exam. Please see below for addendum to the above. Patient states that he is feeling fine. He is having no chest pain or shortness of breath. Plan is for follow-up with cardiac catheterization tomorrow Objective Data Lab / Micro Data Result Diagrams: 11/10/20 04:51 11/10/20 04:51 Physical Exam Const alert, oriented x3 and no apparent distress Constitutional Narrative: Morbidly obese -[place] male, sitting up in bed, appears comfortable, very pleasant Resp normal respiratory effort, no retractions, no use of accessory muscles and clear to auscultation bilaterally Auscultation: Negative for crackles, rales, rhonchi or wheezes Cardio regular rate, S1 normal heart sound, S2 normal heart sound, no murmurs, no rub, no gallops, no clicks and no JVD Cardio Narrative: Irregular rhythm GI normal to inspection, nondistended, normoactive bowel sounds, soft to palpation, non-tender and non-distended Extremity no clubbing, cyanosis or edema Peripheral Pulses: Yes pulses 2+ throughout Neuro oriented x3, moves all extremities and no focal motor deficits Sensorium / Orientation: awake and alert Psych affect normal Psych Narrative: Very pleasant Assessment & Plan Assessment/Plan (1) Atrial fibrillation/flutter: (2) Acute CHF: QUALIFIERS: Heart failure type: systolic Qualified Code(s): I50.21 - Acute systolic (congestive) heart failure (3) Chest pain: QUALIFIERS: Chest pain type: unspecified Qualified Code(s): R07.9 - Chest pain, unspecified PLAN: Assessment: Chest pain-now resolved PAF/flutter Low TSH Acute on chronic heart failure with reduced ejection fraction-now compensated Hypokalemia Hypertension Morbid obesity CHRISTOPHER Alcohol dependency Plan: -Patient is currently in a flutter with controlled rate -Continue digoxin, Cardizem, metoprolol -Continue therapeutic Lovenox with plans to switch to Eliquis at discharge -Patient had been on Eliquis previously but was noncompliant -Left heart cath in a.m. -Repeat echocardiogram pending--> EF was 30% when previously evaluated in January -Continue oral Lasix and monitor clinically for recurrence of heart failure which is now compensated -P.o. potassium -Continue CPAP at night -Low TSH--> suspect euthyroid sick but will check free T4 in the a.m. Charges/Coding Visit Charges Inpatient E&M: 49511 Subs Hosp L2
--- NOTE | 2020-11-10 11:37 | PN.CARD_ITS ---
Subjective Subjective The patient states he did to the hospital because of concerns of chest tightness and shortness of breath/dyspnea. He believes his heart rate was under reasonably good control until recently when he felt it was elevated. He denies any near-syncope or syncope. He states he does feel somewhat better since being in the hospital. Objective Data Vital Signs: Vital Signs Temp Pulse Resp BP Pulse Ox 98.1 F 96 18 128/69 H 97 11/10/20 09:15 11/10/20 11:00 11/10/20 09:15 11/10/20 09:24 11/10/20 09:15 Oxygen Flow Rate (L/min) 2 Oxygen Delivery Method Room Air Weight: 408 lb 4.737 oz Body Mass Index (BMI) 49.9 Intake & Output: Intake and Output for Last 24 Hours 11/08/20 11/09/20 11/10/20 23:59 23:59 23:59 Intake Total 640 / 1040 400 / 400 Output Total 5600 / 6375 775 / 775 Balance -4960 / -5335 -375 / -375 Lab / Micro Data Result Diagrams: 11/10/20 04:51 11/10/20 04:51 Labs: Laboratory Results - last 24 hr 11/10/20 04:51: WBC 4.1 L, RBC 4.90, Hgb 14.0, Hct 43.6, MCV 89.0, MCH 28.6, MCHC 32.1, RDW Std Deviation 45.9 H, RDW Coeff of Steve 14.1, Plt Count 203, MPV 11.9, Immature Gran % (Auto) 0.200, Neut % (Auto) 37.2 L, Lymph % (Auto) 44.1 H, [place] % (Auto) 14.3 H, Eos % (Auto) 3.7, Baso % (Auto) 0.5, Absolute Neuts (auto) 1.5 L, Absolute Lymphs (auto) 1.79, Nucleated RBC % 0 11/10/20 04:51: Sodium 139, Potassium 3.3 L, Chloride 105, Carbon Dioxide 28.0, Anion Gap 6, BUN 15, Creatinine 0.95, Estim Creat Clear Calc 126.36, Est GFR (MDRD) Af Amer 111, Est GFR (MDRD) Non-Af 91, BUN/Creatinine Ratio 15.8, Glucose 87, Calcium 8.5 Cardiology Labs/Tests 11/10/20 04:51: WBC 4.1 L, RBC 4.90, Hgb 14.0, Hct 43.6, MCV 89.0, MCH 28.6, MCHC 32.1, Plt Count 203, MPV 11.9, Immature Gran % (Auto) 0.200, Neut % (Auto) 37.2 L, Lymph % (Auto) 44.1 H, [place] % (Auto) 14.3 H, Eos % (Auto) 3.7, Baso % (Auto) 0.5, Absolute Neuts (auto) 1.5 L, Nucleated RBC % 0 11/10/20 04:51: Sodium 139, Potassium 3.3 L, Chloride 105, Carbon Dioxide 28.0, Anion Gap 6, BUN 15, Creatinine 0.95, Est GFR (MDRD) Af Amer 111, Est GFR (MDRD) Non-Af 91, BUN/Creatinine Ratio 15.8, Glucose 87, Calcium 8.5 Rhythm: Atrial flutter EKG: Atrial flutter ECHO: 11?6?20 20 Interpretation Summary The study was technically difficult. Contrast injection was performed. Moderately dilated left ventricle. Moderate segmental systolic dysfunction (see wall motion). The estimated ejection fraction is 30 %. The left atrium is mildly enlarged. Mild (1+) mitral valve insufficiency. Mild tricuspid valve insufficiency. Mildly dilated aortic root. Right ventricular systolic pressure estimated to be 37 mmHg. There is evidence of diastolic dysfunction. Physical Exam Const alert, oriented x3 and no apparent distress Orientation / Consciousness: awake HEENT normocephalic, head/scalp atraumatic and hearing grossly normal bilaterally Eyes PERRL, EOMs intact bilaterally and conjunctivae normal Neck full ROM, supple and no JVD Resp Auscultation: diminished lung sounds bilateral lower Cardio Rhythm: abnormal rhythm irregularly irregular Heart Sounds: S1 normal and S2 normal GI normal to inspection, nondistended, normoactive bowel sounds Extremity no pedal edema Skin no rashes or lesions noted Psych mental status grossly normal Assessment & Plan Assessment/Plan (1) Atrial fibrillation/flutter: PLAN: The patient has atrial flutter. He will continue rate control therapy and anticoagulant therapy as deemed appropriate. He will continue with his noninvasive/invasive cardiovascular evaluation. As the patient's clinical course progresses consideration will be given as to a future attempt at regaining sinus rhythm which may include medical therapy, synchronized biphasic DC cardioversion, or eventual EP consultation for EPS/RFA. 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 There is been concerned this may be rhythm/rate related. At the present time the patient will continue to be followed. He will continue medical therapy for his underlying rate/rhythm related issues. He is being referred for further evaluation with diagnostic cardiac catheterization, as has been recommended in the past based upon his previous hospitalization and objective findings with abnormal troponin I levels, to further define whether he has any underlying CAD contributing to the cardiomyopathy, etc. (3) Acute CHF: QUALIFIERS: Heart failure type: systolic Qualified Code(s): I50.21 - Acute systolic (congestive) heart failure PLAN: Upon admission there were concerns by the admitting team that the patient had acute CHF. He is being treated medically. He states overall he does feel somewhat better since being in the hospital. (4) HTN (hypertension): QUALIFIERS: Hypertension type: unspecified Qualified Code(s): I10 - Essential (primary) hypertension PLAN: He will need continued medical management and follow-up with adjustment of medications accordingly. (5) CHRISTOPHER on CPAP: PLAN: He will need to continue his CHRISTOPHER therapy with his CPAP device. Addt'l Comments The patient's case was discussed and reviewed with the patient as well as with Dr. Marino. This note was generated using a voice recognition system and there may be incorrect words, spelling or punctuation that were not noted when reviewing the office note prior to saving. Procedure Criteria Type of Procedure Procedure Type: Elective Elective Risks - COVID COVID Risk Discussion: The surgeon/proceduralist and patient have discussed in detail the risk of exposure to and/or potential harm posed by the COVID-19 virus with having a surgery/procedure at this time versus the risk of delaying the surgery/procedure. It is not possible to know either the risk of delaying the surgery or procedure or chance of getting an infection with perfect accuracy, but a joint decision was made between the patient and the surgeon/proceduralist to proceed at this time with the scheduled surgery/procedure as indicated on the consent form.
[2020-11-10 13:28] LABS: T4 Free Direct 1.24 ng/dL (0.76-1.46)
[2020-11-10] MEDS: Lisinopril 40 MG Tablet PO (21:42)
[2020-11-11] VITALS (18 sets, daily range): BP systolic 113–158; BP diastolic 66–95; PULSE 70–99; RESP 14–18; TEMP 36.4–37; O2SAT 95–99
[2020-11-11] MEDS: dilTIAZem 60 MG Tablet PO ×3 (00:22→11:59)
[2020-11-11] MEDS: Aspirin 81 MG TAB.CHEW PO (05:58)
[2020-11-11] MEDS: 0.9% Saline Lock 10 ML Syringe IV (05:58)
[2020-11-11] MEDS: Metoprolol Tartrate 100 MG Tablet PO ×2 (05:58→21:42)
[2020-11-11] MEDS: Digoxin 250 MCG Tablet PO (05:58)
[2020-11-11] MEDS: 0.9% Normal Saline 1,000 ML 15 ML IV (05:59)
--- NOTE | 2020-11-11 06:02 | EKG12_ITS ---
Test Reason : Blood Pressure : / mmHG Vent. Rate : 072 BPM Atrial Rate : 288 BPM P-R Int : 000 ms QRS Dur : 088 ms QT Int : 410 ms P-R-T Axes : 260 018 -34 degrees QTc Int : 448 ms Atrial flutter Abnormal ECG Confirmed by AYLIN NAM, YOLANDA ([id number]), digital editor JOSEPHINE COHEN ([id number]) on 11/12/2020 9:28:51 AM Referred By: YURI Confirmed By:YOLANDA VIERA MD
[2020-11-11 06:34] LABS: Absolute Lymphocyte Count 1.92 X10^3/uL (0.83-4.51); Absolute Neutrophil Count 2.1 X10^3/uL (2.0-7.7); Basophil# 0.03 X10^3/uL; Basophil% 0.6 % (0-1); Eosinophil# 0.17 X10^3/uL; Eosinophils% 3.5 % (0-5); Hematocrit 44.8 % (40-54); Hemoglobin 14.3 g/dL (13.0-16.5); Lymphocyte # 1.92 X10^3/ul (0.83-4.51); Lymphocyte % 40.1 % (19-41); Mean Corp Hgb Conc 31.9 g/dL (32-36); Mean Corpuscular Hgb 28.4 pg (27.0-32.0); Mean Corpuscular Volume 88.9 fL (80-94); Monocyte# 0.55 X10^3/uL; Monocyte% 11.5 % (0-10); NRBC Flagged by Analyzer 0 % (0-5); Neutrophil % 43.9 % (47-70); Platelet Count 218 K/mm3 (150-450); RBC Distribution Width CV 13.7 % (11.6-14.6); RBC Distribution Width SD 44.2 fl (35.1-43.9); Red Blood Count 5.04 M/mm3 (4.6-6.2); White Blood Count 4.8 K/mm3 (4.4-11.0)
[2020-11-11 06:57] LABS: Anion Gap 6 (5-15); BUN 17 mg/dL (7-18); BUN/Creat Ratio 19.1 RATIO (10-20); Calcium,Total 8.8 mg/dL (8.5-10.1); Chloride 107 mmol/L (98-107); Creatinine, Serum 0.89 mg/dL (0.70-1.30); EST Glomerular Filtration Rate 99 mL/min (>60); Est Glom Filt Rate - Afr Amer 119 mL/min (>60); Estimated Creatinine Clearance 134.87 ml/min; Glucose 92 mg/dL (74-106); Potassium 3.5 mmol/L (3.5-5.1); Sodium Level 139 mmol/L (136-145)
[2020-11-11 07:05] LABS: International Normalized Ratio 1.2; Prothrombin Time (Protime)PT. 14.2 SECONDS (11.7-14.9)
--- NOTE | 2020-11-11 09:36 | CASEMGMT ---
, According to the [employer] website, the following are in-network tertiary facilities: [facility], [place], [facility], [facility], [facility], [facility], and . Ilana THOMAS CM
--- NOTE | 2020-11-11 10:05 | CL.D_ITS ---
Patient Name: VICK PATTEN Study Date: 11/11/2020 Performing: Lc Glass MD Ht: 77 inches 196 cm : 1975 Wt: 408.4 lbs 185 kg Age: 44 Gender: male BSA: 3.03 PROCEDURE(S) PERFORMED XI65-SMF/COR/LV CLINICAL PROFILE AND INDICATIONS Indications: Suspected CAD, Cardiac Arrythmia, Cardiomyopathy Heart Failure: NYHA Class: 3, Newly Diagnosed: Yes, Heart Failure Type: Systolic Stress/Imaging Stress/Image Study Performed: No Angina Classification Anginal Classification w/in 2 Weeks: Anginal Equivalent Dyspnea CAD Presentations: Other: chest pain; dyspnea CONCLUSIONS Elevated Left Ventricular End Diastolic Pressure Global LV systolic dysfunction- Moderate LVEF: by LV gram 30 % LAD: Distal: 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 Espinoza of [facility]: Recommendation for medical th erapy and no PCI of the LAD Distal intramyocardial bridging segment DESCRIPTION OF PROCEDURE The patient arrived to the procedure lab. The risks and benefits of the procedure as well as a full d escription of our services here and current unavailability of surgical backup were fully explained to the patient and/or their significant other prior to the catheterization. The Timeout was completed, verifying the correct patient and procedure. The patient's procedural site was prepped and draped in the usual fashion. Local anesthetic was given subcutaneously to right radial region with Lidocaine 2% . Using a modified Seldinger technique, arterial access was obtained via the right radial artery, a 6 Fr sheath was inserted. Right Coronary Artery selective angiography was then performed in multiple v iews using a 5 Fr. 4.0 [place] catheter. Left Coronary Artery selective angiography was performed in mu ltiple views using a 5 Fr. JL3.5 catheter. Left Ventriculography was performed in FU projection usin g a 4 Fr. Pigtail catheter. 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 during systole CIRCUMFLEX ARTERY: Angiographically normal RIGHT CORONARY ARTERY: Angiographically normal AORTIC ROOT: Angiographically normal COMPLICATIONS No Complications PROCEDURE MEDICATIONS Versed 1 mg IV Fentanyl 50 mcg IV Oxygen: 2 L/min via nasal cannula Heparin given IA 11/11/2020 08:18:47 Verapamil 2.5mg, Ntg 100mcgs, 3000 units of Heparin given IA 11/11/2020 08:18:47 SUMMARY OF HEMODYNAMIC DATA Time AIR REST ECG 07:55:07 Art 140/82 (98) 08:11:12 AO 120/92 (105) SA 08:20:36 LV 139/0, 28 08:31:59 LV 137/-1, 28 08:32:06 LV 136/1, 31 08:33:04 LV 138/0, 30 08:33:10 LVp 138/-2, 28 08:33:23 AOp 127/90 (105) 08:33:28 Signed By Lc Glass MD On 11/11/2020 10:03:46 Lc Glass MD
[2020-11-11] MEDS: 0.9% Normal Saline 1,000 ML 50 ML IV (10:15)
[2020-11-11] MEDS: Furosemide 40 MG Tablet PO (10:29)
[2020-11-11] MEDS: Omega-3 Acid Ethyl Esters 1 GM Capsule PO (10:30)
[2020-11-11] MEDS: Potassium Chloride Oral Tablet 20 MEQ 40 MEQ PO (10:30)
[2020-11-11] MEDS: Multivitamins,Therapeutic Tablet 1 TABLET PO (10:30)
--- NOTE | 2020-11-11 11:18 | PCM.PN.HOSP ---
Documented by User: Joss WHITTINGTON 11/11/20 11:32 Subjective Subjective Patient is a 44-year-old male comfortably resting in bed, alert and orient x3. Patient denies development of any new symptoms overnight. Denies chest pain, shortness of breath, palpitations, hemoptysis, sputum production, fever, chills, N/V/D. Objective Data Objective Data Vital Signs: Vital Signs Temp Pulse Resp BP Pulse Ox 98.3 F 75 16 123/74 H 96 11/11/20 06:03 11/11/20 11:00 11/11/20 11:00 11/11/20 11:00 11/11/20 11:00 Oxygen Flow Rate (L/min) 2 Oxygen Delivery Method Room Air Weight: 407 lb 10.155 oz Body Mass Index (BMI) 49.9 Intake & Output: Intake and Output for Last 24 Hours 11/09/20 11/10/20 11/11/20 23:59 23:59 23:59 Intake Total 640 / 1040 1000 / 1600 694 / 694 Output Total 5600 / 6375 1625 / 2375 1150 / 1150 Balance -4960 / -5335 -625 / -775 -456 / -456 Lab / Micro Data Result Diagrams: 11/11/20 06:20 11/11/20 06:20 Labs: Laboratory Results - last 24 hr 11/10/20 04:51: Free T4 1.24 11/11/20 06:20: WBC 4.8, RBC 5.04, Hgb 14.3, Hct 44.8, MCV 88.9, MCH 28.4, MCHC 31.9 L, RDW Std Deviation 44.2 H, RDW Coeff of Steve 13.7, Plt Count 218, MPV 11.0, Immature Gran % (Auto) 0.400, Neut % (Auto) 43.9 L, Lymph % (Auto) 40.1, [place] % (Auto) 11.5 H, Eos % (Auto) 3.5, Baso % (Auto) 0.6, Absolute Neuts (auto) 2.1, Absolute Lymphs (auto) 1.92, Nucleated RBC % 0 11/11/20 06:20: Sodium 139, Potassium 3.5, Chloride 107, Carbon Dioxide 26.0, Anion Gap 6, BUN 17, Creatinine 0.89, Estim Creat Clear Calc 134.87, Est GFR (MDRD) Af Amer 119, Est GFR (MDRD) Non-Af 99, BUN/Creatinine Ratio 19.1, Glucose 92, Calcium 8.8 11/11/20 06:20: PT 14.2, INR 1.2 Micro: Microbiology 11/09/20 01:49 Nasal Secretion SARS-CoV-2 Antigen (Rapid) - Final Radiography Diagnostic Testing: Radiology Impression Echocardiogram 11/10/20 08:54 Interpretation Summary The study was technically difficult. Contrast injection was performed. Based upon the 2D echocardiographic and contrast enhanced images obtained there appears to be left ventricular dilatation with global left ventricular systolic dysfunction. The estimated ejection fraction is 20 %. The left atrium is mildly enlarged. Trivial mitral valve insufficiency. Trivial tricuspid valve insufficiency. Unable to estimate RV systolic pressure/pulmonary artery pressure due to technically difficult study. Unable to assess diastolic dysfunction. Ordering Physician: Tiffany Hannah Referring Physician: [facility] Performed By: Sandra Oliver, LOVE, RVT Physical Exam Const alert, oriented x3 and no apparent distress HEENT head/scalp atraumatic, moist oral mucous membranes and oropharynx normal Head and Scalp: normocephalic Eyes PERRL, EOMs intact bilaterally and conjunctivae normal Neck no lymphadenopathy, supple and no JVD Resp normal respiratory effort, no retractions and no use of accessory muscles Cardio regular rate, regular rhythm and no murmurs GI normal to inspection, nondistended, normoactive bowel sounds, soft to palpation and non-tender Extremity normal to inspection, full ROM and no clubbing, cyanosis or edema Skin no rashes or lesions noted, no wounds and skin turgor normal Neuro CN's II-XII intact bilaterally Psych affect normal Assessment & Plan Assessment/Plan (1) Acute CHF: QUALIFIERS: Heart failure type: systolic Qualified Code(s): I50.21 - Acute systolic (congestive) heart failure (2) Atrial fibrillation/flutter: PLAN: Day 2 Discharge planning: Patient to potentially discharge home on 11/12/2020 if stable on cardiac monitoring overnight. No home health care needs or additional therapies identified. 1) chest pain/ACS rule out Cardiac catheterization completed on 11/11 findings as follows elevated left ventricular end-diastolic pressure, moderate global left ventricular systolic dysfunction, LVEF of 30% and angiographic findings consistent with intramyocardial bridge with compression during systole in the left anterior descending artery. Cardiology following and recommendations are for continue medical therapy, no surgical intervention indicated at this time. Plan; remain admitted overnight for cardiac telemetry monitoring, Eliquis initiated per cardiology, continue diltiazem, metoprolol and aspirin. 2) paroxysmal atrial fibrillation/flutter with RVR Patient on metoprolol at home for rate control. Patient has not been taking his Eliquis due to running out of his current prescription. Plan; as above, Eliquis initiated, continue metoprolol, Cardizem initiated. 3) acute on chronic CHF exacerbation with reduced ejection fraction Currently satting 96% on room air, not in any acute distress. BNP on admission was 533. Echocardiogram obtained on 11/10 demonstrated left ventricular dilatation with global left ventricular systolic dysfunction, an estimated EF of 20% and indeterminate RVSP and diastolic dysfunction. Ejection fraction appears worse from previous study completed in 01/2020. Cardiology following. Plan; continue p.o. Lasix, continue lisinopril and continue metoprolol, strict I's and O's, daily weights. 4) hypokalemia Currently 3.5, continue to monitor BMP. 5) HTN Stable, continue lisinopril, Cardizem and metoprolol. 6) CHRISTOPHER Continue home CPAP regimen. 7) morbid obesity Therapeutic lifestyle changes and weight loss advised. Dietitian consult ordered. DVT prophylaxis - Eliquis Patient seen by Joss Weiss PA-C, under the supervision of Dr. Marino. Documented by User: Dr. Marcela Marino DO 11/11/20 15:08 Subjective Subjective This patient was seen in conjunction with NELSY Nogueira. The following is representation my independent history and physical exam. Please see below for any none the above. Patient reports he is feeling fine. Has just arrived back from cardiac catheterization. We discussed the results of the heart catheterization and his need for alcohol cessation and continued rate control with careful follow-up after discharge. He denies any current issues. Objective Data Lab / Micro Data Result Diagrams: 11/11/20 06:20 11/11/20 06:20 Physical Exam Const alert, oriented x3 and no apparent distress Constitutional Narrative: Morbidly obese -Slov[place] male, sitting up in bed, appears comfortable, very pleasant Orientation / Consciousness: awake, oriented to person, oriented to place and oriented to time Nutritional Appearance: morbidly obese HEENT normocephalic, head/scalp atraumatic and moist oral mucous membranes Head and Scalp: normocephalic Resp normal respiratory effort, no retractions, no use of accessory muscles and clear to auscultation bilaterally Auscultation: Negative for crackles, rales, rhonchi or wheezes Cardio regular rate, regular rhythm, S1 normal heart sound, S2 normal heart sound, no murmurs, no rub, no gallops, no clicks and no JVD Cardio Narrative: Irregular rhythm Peripheral Pulses: pulses 2+ throughout GI normal to inspection, nondistended, normoactive bowel sounds, soft to palpation, non-tender and non-distended Extremity normal to inspection and no clubbing, cyanosis or edema Peripheral Pulses: Yes pulses 2+ throughout Skin Lesions: no lesions Rashes: no rashes Trauma: no lacerations or abrasions Neuro oriented x3, CN's II-XII intact bilaterally, moves all extremities, no focal motor deficits, no sensory deficits noted and deep tendon reflexes 2+ bilaterally Sensorium / Orientation: awake and alert Psych mental status grossly normal and affect normal Psych Narrative: Very pleasant Assessment & Plan Assessment/Plan (1) Chest pain: QUALIFIERS: Chest pain type: unspecified Qualified Code(s): R07.9 - Chest pain, unspecified PLAN: Assessment: Chest pain-now resolved PAF/flutter LAD myocardial bridge Low TSH Acute on chronic heart failure with reduced ejection fraction-now compensated Hypokalemia-resolved Hypertension Morbid obesity CHRISTOPHER Alcohol dependency Plan: -Patient is currently in a flutter with controlled rate -Digoxin was discontinued, -Continue Cardizem, metoprolol -Eliquis reinitiated -Left heart catheterization was found to have no coronary disease but the patient was found to have an LAD myocardial bridge -Repeat echocardiogram done on 11/10/2020 shows an EF of 20%--> EF was 30% when previously evaluated in January -Cardiomyopathy may be related to rate versus alcohol use -I discussed the importance of alcohol cessation with the patient and we discussed the importance of continued follow-up with cardiology -Patient may need to have ICD placed if EF remains depressed despite maximal goal-directed therapy -Continue oral Lasix and monitor clinically for recurrence of heart failure which is now compensated -P.o. potassium -Continue CPAP at night -Low TSH--> free T4 was within normal limits at 1.24 therefore I suspect his low TSH is related to euthyroid sick syndrome -Would recommend 1500 cc fluid restriction at discharge -Daily weights upon discharge -Patient blood pressures are still up despite Cardizem 60 mg every 6 hours, lisinopril 40 mg nightly, metoprolol 100 mg twice daily and Lasix 40 mg p.o. daily ` -Improved blood pressure control would be advantageous--> will add Isordil 10 mg twice daily to assist with improved blood pressure control Charges/Coding Visit Charges Inpatient E&M: 70302 Subs Hosp L2
--- NOTE | 2020-11-11 11:25 | CASEMGMT ---
WILLIAM ANDERSON assessment: Face to Face with patient for initial transition planning/care coordination assessment. WILLIAM ANDERSON introduced self and role at [facility], pt voices understanding and consents to assessment. Pt is sitting up in bed in no distress on room air. Pt is A/Ox4 and answers all questions appropriately. Care providers, pharmacy, and demographics verified. Presentation: Pt states hx chest pressure/palpitations for a few days-hx Afib Admitting dx: Afib RVR PCP: Neli Canales Specialists: Pt states needs to establish with pulmonary to get cpap changed from [facility]. Pt was active with [place] [facility] at one point. Preferred Pharmacy: [facility] Insurance: Mult[employer] Prescription Benefit: Pt states does not have Rx coverage and is interested in resources for same. E.Nahun BROWN aware, voices understanding. Living Will/HPOA: Pt states does not have LW/HPOA and declines AD info. LNOK: Chica Patricia, mother Living Arrangements: Pt states lives alone in 2nd floor apt and states no concerns at home. Pt is normally independent with ADL's. Transportation: Pt states drives self and states no transportation concerns. DME/HHC: Pt states has a cpap thru [facility] and states no need for any further DME. Pt states no hx of HHC or SNF in the past. Pt states no concerns with going home at time of discharge. 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 Pt states does not smoke cigarettes but does drink ETOH occasionally. Pt states no further concerns/needs. CM to follow for any further discharge planning/needs. Advised pt to ask for CM if any further questions/concerns/needs arise, voices understanding. Pt Goal: Home Plan[place] WILLIAM ANDERSON
--- NOTE | 2020-11-11 14:06 | CASEMGMT ---
STEPHANIE met with patient. Introduced self and role at [facility]. STEPHANIE provided him with information on prescription assistance programs including [employer], needymeds.org, and People [employer] People. He already new about [employer]. Iris Garnica MSW HARDIK
--- NOTE | 2020-11-11 17:29 | PCM.PN.CARD ---
Subjective Subjective The patient is now status post diagnostic cardiac catheterization. He appears to be resting comfortably with no acute symptoms. Objective Data Vital Signs: Vital Signs Temp Pulse Resp BP Pulse Ox 97.6 F L 76 18 113/86 H 98 11/11/20 16:35 11/11/20 16:35 11/11/20 16:35 11/11/20 16:35 11/11/20 16:35 Oxygen Flow Rate (L/min) 2 Oxygen Delivery Method CPAP Weight: 407 lb 10.155 oz Body Mass Index (BMI) 49.9 Intake & Output: Intake and Output for Last 24 Hours 11/09/20 11/10/20 11/11/20 23:59 23:59 23:59 Intake Total 640 / 1040 1000 / 1600 1374 / 1374 Output Total 5600 / 6375 1625 / 2375 1525 / 1525 Balance -4960 / -5335 -625 / -775 -151 / -151 Lab / Micro Data Result Diagrams: 11/11/20 06:20 11/11/20 06:20 Labs: Laboratory Results - last 24 hr 11/11/20 06:20: WBC 4.8, RBC 5.04, Hgb 14.3, Hct 44.8, MCV 88.9, MCH 28.4, MCHC 31.9 L, RDW Std Deviation 44.2 H, RDW Coeff of Steve 13.7, Plt Count 218, MPV 11.0, Immature Gran % (Auto) 0.400, Neut % (Auto) 43.9 L, Lymph % (Auto) 40.1, [place] % (Auto) 11.5 H, Eos % (Auto) 3.5, Baso % (Auto) 0.6, Absolute Neuts (auto) 2.1, Absolute Lymphs (auto) 1.92, Nucleated RBC % 0 11/11/20 06:20: Sodium 139, Potassium 3.5, Chloride 107, Carbon Dioxide 26.0, Anion Gap 6, BUN 17, Creatinine 0.89, Estim Creat Clear Calc 134.87, Est GFR (MDRD) Af Amer 119, Est GFR (MDRD) Non-Af 99, BUN/Creatinine Ratio 19.1, Glucose 92, Calcium 8.8 11/11/20 06:20: PT 14.2, INR 1.2 Cardiology Labs/Tests 11/11/20 06:20: WBC 4.8, RBC 5.04, Hgb 14.3, Hct 44.8, MCV 88.9, MCH 28.4, MCHC 31.9 L, Plt Count 218, MPV 11.0, Immature Gran % (Auto) 0.400, Neut % (Auto) 43.9 L, Lymph % (Auto) 40.1, [place] % (Auto) 11.5 H, Eos % (Auto) 3.5, Baso % (Auto) 0.6, Absolute Neuts (auto) 2.1, Nucleated RBC % 0 11/11/20 06:20: Sodium 139, Potassium 3.5, Chloride 107, Carbon Dioxide 26.0, Anion Gap 6, BUN 17, Creatinine 0.89, Est GFR (MDRD) Af Amer 119, Est GFR (MDRD) Non-Af 99, BUN/Creatinine Ratio 19.1, Glucose 92, Calcium 8.8 11/11/20 06:20: PT 14.2, INR 1.2 Rhythm: Atrial letter Cardiac Cath: CONCLUSIONS Elevated Left Ventricular End Diastolic Pressure Global LV systolic dysfunction- Moderate LVEF: by LV gram 30 % LAD: Distal: 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 Espinoza of [facility]: Recommendation for medical therapy and no PCI of the LAD Distal intramyocardial bridging segment DESCRIPTION OF PROCEDURE The patient arrived to the procedure lab. The risks and benefits of the procedure as well as a full description of our services here and current unavailability of surgical backup were fully explained to the patient and/or their significant other prior to the catheterization. The Timeout was completed, verifying the correct patient and procedure. The patient's procedural site was prepped and draped in the usual fashion. Local anesthetic was given subcutaneously to right radial region with Lidocaine 2%. Using a modified Seldinger technique, arterial access was obtained via the right radial artery, a 6Fr sheath was inserted. Right Coronary Artery selective angiography was then performed in multiple views using a 5 Fr. 4.0 Blythe catheter. Left Coronary Artery selective angiography was performed in multiple views using a 5 Fr. JL3.5 catheter. Left Ventriculography was performed in FU projection using a 4 Fr. Pigtail catheter. 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 during systole CIRCUMFLEX ARTERY: Angiographically normal RIGHT CORONARY ARTERY: Angiographically normal AORTIC ROOT: Angiographically normal Physical Exam Const alert, oriented x3, no apparent distress and healthy appearing Orientation / Consciousness: awake HEENT normocephalic, head/scalp atraumatic and hearing grossly normal bilaterally Eyes PERRL, EOMs intact bilaterally and conjunctivae normal Neck full ROM, supple and no JVD Resp clear to auscultation bilaterally Cardio regular rate, S1 normal heart sound and S2 normal heart sound GI normal to inspection, nondistended, normoactive bowel sounds Extremity normal to inspection General Extremity: edema bilateral lower extremity Details: trace Peripheral Pulses: Yes radial pulses present right (No bruits: No hematoma) 2+ Skin no rashes or lesions noted Assessment & Plan Assessment/Plan (1) Atrial fibrillation/flutter: PLAN: The patient has atrial flutter. He will continue rate control therapy and anticoagulant therapy as deemed appropriate. He will continue with his noninvasive/invasive cardiovascular evaluation. As the patient's clinical course progresses consideration will be given as to a future attempt at regaining sinus rhythm which may include medical therapy, synchronized biphasic DC cardioversion-once he is been on anticoagulation therapy for an adequate period of time, or eventual EP consultation for EPS/RFA. 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 There is been concerned this may be rhythm/rate related. At the present time the patient will continue to be followed. He will continue medical therapy for his underlying rate/rhythm related issues. His cardiac catheterization did not demonstrate angiographically significant appearing CAD to explain his underlying cardiomyopathy. If over time, despite medical therapy, reassessment/therapy for his underlying atrial dysrhythmia, etc., his LV systolic function/LVEF does not improve then he will need to be considered for a primary prevention ICD. (3) Acute CHF: QUALIFIERS: Heart failure type: systolic Qualified Code(s): I50.21 - Acute systolic (congestive) heart failure PLAN: Upon admission there were concerns by the admitting team that the patient had acute CHF. He is being treated medically. (4) Myocardial bridge: PLAN: The patient was found in the cardiac catheterization laboratory to have a distal LAD myocardial bridging segment. There was notation of compression of the portion of the LAD during systole. There was notation of ARISTEO-3 flow during diastole. His case was reviewed with interventional cardiology. The recommendation was continued conservative medical management with no immediate plans for any form of percutaneous or surgical based revascularization. (5) HTN (hypertension): QUALIFIERS: Hypertension type: unspecified Qualified Code(s): I10 - Essential (primary) hypertension PLAN: He will need continued medical management and follow-up with adjustment of medications accordingly. (6) CHRISTOPHER on CPAP: PLAN: He will need to continue his CHRISTOPHER therapy with his CPAP device. He does state, with respect to his device, he believes it is on recall. He states he has not been evaluated by anybody for his CHRISTOPHER in quite some time. Thus he should be considered for future pulmonary consultation to assist in his CHRISTOPHER/CPAP therapy. Addt'l Comments The patient's case was discussed and reviewed with the patient and Dr. Marino. This note was generated using a voice recognition system and there may be incorrect words, spelling or punctuation that were not noted when reviewing the office note prior to saving.
[2020-11-11] MEDS: APIXABAN 5 MG TABLET PO (21:41)
[2020-11-11] MEDS: Lisinopril 40 MG Tablet PO (21:41)
[2020-11-11] MEDS: dilTIAZem CD 120 MG Capsule PO (21:42)
[2020-11-12 03:05] VITALS: BP 123/84; PULSE 72; RESP 16; TEMP 36.5; O2SAT 99
[2020-11-12 05:58] LABS: Absolute Lymphocyte Count 1.97 X10^3/uL (0.83-4.51); Absolute Neutrophil Count 1.8 X10^3/uL (2.0-7.7); Basophil# 0.03 X10^3/uL; Basophil% 0.7 % (0-1); Eosinophil# 0.18 X10^3/uL; Eosinophils% 4.1 % (0-5); Hematocrit 44.1 % (40-54); Lymphocyte # 1.97 X10^3/ul (0.83-4.51); Lymphocyte % 45.1 % (19-41); Mean Corp Hgb Conc 31.7 g/dL (32-36); Mean Corpuscular Hgb 28.1 pg (27.0-32.0); Mean Corpuscular Volume 88.6 fL (80-94); Mean Platelet Vol. 10.9 fl (6.2-12.0); Monocyte# 0.43 X10^3/uL; Monocyte% 9.8 % (0-10); NRBC Flagged by Analyzer 0 % (0-5); Neutrophil # 1.75 X10^3/uL (2.7-7.7); Neutrophil % 40.1 % (47-70); Platelet Count 242 K/mm3 (150-450); RBC Distribution Width CV 13.8 % (11.6-14.6); RBC Distribution Width SD 44.4 fl (35.1-43.9); Red Blood Count 4.98 M/mm3 (4.6-6.2); White Blood Count 4.4 K/mm3 (4.4-11.0)
[2020-11-12 06:26] LABS: Anion Gap 6 (5-15); BUN 15 mg/dL (7-18); BUN/Creat Ratio 16.7 RATIO (10-20); Calcium,Total 8.6 mg/dL (8.5-10.1); Chloride 107 mmol/L (98-107); EST Glomerular Filtration Rate 98 mL/min (>60); Est Glom Filt Rate - Afr Amer 118 mL/min (>60); Estimated Creatinine Clearance 133.38 ml/min; Glucose 87 mg/dL (74-106); Potassium 3.6 mmol/L (3.5-5.1); Sodium Level 140 mmol/L (136-145)
[2020-11-12 07:00] VITALS: PULSE 74
[2020-11-12 09:15] VITALS: O2SAT 97
[2020-11-12 09:25] VITALS: BP 116/76; PULSE 71; RESP 16; TEMP 36.8; O2SAT 97
[2020-11-12] MEDS: Potassium Chloride Oral Tablet 20 MEQ 40 MEQ PO (09:29)
[2020-11-12] MEDS: Aspirin 81 MG TAB.CHEW PO (09:29)
[2020-11-12] MEDS: dilTIAZem CD 120 MG Capsule PO (09:29)
[2020-11-12] MEDS: Multivitamins,Therapeutic Tablet 1 TABLET PO (09:29)
[2020-11-12] MEDS: Isosorbide Mononitrate 30 MG Tablet PO (09:29)
[2020-11-12 09:30] VITALS: BP 116/76; PULSE 71
[2020-11-12] MEDS: Metoprolol Tartrate 100 MG Tablet PO (09:30)
[2020-11-12] MEDS: Furosemide 40 MG Tablet PO (09:30)
[2020-11-12] MEDS: Omega-3 Acid Ethyl Esters 1 GM Capsule PO (09:30)
[2020-11-12] MEDS: APIXABAN 5 MG TABLET PO (09:30)
--- NOTE | 2020-11-12 10:55 | DCINST_ITS ---
Discharge Instructions Diet Discharge Diet: No restrictions Activity Discharge Activity: Return to Normal Activity Weight Bearing Status: Weight bearing as tolerated Dressing / Incision Call your doctor if you observe: Fever of 101 or Higher, Numbness or Tingling, Shortness of breath, Dizziness, Chest pain, Increased palpitations (irregular heartbeat) and Calf discomfort Follow Up Care Please Follow Up With: Primary care provider When: Within the next two weeks. Test Results: Test results from this visit will be discussed in further detail at your follow-up appointment, if applicable. Discharge Plan Admission Admit Date/Time: 11/09/20 03:09 Primary Reason for Your Visit: Chest pain Attending Provider: Marcela Marino [facility] Providers: Lucinda Guzman Instructions Patient Instructions: ED Chest Pain, Noncardiac Discharge Orders/Prescriptions Prescriptions: New furosemide 40 mg Tablet 40 mg PO DAILY Qty: 30 RF: 0 metoprolol tartrate 100 mg Tablet 100 mg PO BID Qty: 60 RF: 0 isosorbide mononitrate 30 mg Tablet Extended Release 24 Hr 30 mg PO DAILY Qty: 30 RF: 0 diltiazem HCl 120 mg Capsule,Extended Release 24hr 120 mg PO Q12 Qty: 60 RF: 0 Eliquis 5 mg Tablet 5 mg PO BID Qty: 60 RF: 0 Continued lisinopril 40 MG tablet 40 mg PO QHS RF: 0 omega 9-epl-csk-fish oil 1 EACH capsule 1 cap PO DAILY RF: 0 aspirin 81 MG tablet,chewable 81 mg PO DAILY@0800 Qty: 30 RF: 0 multivitamin Tablet 1 tab PO DAILY RF: 0 potassium chloride 20 mEq Tablet Extended Release 20 meq PO DAILY RF: 0 Discontinued metoprolol tartrate 50 mg tablet 50 mg PO BID RF: 0 Referrals / Follow Up: Lc Glass MD [STAFF PHYSICIAN] - Within 2 Weeks [facility],Neli Canales [Primary Care Provider] - Within 2 Weeks Disposition Disposition (needs filled in before D/C Order can be placed): Home, Self Care
--- NOTE | 2020-11-12 11:22 | PCM.PN.CARD ---
Subjective Subjective The patient is awake and alert. He denies any chest discomfort. He states he no longer has any concerns of orthopnea or choking sensation when he is lying down. Objective Data Vital Signs: Vital Signs Temp Pulse Resp BP Pulse Ox 98.3 F 71 16 116/76 97 11/12/20 09:25 11/12/20 09:30 11/12/20 09:25 11/12/20 09:30 11/12/20 09:25 Oxygen Flow Rate (L/min) 2 Oxygen Delivery Method Room Air Weight: 404 lb 12.299 oz Body Mass Index (BMI) 49.9 Intake & Output: Intake and Output for Last 24 Hours 11/10/20 11/11/20 11/12/20 23:59 23:59 23:59 Intake Total 1000 / 1600 1374 / 1674 500 / 500 Output Total 1625 / 2375 1525 / 1725 200 / 200 Balance -625 / -775 -151 / -51 300 / 300 Lab / Micro Data Result Diagrams: 11/12/20 05:40 11/12/20 05:40 Labs: Laboratory Results - last 24 hr 11/12/20 05:40: WBC 4.4, RBC 4.98, Hgb 14.0, Hct 44.1, MCV 88.6, MCH 28.1, MCHC 31.7 L, RDW Std Deviation 44.4 H, RDW Coeff of Steve 13.8, Plt Count 242, MPV 10.9, Immature Gran % (Auto) 0.200, Neut % (Auto) 40.1 L, Lymph % (Auto) 45.1 H, [place] % (Auto) 9.8, Eos % (Auto) 4.1, Baso % (Auto) 0.7, Absolute Neuts (auto) 1.8 L, Absolute Lymphs (auto) 1.97, Nucleated RBC % 0 11/12/20 05:40: Sodium 140, Potassium 3.6, Chloride 107, Carbon Dioxide 27.0, Anion Gap 6, BUN 15, Creatinine 0.90, Estim Creat Clear Calc 133.38, Est GFR (MDRD) Af Amer 118, Est GFR (MDRD) Non-Af 98, BUN/Creatinine Ratio 16.7, Glucose 87, Calcium 8.6 Cardiology Labs/Tests 11/12/20 05:40: WBC 4.4, RBC 4.98, Hgb 14.0, Hct 44.1, MCV 88.6, MCH 28.1, MCHC 31.7 L, Plt Count 242, MPV 10.9, Immature Gran % (Auto) 0.200, Neut % (Auto) 40.1 L, Lymph % (Auto) 45.1 H, [place] % (Auto) 9.8, Eos % (Auto) 4.1, Baso % (Auto) 0.7, Absolute Neuts (auto) 1.8 L, Nucleated RBC % 0 11/12/20 05:40: Sodium 140, Potassium 3.6, Chloride 107, Carbon Dioxide 27.0, Anion Gap 6, BUN 15, Creatinine 0.90, Est GFR (MDRD) Af Amer 118, Est GFR (MDRD) Non-Af 98, BUN/Creatinine Ratio 16.7, Glucose 87, Calcium 8.6 Rhythm: Atrial flutter; nonsustained wide-complex tachycardia-irregular: Consider aberrancy Physical Exam Const alert, oriented x3, no apparent distress and healthy appearing Orientation / Consciousness: awake HEENT normocephalic, head/scalp atraumatic and hearing grossly normal bilaterally Eyes PERRL, EOMs intact bilaterally and conjunctivae normal Neck full ROM, supple and no JVD Resp normal respiratory effort and clear to auscultation bilaterally Auscultation: diminished lung sounds bilateral lower Cardio regular rate, S1 normal heart sound and S2 normal heart sound Cardio Narrative: Irregular rhythm Rhythm: abnormal rhythm irregularly irregular Heart Sounds: S1 normal and S2 normal GI normal to inspection, nondistended, normoactive bowel sounds Extremity normal to inspection and no pedal edema General Extremity: edema bilateral lower extremity Details: trace Skin no rashes or lesions noted Neuro oriented x3 Psych mental status grossly normal Assessment & Plan Assessment/Plan (1) Atrial fibrillation/flutter: PLAN: The patient has atrial flutter. He will continue rate control therapy and anticoagulant therapy as deemed appropriate. He has undergone noninvasive and invasive evaluation. As the patient's clinical course progresses consideration will be given as to a future attempt at regaining sinus rhythm which may include medical therapy, synchronized biphasic DC cardioversion-once he is been on anticoagulation therapy for an adequate period of time, or eventual EP consultation for EPS/RFA. 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 There is been concerned this may be rhythm/rate related. At the present time the patient will continue to be followed. He will continue medical therapy for his underlying rate/rhythm related issues. His cardiac catheterization did not demonstrate angiographically significant appearing CAD to explain his underlying cardiomyopathy. If over time, despite medical therapy, reassessment/therapy for his underlying atrial dysrhythmia, etc., his LV systolic function/LVEF does not improve then he will need to be considered for a primary prevention ICD. (3) Acute CHF: QUALIFIERS: Heart failure type: systolic Qualified Code(s): I50.21 - Acute systolic (congestive) heart failure PLAN: Upon admission there were concerns by the admitting team that the patient had acute CHF. He is being treated medically. He appears symptomatically improved. (4) Myocardial bridge: PLAN: The patient was found in the cardiac catheterization laboratory to have a distal LAD myocardial bridging segment. There was notation of compression of the portion of the LAD during systole. There was notation of ARISTEO-3 flow during diastole. His case was reviewed with interventional cardiology. The recommendation was continued conservative medical management with no immediate plans for any form of percutaneous or surgical based revascularization. (5) HTN (hypertension): QUALIFIERS: Hypertension type: unspecified Qualified Code(s): I10 - Essential (primary) hypertension PLAN: He will need continued medical management and follow-up with adjustment of medications accordingly. (6) CHRISTOPHER on CPAP: PLAN: He will need to continue his CHRISTOPHER therapy with his CPAP device. He does state, with respect to his device, he believes it is on recall. He states he has not been evaluated by anybody for his CHRISTOPHER in quite some time. Thus he should be considered for future pulmonary consultation to assist in his CHRISTOPHER/CPAP therapy. Addt'l Comments The patient's case was discussed and reviewed with the patient and Dr. Marino. This note was generated using a voice recognition system and there may be incorrect words, spelling or punctuation that were not noted when reviewing the office note prior to saving. Procedure Criteria Type of Procedure Procedure Type: Elective Elective Risks - COVID COVID Risk Discussion: The surgeon/proceduralist and patient have discussed in detail the risk of exposure to and/or potential harm posed by the COVID-19 virus with having a surgery/procedure at this time versus the risk of delaying the surgery/procedure. It is not possible to know either the risk of delaying the surgery or procedure or chance of getting an infection with perfect accuracy, but a joint decision was made between the patient and the surgeon/proceduralist to proceed at this time with the scheduled surgery/procedure as indicated on the consent form.
--- NOTE | 2020-11-12 11:49 | CASEMGMT ---
[facility] palliative screening tool completed and pt does qualify for pallative referral. Dr. Marino aware, no referral sent at this time. Pt up for discharge and to be sent home on Eliquis. Pt does not have Rx coverage and provided with Eliquis 30 day free trial card w/ instruction, voices understanding. Pt already provided with Rx assist resources. Pt voices no further questions/concerns/needs. Ilana THOMAS CM
--- NOTE | 2020-11-12 12:49 | DS.PCM_ITS ---
Documented by User: Joss WHITTINGTON 11/12/20 13:00 Providers Date of Admission: 11/09/20 Primary Care Physician: [facility] Consultations 11/09/20 03:37 Consult: Cardiology Routine Consulting Provider: Lucinda Guzman Reason for Consult: Aflutter, cardiomyopathy EMERGENT Consult: Yes MD Notified: Yes Date Notified: 11/09/20 Time Notified: 03:07 Method of Notification: Text Method of Consult:: In-Person Reason For Visit: AFIB WITH RVR Diagnosis Discharge Diagnosis (1) Atrial fibrillation/flutter: Status: Acute Code(s): I48.91 - Unspecified atrial fibrillation; I48.92 - Unspecified atrial flutter (2) Cardiomyopathy in disease classified elsewhere: Status: Acute Code(s): I43 - Cardiomyopathy in diseases classified elsewhere (3) Acute CHF: Status: Acute Code(s): I50.9 - Heart failure, unspecified Qualifiers: Heart failure type: systolic Qualified Code(s): I50.21 - Acute systolic (congestive) heart failure (4) Myocardial bridge: Status: Acute Code(s): Q24.5 - Malformation of coronary vessels (5) HTN (hypertension): Status: Chronic Code(s): I10 - Essential (primary) hypertension Qualifiers: Hypertension type: unspecified Qualified Code(s): I10 - Essential (primary) hypertension (6) CHRISTOPHER on CPAP: Status: Chronic Code(s): G47.33 - Obstructive sleep apnea (adult) (pediatric); Z99.89 - Dependence on other enabling machines and devices Medications at Discharge Home Medications lisinopril 40 mg PO QHS 01/11/20 omega 1-hay-byy-fish oil 1 cap PO DAILY 01/11/20 aspirin 81 mg PO DAILY@0800 #30 tab.chew 01/14/20 multivitamin 1 tab PO DAILY 11/09/20 potassium chloride 20 meq PO DAILY 11/09/20 apixaban [Eliquis] 5 mg PO BID #60 tab 11/12/20 diltiazem HCl 120 mg PO Q12 #60 cap 11/12/20 furosemide 40 mg PO DAILY #30 tab 11/12/20 isosorbide mononitrate 30 mg PO DAILY #30 tab 11/12/20 metoprolol tartrate 100 mg PO BID #60 tab 11/12/20 Hospital Course Procedures 2-D Echocardiogram and Cardiac catheterization Summary of Care Provided Minutes Spent on Discharge: 35 Hospital Course: Disposition: Patient to discharge home. 1) chest pain Cardiac catheterization completed on 11/11 findings as follows elevated left ventricular end-diastolic pressure, moderate global left ventricular systolic dysfunction, LVEF of 30% and angiographic findings consistent with intramyocardial bridge with compression during systole in the left anterior descending artery. Cardiology following and recommendations are for continue medical therapy, no surgical intervention indicated at this time. Plan; Eliquis, aspirin, diltiazem, furosemide, isosorbide and metoprolol initiated on discharge. Patient is to follow-up with primary care provider and cardiology within the next 2 weeks. 2) myocardial bridge Found on catheterization as noted above. No interventional management indicated at this time, to continue conservative medical management. 3) paroxysmal atrial fibrillation/flutter with RVR Patient on metoprolol at home for rate control. Patient has not been taking his Eliquis due to running out of his current prescription. Plan; as above, Eliquis initiated, continue metoprolol, Cardizem initiated. 4) acute on chronic CHF exacerbation with reduced ejection fraction Currently satting 96% on room air, not in any acute distress. BNP on admission was 533. Echocardiogram obtained on 11/10 demonstrated left ventricular dilatation with global left ventricular systolic dysfunction, an estimated EF of 20% and indeterminate RVSP and diastolic dysfunction. Ejection fraction appears worse from previous study completed in 01/2020. Cardiology following. Plan; continue Lasix, lisinopril and metoprolol. Follow-up with cardiology and primary care provider as above. 5) hypokalemia Resolved, currently 3.6. 6) HTN Stable, continue lisinopril, Cardizem and metoprolol. 7) CHRISTOPHER Continue home CPAP regimen. 8) morbid obesity Therapeutic lifestyle changes and weight loss advised. Dietitian consult ordered. Patient seen by Joss Weiss PA-C, under the supervision of Dr. Marino. Physical Exam Narrative Patient is a 44-year-old male comfortably resting in bed, alert and orient x3. Patient denies any development of symptoms overnight. Denies chest pain, shortness of breath, palpitations, hemoptysis, sputum production, fever, chills, N/V/D. Const alert, oriented x3 and no apparent distress HEENT normocephalic, head/scalp atraumatic and hearing grossly normal bilaterally Eyes PERRL, EOMs intact bilaterally and conjunctivae normal Neck no lymphadenopathy, supple and no JVD Resp normal respiratory effort, no retractions, no use of accessory muscles and clear to auscultation bilaterally Cardio regular rate, regular rhythm, no murmurs and no JVD GI normal to inspection, nondistended, normoactive bowel sounds, soft to palpation and non-tender Extremity normal to inspection and no clubbing, cyanosis or edema Skin no rashes or lesions noted, no wounds and skin turgor normal Neuro CN's II-XII intact bilaterally Psych affect normal Weight / BMI Weight Weight: 404 lb 12.299 oz Body Mass Index (BMI) 49.9 ABG / Lab / Microbiology Data Result Diagrams: 11/12/20 05:40 11/12/20 05:40 Laboratory: Laboratory Results - last 24 hr 11/12/20 05:40: WBC 4.4, RBC 4.98, Hgb 14.0, Hct 44.1, MCV 88.6, MCH 28.1, MCHC 31.7 L, RDW Std Deviation 44.4 H, RDW Coeff of Steve 13.8, Plt Count 242, MPV 10.9, Immature Gran % (Auto) 0.200, Neut % (Auto) 40.1 L, Lymph % (Auto) 45.1 H, [place] % (Auto) 9.8, Eos % (Auto) 4.1, Baso % (Auto) 0.7, Absolute Neuts (auto) 1.8 L, Absolute Lymphs (auto) 1.97, Nucleated RBC % 0 11/12/20 05:40: Sodium 140, Potassium 3.6, Chloride 107, Carbon Dioxide 27.0, Anion Gap 6, BUN 15, Creatinine 0.90, Estim Creat Clear Calc 133.38, Est GFR (MDRD) Af Amer 118, Est GFR (MDRD) Non-Af 98, BUN/Creatinine Ratio 16.7, Glucose 87, Calcium 8.6 Microbiology: Microbiology 11/09/20 01:49 Nasal Secretion SARS-CoV-2 Antigen (Rapid) - Final D/C Instructions Discharge Diet: No restrictions Weight Bearing Status: Weight bearing as tolerated Call your doctor if you observe: Fever of 101 or Higher, Numbness or Tingling, Shortness of breath, Dizziness, Chest pain, Increased palpitations (irregular heartbeat) and Calf discomfort Please Follow Up With: Primary care provider When: Within the next two weeks. Meaningful Use Info Meaningful Use Diagnoses (Choose all that apply): None applicable Discharge Plan Admission Admit Date/Time: 11/09/20 03:09 Primary Reason for Your Visit: Chest pain Attending Provider: Marcela Marino Primary Care Provider: [facility],Neli Canales Consulting Providers: Lucinda Guzman Instructions Patient Instructions: ED Chest Pain, Noncardiac Additional Instructions / Restrictions: Patient Problems: Altered Health Status related to Hospitalization Patient Goals: *Optimal Level of Health *Keep Appointments *Medication Compliance *Remain Safe Discharge Orders/Prescriptions Prescriptions: New furosemide 40 mg Tablet 40 mg PO DAILY Qty: 30 RF: 0 metoprolol tartrate 100 mg Tablet 100 mg PO BID Qty: 60 RF: 0 isosorbide mononitrate 30 mg Tablet Extended Release 24 Hr 30 mg PO DAILY Qty: 30 RF: 0 diltiazem HCl 120 mg Capsule,Extended Release 24hr 120 mg PO Q12 Qty: 60 RF: 0 Eliquis 5 mg Tablet 5 mg PO BID Qty: 60 RF: 0 Continued lisinopril 40 MG tablet 40 mg PO QHS RF: 0 omega 8-rtr-nde-fish oil 1 EACH capsule 1 cap PO DAILY RF: 0 aspirin 81 MG tablet,chewable 81 mg PO DAILY@0800 Qty: 30 RF: 0 multivitamin Tablet 1 tab PO DAILY RF: 0 potassium chloride 20 mEq Tablet Extended Release 20 meq PO DAILY RF: 0 Discontinued metoprolol tartrate 50 mg tablet 50 mg PO BID RF: 0 Referrals / Follow Up: Yoli Joshua PA [PHYSICIAN SCIENTIFIC RESEARCH MANAGER] - 11/27/20 10:00 am [facility],Neli Canales [Primary Care Provider] - 11/19/20 10:00 am (Appointment is with ) Disposition Disposition (needs filled in before D/C Order can be placed): Home, Self Care Documented by User: Dr. Marcela Marino DO 11/12/20 14:47 Providers Date of Admission: 11/09/20 Reason For Visit: AFIB WITH RVR Medications at Discharge Home Medications lisinopril 40 mg PO QHS 01/11/20 omega 2-kxr-aex-fish oil 1 cap PO DAILY 01/11/20 aspirin 81 mg PO DAILY@0800 #30 tab.chew 01/14/20 multivitamin 1 tab PO DAILY 11/09/20 potassium chloride 20 meq PO DAILY 11/09/20 apixaban [Eliquis] 5 mg PO BID #60 tab 11/12/20 diltiazem HCl 120 mg PO Q12 #60 cap 11/12/20 furosemide 40 mg PO DAILY #30 tab 11/12/20 isosorbide mononitrate 30 mg PO DAILY #30 tab 11/12/20 metoprolol tartrate 100 mg PO BID #60 tab 11/12/20 Hospital Course Procedures 2-D Echocardiogram and Cardiac catheterization Summary of Care Provided Minutes Spent on Discharge: 45 Hospital Course: Mr. Patricia is a 44-year-old -[place] male who presented to the emergency department [facility] on 11/09/2020 with a 1 week history of progressively worsening chest pain. On admission he reported the chest pain was substernal and nonradiating. He stated that the pain was pressure in nature and seems to be brought on with exertion. He denied any nausea, vomiting, or diaphoresis. He does have associated shortness of breath. He had unfortunately been noncompliant with his home medications and lost to follow-up with regards to cardiac catheterization which was to be performed after his recovery from COVID-19. He was found to be in atrial flutter with RVR and was placed on Cardizem and his metoprolol was increased to 100 mg p.o. twic e daily. Initially, the Cardizem was trialed off given his depressed EF but we were not able to ascertain good heart rate control and therefore was reinitiated. An echocardiogram was obtained to reevaluate his ejection fraction and was found to be 20% which was depressed when compared to his previous echo in January which showed an EF of 30%. He was taken for a left heart cath and found to have no occlusive coronary disease but a large myocardial bridge was noted at the distal LAD. He is to follow-up with cardiology after discharge and once has been anticoagulated for at least 30 days DCC will be considered. Also with his depressed EF, he may need to have primary prevention with an ICD placed if his LV function does not improve. Hopefully with improved rate control, adequate goal-directed therapy, and cessation of alcohol use his EF will improve. All these factors were discussed with the patient. I would recommend he follow-up with pulmonary for continued evaluation with regards to his sleep apnea. The patient and I discussed the importance of his continuation and the use of his CPAP to offload stress to his heart. His blood pressure control was not quite adequate and Imdur was added with improved control. Discharge diagnoses: Chest pain-resolved PAF/flutter-rate controlled LAD myocardial bridge Euthyroid sick syndrome Chronic heart failure with reduced ejection fraction-compensated Hypokalemia-resolved Hypertension Morbid obesity CHRISTOPHER Alcohol dependency Physical Exam Const alert, oriented x3 and no apparent distress Constitutional Narrative: Morbidly obese -[place] male, sitting up in bed, appears comfortable, very pleasant Orientation / Consciousness: awake, oriented to person, oriented to place and oriented to time Nutritional Appearance: morbidly obese HEENT normocephalic, head/scalp atraumatic, hearing grossly normal bilaterally and m oist oral mucous membranes Eyes PERRL, EOMs intact bilaterally and conjunctivae normal Neck no lymphadenopathy, supple and no JVD Neck Narrative: Short thick neck, no thyroid enlargement Resp normal respiratory effort, no retractions, no use of accessory muscles and clear to auscultation bilaterally Auscultation: Negative for crackles, rales, rhonchi or wheezes Cardio regular rate, regular rhythm, S1 normal heart sound, S2 normal heart sound, no murmurs, no rub, no gallops, no clicks and no JVD Cardio Narrative: Irregular rhythm Peripheral Pulses: pulses 2+ throughout GI normal to inspection, nondistended, normoactive bowel sounds, soft to palpation, non-tender and non-distended Extremity normal to inspection and no clubbing, cyanosis or edema Extremity Narrative: Right wrist post catheterization bandage in place with no signs of seepage or drainage General Extremity: edema bilateral lower extremity Details: mild Skin no rashes or lesions noted, no wounds, skin turgor normal and no jaundice Lesions: no lesions Rashes: no rashes Trauma: no lacerations or abrasions Neuro oriented x3, CN's II-XII intact bilaterally, moves all extremities, no focal m otor deficits, no sensory deficits noted and deep tendon reflexes 2+ bilaterally Sensorium / Orientation: awake and alert Psych mental status grossly normal and affect normal Psych Narrative: Very pleasant ABG / Lab / Microbiology Data Result Diagrams: 11/12/20 05:40 11/12/20 05:40 Discharge Plan Admission Admit Date/Time: 11/09/20 03:09 Primary Reason for Your Visit: Chest pain Attending Provider: Marcela Marino [facility] Providers: Lucinda Guzman Instructions Patient Instructions: ED Chest Pain, Noncardiac Additional Instructions / Restrictions: Patient Problems: Altered Health Status related to Hospitalization Patient Goals: *Optimal Level of Health *Keep Appointments *Medication Compliance *Remain Safe Discharge Orders/Prescriptions Prescriptions: New furosemide 40 mg Tablet 40 mg PO DAILY Qty: 30 RF: 0 metoprolol tartrate 100 mg Tablet 100 mg PO BID Qty: 60 RF: 0 isosorbide mononitrate 30 mg Tablet Extended Release 24 Hr 30 mg PO DAILY Qty: 30 RF: 0 diltiazem HCl 120 mg Capsule,Extended Release 24hr 120 mg PO Q12 Qty: 60 RF: 0 Eliquis 5 mg Tablet 5 mg PO BID Qty: 60 RF: 0 Continued lisinopril 40 MG tablet 40 mg PO QHS RF: 0 omega 5-wjp-lyc-fish oil 1 EACH capsule 1 cap PO DAILY RF: 0 aspirin 81 MG tablet,chewable 81 mg PO DAILY@0800 Qty: 30 RF: 0 multivitamin Tablet 1 tab PO DAILY RF: 0 potassium chloride 20 mEq Tablet Extended Release 20 meq PO DAILY RF: 0 Discontinued metoprolol tartrate 50 mg tablet 50 mg PO BID RF: 0 Referrals / Follow Up: Yoli Joshua PA [PHYSICIAN SCIENTIFIC RESEARCH MANAGER] - 11/27/20 10:00 am [facility],Neli Canales [Primary Care Provider] - 11/19/20 10:00 am (Appointment is with ) Disposition Disposition (needs filled in before D/C Order can be placed): Home, Self Care Charges/Coding Visit Charges Inpatient E&M: 33623 Disch Hosp
--- NOTE | 2020-11-13 15:50 | CASEMGMT ---
RN CM Discharge Follow-up Phone Call: AZAR: Melissa Strata:3 Call Date: 11/13/20 Discharge Date: 11/12/20 Time of Call: [id number] Admitting Diagnosis: Afib RVR, CHF This RN CM phoned patient regarding discharge follow-up. Pt states he has been doing ok since discharge. States he has been experiencing some lightheadedness/dizziness primarily with standing. States he was told his body will need to adjust to the new medications. Reviewed precautions including standing up slowly and pausing prior to beginning to walk. Pt expressed understanding. Also instructed him to contact [facility]'s office if this persists or worsens. Pt states he is aware of his follow-up appointment on 11/27 with NELSY Abraham and at [facility] on 11/19. Reviewed medications. Pt able to state the purpose of the lopressor/metropolol, furosemide, and Eliquis. Reviewed cardizem and isosorbide purposes with pt. Pt expressed understanding. When asked if he is weighing himself, pt reports that he is following a fluid restriction diet of 2000mL per day and also a low to no sodium diet. Pt able to state that his fluid intake includes all fluids including fruits, yogurts, and ice cream. Discuss taking his BP and he states he does not have a BP cuff/machine but he has it on his list to purchase. States he will enquire at [facility] if they have any resources for him. Pt states his Eliquis was $500 and that the discount care provided did not work at [facility]. This RN CM contacted DD and viky Bhat pt had used an Eliquis card in the past and therefore was not eligible for the discount due to a once in a lifetime limit. This RN contacted the [facility] and left a voicemail message requesting a return call to discuss pt's anticoagulation medication as pt reports not having any prescription coverage. Pt states he is also in the process of turning in his notice to his employer has he does not think he will be able to work with his current medical conditions. Called patient back and informed him of the reason the discount card would not work and that a follow-up call has been placed to the [facility]. Reviewed previous notes and pt was discharged in 01/2020 on Xeralto but his office note from 02/2020 notes him to be on Eliquis. Pt denies being on this medication prior to this admission admission and states at one point he was on Plavix. Pt states he has not been paying $500 a month for any medication. Will continue to follow and assist as able. Cheryl Zhao RN CM
--- NOTE | 2020-11-13 16:47 | CASEMGMT ---
WILLIAM ANDERSON follow-up: Return call received from Heidi from the [facility] who states pt can be placed on coumadin instead of the Eliquis but there are concerns with pt's compliance with INR monitoring. Heidi also stated an application can be processed through the drug [employer] for financial assistance which they will reach out to patient to initiate. This WILLIAM ANDERSON called patient and explained the same and encouraged him to reach out to the [facility] office in follow-up. Pt does have his appointment on 11/27 with Yoli Joshua. Cheryl Zhao RN CM
== END 2020-11-12 14:33 | disposition home or self-care (01) | DRG 286 ==
LOC: ED 02:55 → PCU 03:12
PROVIDERS: Family Medicine; Internal Medicine Cardiovascular Disease; Nurse Practitioner Family; Admitting Provider Hospitalist; Emergency Provider Emergency Medicine; Visit Provider Internal Medicine
DX: I48.92 Unspecified atrial flutter (principal); I50.23 Acute on chronic systolic (congestive) heart failure; Q24.5 Malformation of coronary vessels; Z68.43 Body mass index [BMI] 50.0-59.9, adult; I48.0 Paroxysmal atrial fibrillation; E07.81 Sick-euthyroid syndrome; I43 Cardiomyopathy in diseases classified elsewhere; E66.01 Morbid (severe) obesity due to excess calories; E78.5 Hyperlipidemia, unspecified; E87.6 Hypokalemia; G47.33 Obstructive sleep apnea (adult) (pediatric); I11.0 Hypertensive heart disease with heart failure; I25.10 Atherosclerotic heart disease of native coronary artery without angina pectoris; F10.20 Alcohol dependence, uncomplicated; Z91.14 Patient's other noncompliance with medication regimen; Z86.16 Personal history of COVID-19; Z79.01 Long term (current) use of anticoagulants; Z79.899 Other long term (current) drug therapy; Z87.891 Personal history of nicotine dependence
CPT/HCPCS: 36415; 71045; 80048; 80053; 80061; 83735; 83880; 84100; 84439; 84443; 84484; 85025; 85610; 87426; 93005; 93306; 93458; 97802; 99152; 99153; 99285; J7030; Q9957; Q9967; A4216; C1769; C1894; C8929; J1940; J3490

== ENCOUNTER 2021-03-31 12:52 | Outpatient (CLI) | payer MEDICAID, SELFPAY ==
--- NOTE | 2021-03-31 12:56 | ECHOLC_ITS ---
Reason For Study: CARDIOMYOPATHY Procedure This was a limited 2D transthoracic echocardiogram. The study was technically difficult. Due to body habitus. Contrast injection was performed. Limited views were obtained. Exam performed in department. Left Ventricle Based upon the 2D echocardiographic and contrast enhanced images obtained there appears to be left ventricular dilatation and global left ventricular systolic dysfunction. The estimated ejection fraction is 25 %. Mitral Valve There is no mitral annular calcification. Normal mitral valve. Tricuspid Valve Normal tricuspid valve. Aortic Valve Trisinus/trileaflet aortic valve. Mild focal aortic valve thickening. Pulmonic Valve The pulmonic valve is not well visualized. Great Vessels The aortic root is not well visualized. Medication 22 gauge I.V. with prn adaptor inserted into right arm. Diluted definity 4.0ml given slow IV push to enhance endocardial definition. ECHO/Echo Limited w/Contrast Interpretation Summary The study was technically difficult. Contrast injection was performed. Limited views were obtained. Based upon the 2D echocardiographic and contrast enhanced images obtained there appears to be left ventricular dilatation and global left ventricular systolic dysfunction. The estimated ejection fraction is 25 %. Ordering Physician: Yoli Joshua Referring Physician: [facility] Performed By: Sandra Oliver RDCS, RVT
== END 2021-03-31 23:59 | disposition short-term general hospital (02) ==
PROVIDERS: Referring Provider Physician Assistant Medical; Visit Provider Physician Assistant Medical
DX: I48.91 Unspecified atrial fibrillation (principal); I43 Cardiomyopathy in diseases classified elsewhere; I49.2 Junctional premature depolarization
CPT/HCPCS: 93308; Q9957; A4216; C8924

== ENCOUNTER 2021-04-08 12:30 | Outpatient (CLI) | payer MEDICAID, SELFPAY ==
[2021-04-08 12:55] LABS: Absolute Lymphocyte Count 1.68 X10^3/uL (0.83-4.51); Absolute Neutrophil Count 2.2 X10^3/uL (2.0-7.7); Basophil# 0.03 X10^3/uL; Basophil% 0.7 % (0-1); Eosinophil# 0.16 X10^3/uL; Eosinophils% 3.5 % (0-5); Hematocrit 45.5 % (40-54); Lymphocyte # 1.68 X10^3/ul (0.83-4.51); Lymphocyte % 37.2 % (19-41); Mean Corpuscular Hgb 28.6 pg (27.0-32.0); Mean Corpuscular Volume 86.8 fL (80-94); Mean Platelet Vol. 11.4 fl (6.2-12.0); Monocyte# 0.41 X10^3/uL; Monocyte% 9.1 % (0-10); NRBC Flagged by Analyzer 0 % (0-5); Neutrophil # 2.23 X10^3/uL (2.7-7.7); Neutrophil % 49.3 % (47-70); Platelet Count 236 K/mm3 (150-450); RBC Distribution Width CV 13.9 % (11.6-14.6); RBC Distribution Width SD 43.9 fl (35.1-43.9); Red Blood Count 5.24 M/mm3 (4.6-6.2); White Blood Count 4.5 K/mm3 (4.4-11.0)
[2021-04-08 13:18] LABS: ALB/GLOB Ratio 0.8 RATIO (0.9-2.4); AST(SGOT) 15 U/L (15-37); Alanine Aminotransfer ALT/SGPT 34 U/L (16-61); Albumin, Serum 3.7 g/dL (3.2-5.0); Alkaline Phosphatase 57 U/L (45-117); Anion Gap 7 (5-15); BUN 9 mg/dL (7-18); Calcium,Total 8.8 mg/dL (8.5-10.1); Chloride 107 mmol/L (98-107); EST Glomerular Filtration Rate 86 mL/min (>60); Est Glom Filt Rate - Afr Amer 104 mL/min (>60); Globulin 4.5 g/dL (2.2-4.2); Glucose 99 mg/dL (74-106); Potassium 3.7 mmol/L (3.5-5.1); Protein, Total 8.2 g/dL (6.4-8.2); Sodium Level 140 mmol/L (136-145)
== END 2021-04-08 23:59 | disposition short-term general hospital (02) ==
LOC: LAB 12:33
PROVIDERS: Referring Provider Physician Assistant Medical; Visit Provider Physician Assistant Medical
DX: Q24.5 Malformation of coronary vessels (principal); I43 Cardiomyopathy in diseases classified elsewhere; I48.91 Unspecified atrial fibrillation; I48.92 Unspecified atrial flutter
CPT/HCPCS: 36415; 80053; 85025

== ENCOUNTER 2024-03-02 23:04 | Emergency (ER) | payer MEDICAID, SELFPAY ==
[2024-03-02 23:05] VITALS: BP 140/88; PULSE 84; RESP 16; TEMP 36.9; O2SAT 100
--- NOTE | 2024-03-02 23:15 | EKG12_ITS ---
Test Reason : LETHARGIC Blood Pressure : */* mmHG Vent. Rate : 79 BPM Atrial Rate : 79 BPM P-R Int : 164 ms QRS Dur : 88 ms QT Int : 374 ms P-R-T Axes : 60 -89 53 degrees QTcB Int : 428 ms Normal sinus rhythm Left axis deviation Abnormal ECG When compared with ECG of 11-Nov-2020 06:31, Sinus rhythm has replaced Atrial flutter QRS axis Shifted left ST no longer depressed in Inferior leads T wave inversion no longer evident in Inferior leads T wave inversion no longer evident in Lateral leads Confirmed by PEPE NAM, BRETT ([id number]), news videotape editor LUIS A DUNBAR ([id number]) on 03/06/2024 9:14:27 AM Referred By: Confirmed By: BRETT CANTU MD
[2024-03-02 23:30] VITALS: BP 116/71; PULSE 84; RESP 17; O2SAT 96; O2SAT 97; BMI 43.7
[2024-03-02 23:36] VITALS: BMI 43.7
[2024-03-03] VITALS (11 sets, daily range): BP systolic 85–133; BP diastolic 49–78; PULSE 74–92; RESP 15–28; TEMP 36.7; O2SAT 96–99
--- NOTE | 2024-03-03 00:05 | RAD_ITS ---
EXAM: XR CHEST, 1 VIEW CLINICAL INDICATION: Stroke TECHNIQUE: Frontal view of the chest. COMPARISON: 11/09/2020. FINDINGS: LUNGS AND PLEURAL SPACES: Scarring or subsegmental atelectasis right lung base. No pneumothorax. No effusion. HEART: Stable mild cardiomegaly. MEDIASTINUM: Central airways and mediastinal contour are unremarkable. BONES/JOINTS: Unremarkable. No acute fracture. SOFT TISSUES: Unremarkable. TUBES, LINES AND DEVICES: AICD pacemaker leads in good position. RAD/Chest 1 View (Portable) IMPRESSION: 1. AICD pacemaker leads in good position. 2. Stable mild cardiomegaly. 3. Scarring or subsegmental atelectasis right lung base. Electronically Signed: Anuj Lee MD at 0:58 EST ,
--- NOTE | 2024-03-03 00:29 | CT_ITS ---
EXAM: CT HEAD WITHOUT INTRAVENOUS CONTRAST CLINICAL INDICATION: Paresthesias TECHNIQUE: Multiple axial images were obtained of the head without intravenous contrast. This CT exam was performed using one or more of the following dose reduction techniques: automated exposure control, adjustment of the mA and/or kV according to patient size, and/or use of iterative reconstruction technique. RADIATION DOSE: CTDIvol = 44.99 mGy, DLP = 829.85 mGy-cm COMPARISON: 08/02/2010. FINDINGS: BRAIN AND EXTRA-AXIAL SPACES: Unremarkable. No intra- or extra-axial hemorrhage. No evidence of acute infarct. No intracranial mass or mass effect. There is preservation of the stern/white matter interface. Posterior fossa structures are unremarkable. Ventricles are appropriate for age. No hydrocephalus. Basal cisterns are patent. BONES/JOINTS: Unremarkable. No discrete lytic or blastic abnormalities. SINUSES: Unremarkable as visualized. Clear. MASTOID AIR CELLS: Unremarkable. Clear. ORBITS: Visualized globes, extraocular muscles, optic nerves and retrobulbar fat appear unremarkable. CT/Brain/Head without Contrast IMPRESSION: No acute intracranial abnormality. Electronically Signed: Anuj Lee MD at 2:38 EST ,
[2024-03-03 01:05] LABS: Anion Gap 5 (5-15); BUN 10 mg/dL (7-18); BUN/Creat Ratio 10.8 RATIO (10-20); Calcium,Total 8.6 mg/dL (8.5-10.1); Chloride 106 mmol/L (98-107); Creatinine, Serum 0.92 mg/dL (0.70-1.30); EST Glomerular Filtration Rate 93 mL/min (>60); Est Glom Filt Rate - Afr Amer 113 mL/min (>60); Estimated Creatinine Clearance 168.96 ml/min; Glucose 85 mg/dL (74-106); Magnesium 2.1 mg/dL (1.6-2.6); Potassium 3.5 mmol/L (3.5-5.1); Sodium Level 134 mmol/L (136-145)
[2024-03-03 01:34] LABS: Absolute Lymphocyte Count 0.41 X10^3/uL (0.83-4.51); Absolute Neutrophil Count 4.5 X10^3/uL (2.0-7.7); Basophil# 0.02 X10^3/uL; Basophil% 0.4 % (0-1); Eosinophil# 0.01 X10^3/uL; Eosinophils% 0.2 % (0-5); Hematocrit 44.9 % (40-54); Hemoglobin 14.3 g/dL (13.0-16.5); Lymphocyte # 0.41 X10^3/ul (0.83-4.51); Lymphocyte % 7.8 % (19-41); Mean Corp Hgb Conc 31.8 g/dL (32-36); Mean Corpuscular Hgb 28.5 pg (27.0-32.0); Mean Corpuscular Volume 89.4 fL (80-94); Mean Platelet Vol. 11.5 fl (6.2-12.0); Monocyte# 0.31 X10^3/uL; Monocyte% 5.9 % (0-10); NRBC Flagged by Analyzer 0 % (0-5); Neutrophil # 4.47 X10^3/uL (2.7-7.7); Neutrophil % 85.1 % (47-70); POSITIVE DIFFERENTIAL YES; Platelet Count 120 K/mm3 (150-450); RBC Distribution Width CV 13.8 % (11.6-14.6); RBC Distribution Width SD 45.1 fl (35.1-43.9); Red Blood Count 5.02 M/mm3 (4.6-6.2); White Blood Count 5.3 K/mm3 (4.4-11.0)
[2024-03-03 01:46] LABS: International Normalized Ratio 1.2; Prothrombin Time (Protime)PT. 15.5 SECONDS (11.7-14.9)
[2024-03-03 01:47] LABS: Partial Thromboplast Time 26.7 Seconds (24.1-36.2)
--- NOTE | 2024-03-03 02:53 | EX.ED.DYSGE1 ---
HPI History of Present Illness Chief Complaint: Neuro S/Sx Informant: patient Narrative Narrative: Patient is a 48-year-old male with past medical history of hypertension anxiety and depression as well as paroxysmal atrial fibrillation currently on Eliquis. He states a few hours prior to arrival he went to stand and his legs felt weak and he felt numb and tingly. He reports he has a defibrillator and denies that there was any type of discharge. He states that he was unsure if this was a potential neurologic event based on his paresthesias and therefore comes in for evaluation. [facility] Medical History (Updated 03/12/24 @ 08:[address] 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 Atrial fibrillation Home Medications ?Medication ?Instructions ?Recorded ?Last Taken ?Type aspirin 81 mg chewable tablet 81 mg PO DAILY@0800 ##30 01/14/20 Unknown Rx multivitamin 1 tab PO DAILY 11/09/20 Unknown History ferrous sulfate 325 mg (65 mg 325 mg PO DAILY 04/08/21 Unknown History iron) tablet (Feosol) apixaban 5 mg tablet (Eliquis) 5 mg PO BID #60 tabs 06/13/23 Unknown Rx dapagliflozin propanediol 10 mg 10 mg PO DAILY #30 tabs 09/12/23 Unknown Rx tablet (Farxiga) furosemide 40 mg tablet 40 mg PO DAILY #30 tabs 09/12/23 Unknown Rx isosorbide mononitrate 30 mg 30 mg PO DAILY #30 tabs 09/13/23 Unknown Rx tablet,extended release 24 hr sacubitril 49 mg-valsartan 51 mg 1 tab PO BID #60 tabs 09/23/23 Unknown Rx tablet (Entresto) metoprolol tartrate 100 mg tablet 100 mg PO BID #180 tabs 11/25/23 Unknown Rx Allergy/AdvReac Type Severity Reaction Status Date / Time hydrochlorothiazide AdvReac Intermediate low K+ Verified 03/02/24 23:09 Family History Mother Hypertension Cancer ovarian Other Anxiety Hyperlipidemia Social History household members: none current occupational status: employed leisure activities: exercise Smoking Status: Former smoker alcohol intake: current alcohol intake frequency: a few times a week substance use type: marijuana and other details: occasional ROS ROS ED Constitutional Constitutional ED: Denies chills or fever(s) Eyes Eyes: Denies change in vision ENT ENT ED: Denies sore throat Cardiovascular Cardiovascular: Denies chest pain, palpitations or racing heartbeat Respiratory/Chest Respiratory/Chest: Denies cough or dyspnea Gastrointestinal Gastrointestinal: Denies abdominal pain, diarrhea, nausea or vomiting Genitourinary Genitourinary ED: Denies dysuria Musculoskeletal Musculoskeletal: Denies neck pain Integumentary Denies rash Neurologic Neurologic: Reports paresthesias and weakness; Denies headache(s) Psychiatric Psychiatric: Reports anxiety and depression Hematologic/Lymphatic Hematologic/Lymphatic: Reports easy bleeding and easy bruising EXAM Physical Exam Const Vital Signs: 03/02/24 23:05 03/02/24 23:30 03/02/24 23:30 Temperature 98.4 F Temperature Source Oral Pulse Rate 84 84 Respiratory Rate 16 17 Respiratory Effort Respiratory Pattern Blood Pressure 140/88 H 116/71 Blood Pressure Mean 105 86 Pulse Ox 100 97 96 Oxygen Delivery Method Room Air Room Air Room Air 03/02/24 23:35 03/03/24 00:05 03/03/24 01:00 Temperature Temperature Source Pulse Rate 86 83 Respiratory Rate 19 H 17 Respiratory Effort Normal Respiratory Pattern Normal Blood Pressure 116/64 Blood Pressure Mean 81 Pulse Ox 97 98 Oxygen Delivery Method Room Air Room Air 03/03/24 01:12 03/03/24 01:15 03/03/24 01:20 Temperature Temperature Source Pulse Rate 80 74 81 Respiratory Rate 19 H 18 15 Respiratory Effort Respiratory Pattern Blood Pressure 85/49 L 132/78 H Blood Pressure Mean 59 94 Pulse Ox 96 97 98 Oxygen Delivery Method Room Air 03/03/24 01:30 03/03/24 01:35 03/03/24 01:45 Temperature Temperature Source Pulse Rate 92 Respiratory Rate 28 H Respiratory Effort Respiratory Pattern Blood Pressure 110/74 122/61 H Blood Pressure Mean 85 79 Pulse Ox Oxygen Delivery Method 03/03/24 02:00 03/03/24 02:00 03/03/24 02:15 Temperature Temperature Source Pulse Rate 81 78 81 Respiratory Rate 16 16 Respiratory Effort Respiratory Pattern Blood Pressure 129/69 H 124/68 H 129/69 H Blood Pressure Mean 89 84 85 Pulse Ox 98 96 Oxygen Delivery Method Room Air Room Air Positive well nourished, well developed and obese General Appearance ED: well developed; Negative for pallor Nutritional Appearance: obese HEENT HEENT Narrative: Normocephalic atraumatic Eyes PERRL and EOMs intact bilaterally General Eye ED: Negative for scleral icterus Neck supple Neck Narrative: No nuchal rigidity or meningeal sign Negative Spurling sign bilaterally No bony deformity or step-off of the cervical spine no midline tenderness to palpation Resp normal respiratory effort and clear to auscultation bilaterally Cardio regular rate and regular rhythm Rate: other Other Details: Heart is regular rate and rhythm Radial and carotid pulses are equal and symmetric No carotid bruit noted GI normal to inspection, nondistended, normoactive bowel sounds, non-tender, non-distended and no masses Auscultation: normoactive bowel sounds Palpation: soft Extremity normal to inspection Neuro oriented x3, CN's II-XII intact bilaterally and no sensory deficits noted Neuro Narrative: GCS of 15 Cranial nerves II through XII are grossly intact without focal neurologic deficit No pronator drift no dysmetria no truncal ataxia NIH stroke scale score of 0 Sensorium / Orientation: alert Motor Exam: strength 5/5 throughout Psych Mood & Affect: anxious Skin no rashes or lesions noted General Skin Exam: Negative for jaundice or pallor MDM MDM MDM Narrative Medical decision making narrative: Patient arrived to the ER slightly hypertensive but otherwise with stable vitals. He reported paresthesias. However there is no obvious focal neurologic deficit and therefore I felt no need to activate a stroke alert. With concern that this could be related to spinal stenosis or herniated disc or foraminal stenosis a CT of the cervical spine was obtained. In order to ensure this was not a spontaneous bleed or mass within the brain as he is on Eliquis a CT of the head was obtained. In order to rule out electrolyte abnormalities such as hyponatremia or hypokalemia as a cause patient blood work was ordered. Labs revealed no clinically significant finding. Imaging study showed no changes either. On reevaluation vitals are stable and his symptoms have since improved and therefore he is otherwise safe for discharge. History & Record Review Discussion w/independent historian: Patient Lab Data Attestation: I reviewed the patient's lab results. Labs: Laboratory Results - last 24 hr 03/03/24 03/03/24 00:29 01:24 WBC 5.3 RBC 5.02 Hgb 14.3 Hct 44.9 MCV 89.4 MCH 28.5 MCHC 31.8 L RDW Std Deviation 45.1 H RDW Coeff of Steve 13.8 Plt Count 120 L MPV 11.5 Immature Gran % (Auto) 0.600 Neut % (Auto) 85.1 H Lymph % (Auto) 7.8 L Hardeman % (Auto) 5.9 Eos % (Auto) 0.2 Baso % (Auto) 0.4 Absolute Neuts (auto) 4.5 Absolute Lymphs (auto) 0.41 L Nucleated RBC % 0 PT 15.5 H INR 1.2 APTT 26.7 Sodium 134 L Potassium 3.5 Chloride 106 Carbon Dioxide 23.0 Anion Gap 5 BUN 10 Creatinine 0.92 Estim Creat Clear Calc 168.96 Est GFR (MDRD) Af Amer 113 Est GFR (MDRD) Non-Af 93 BUN/Creatinine Ratio 10.8 Glucose 85 Calcium 8.6 Magnesium 2.1 Radiography Diagnostic Testing: Clinical Impression(s) from Imaging Studies Chest X-Ray 03/03/24 00:05 IMPRESSION: 1. AICD pacemaker leads in good position. 2. Stable mild cardiomegaly. 3. Scarring or subsegmental atelectasis right lung base. Electronically Signed: Anuj Lee MD at 0:58 EST , Brain CT 03/03/24 00:29 IMPRESSION: No acute intracranial abnormality. Electronically Signed: Anuj Lee MD at 2:38 EST , Chest x-ray as interpreted by the emergency medicine physician reveals no acute infiltrate pneumothorax or pleural effusion with AICD in proper position Discharge Plan Triage Chief Complaint: Neuro S/Sx Other Complaint: Syncope ED Provider: Andrews Villatoro Dx/Rx/DC Orders Clinical Impression: Paresthesias, Lumbar radiculopathy, Paroxysmal atrial fibrillation, Current use of longterm anticoagulation Instructions: Understanding Lumbar Radiculopathy, ED Paraesthesias Prescriptions: No Action ferrous sulfate [Feosol] 325 mg (65 mg iron) tablet 325 mg PO DAILY aspirin 81 MG tablet,chewable 81 mg PO DAILY@0800 Qty: 30 0RF multivitamin Tablet 1 tab PO DAILY Eliquis 5 mg tablet 5 mg PO BID Qty: 60 11RF Farxiga 10 mg tablet 10 mg PO DAILY Qty: 30 11RF furosemide 40 mg tablet 40 mg PO DAILY Qty: 30 11RF isosorbide mononitrate 30 mg tablet extended release 24 hr 30 mg PO DAILY Qty: 30 11RF Entresto 49-51 mg tablet 1 tab PO BID Qty: 60 11RF metoprolol tartrate 100 mg tablet 100 mg PO BID Qty: 180 3RF Primary Care Provider: Matteo Blunt Referrals: Matteo Blunt, SENIOR QC TECHNICIAN-C [Primary Care Provider] - Activity Restrictions/Additional Instructions: Your workup did not show any sign of brain bleed or mass or obvious strokelike symptoms. I do feel your leg numbness and tingling is related to potential nervous compression. You need to discuss with your family doctor about obtaining an MRI to better evaluate this. Return to the ER should you have any further concerns Print Language: Danish Disposition Disposition: Home, Self Care Discharge Date/Time: 03/03/24 03:18
== END 2024-03-03 03:18 | disposition home or self-care (01) ==
PROVIDERS: Emergency Provider Emergency Medicine; PCP Nurse Practitioner Family; Visit Provider Emergency Medicine
DX: R20.2 Paresthesia of skin (principal); I48.0 Paroxysmal atrial fibrillation; M54.16 Radiculopathy, lumbar region; I10 Essential (primary) hypertension; Z87.891 Personal history of nicotine dependence; Z79.01 Long term (current) use of anticoagulants; Z95.810 Presence of automatic (implantable) cardiac defibrillator; G47.33 Obstructive sleep apnea (adult) (pediatric); Z99.89 Dependence on other enabling machines and devices; Z79.82 Long term (current) use of aspirin; Z79.899 Other long term (current) drug therapy
CPT/HCPCS: 36415; 70450; 71045; 80048; 83735; 85025; 85610; 85730; 93005; 99285; A4216

== ENCOUNTER → 2024-03-27 | Outpatient (CLI) | payer MEDICAID, SELFPAY ==
[2024-03-27 12:46] LABS: Absolute Lymphocyte Count 1.29 X10^3/uL (0.83-4.51); Basophil# 0.04 X10^3/uL; Basophil% 0.7 % (0-1); Eosinophil# 0.04 X10^3/uL; Eosinophils% 0.7 % (0-5); Hematocrit 47.3 % (40-54); Hemoglobin 14.8 g/dL (13.0-16.5); Lymphocyte # 1.29 X10^3/ul (0.83-4.51); Lymphocyte % 21.7 % (19-41); Mean Corp Hgb Conc 31.3 g/dL (32-36); Mean Corpuscular Hgb 28.2 pg (27.0-32.0); Mean Corpuscular Volume 90.3 fL (80-94); Mean Platelet Vol. 11.7 fl (6.2-12.0); Monocyte# 0.62 X10^3/uL; Monocyte% 10.4 % (0-10); NRBC Flagged by Analyzer 0 % (0-5); Neutrophil # 3.95 X10^3/uL (2.7-7.7); Neutrophil % 66.3 % (47-70); Platelet Count 163 K/mm3 (150-450); RBC Distribution Width CV 13.9 % (11.6-14.6); RBC Distribution Width SD 45.9 fl (35.1-43.9); Red Blood Count 5.24 M/mm3 (4.6-6.2)
[2024-03-27 13:09] LABS: ALB/GLOB Ratio 0.7 RATIO (0.9-2.4); AST(SGOT) 9 U/L (15-37); Alanine Aminotransfer ALT/SGPT 17 U/L (16-61); Albumin, Serum 3.5 g/dL (3.2-5.0); Alkaline Phosphatase 47 U/L (45-117); Anion Gap 7 (5-15); BUN 11 mg/dL (7-18); BUN/Creat Ratio 11.5 RATIO (10-20); Calcium,Total 9.6 mg/dL (8.5-10.1); Chloride 103 mmol/L (98-107); Creatinine, Serum 0.95 mg/dL (0.70-1.30); EST Glomerular Filtration Rate 90 mL/min (>60); Est Glom Filt Rate - Afr Amer 109 mL/min (>60); Globulin 4.8 g/dL (2.2-4.2); Glucose 107 mg/dL (74-106); Potassium 3.9 mmol/L (3.5-5.1); Protein, Total 8.3 g/dL (6.4-8.2); Sodium Level 140 mmol/L (136-145)
== END | disposition home or self-care (01) ==
LOC: VSLAB 11:10
PROVIDERS: PCP Nurse Practitioner Family; Visit Provider Nurse Practitioner Family
DX: R17 Unspecified jaundice (principal)
CPT/HCPCS: 36415; 80053; 85025